=== PATIENT | male | born 1950 | race Caucasian/White ===

== ENCOUNTER 2020-10-06 21:29 | Inpatient (IN) | payer MEDICARE ==
[2020-10-06] MEDS ORDERED: PIPERACILLIN-TAZOBACTAM 3.375 GM in SODIUM CHLORIDE 0.9% 100 ML IVPB STA (22:18)
--- NOTE | 2020-10-06 22:18 | ED ---
General Adult HPI - General Chief complaint: Shortness of Breath Stated complaint: +COVID,FRANCIA Time Seen by Provider: 10/06/20 22:03 Source: EMS Mode of arrival: EMS - History of Present Illness Initial comments: Dictation was produced using Net[employer] dictation software. please excuse any grammatical, word or spelling errors. This patient was cared for during a federal and state declared state of emergency secondary to Covid 19 Chief Complaint: 70-year-old male transferred from [facility] for Covid 19 and hypoxic respiratory failure. History of Present Illness: 70-year-old male he is unable to provide HPI. Patient was transferred from [facility]. Patient's Covid positive found have diffuse bilateral infiltrates consistent Covid 19 pneumonia. Patient was found to be hypoxic and was intubated [facility]. He was transferred here for higher level of care. Documentation Was Reviewed. Patient Allegedly Has Been Dyspneic for a Week. He Was Urged by His to Seek Medical Attention. Unable to obtain significant to review of systems PHYSICAL EXAM: General Impression: Obtunded, intubated, dusky skin HEENT: Normocephalic atraumatic, extra-ocular movements intact, pupils equal and reactive to light bilaterally, dry mucous membranes, pupils nondilated Cardiovascular tachycardic Chest: Intubated, no retractions, no tachypnea Abdomen: abdomen soft, non-distended, no organomegaly Musculoskeletal: Pulses present and equal in all extremities, no peripheral edema Neurological: Sedated ED course: 70-year-old male transferred from [facility] for hypoxic respiratory failure. Eyes in the emergency department shows tachycardia, rest of vital signs within acceptable limits. Central line was placed in the left internal jugular, radial art line was placed in the right upper extremity. Chest her documentation was reviewed. He had elevated troponin. Transfer DrTone placed patient on heparin. Patient had elevated proBNP, elevated protein calcitonin, elevated white blood cell count. Differential is wide and patient's respiratory symptoms are multifactorial. Patient was given Decadron. Patient be placed on antibiotics concerns of superimposed bacterial pneumonia. Case is discussed in detail with surveillance manager Dr. Blood. He request that CT imaging be performed for concerns of possible pulmonary embolism. CT angios did not show any pulmonary embolism. Patient will be transferred to the intensive care unit for further care. EKG interpretation: Ventricular rate 120, sinus tachycardia, SD interval 134, QRS 102, QTc 467, there is a S1 every 3 T3 pattern. No SD prolongation, no QTC prolongation. - Related Data Home Medications Medication Instructions Recorded Confirmed Lansoprazole [Prevacid] 15 mg PO DAILY 10/06/20 10/06/20 Allergies Allergy/AdvReac Type Severity Reaction Status Date / Time No Known Allergies Allergy Unverified 10/06/20 22:05 Review of Systems ROS Statement: Those systems with pertinent positive or pertinent negative responses have been documented in the HPI. ROS Other: All systems not noted in ROS Statement are negative. Course Vital Signs 10/06/20 10/06/20 10/06/20 21:45 22:00 22:45 Temperature 97.8 F Pulse Rate 134 H 128 H 126 H Respiratory 16 28 H 22 Rate Blood Pressure 156/114 157/118 148/99 O2 Sat by Pulse 85 L 85 L 91 L Oximetry 10/06/20 10/06/20 10/06/20 22:51 23:00 23:30 Temperature Pulse Rate 124 H 125 H Respiratory 31 H 30 H Rate Blood Pressure 148/99 148/99 134/88 O2 Sat by Pulse 89 L Oximetry 10/07/20 10/07/20 00:10 00:47 Temperature Pulse Rate 118 H 120 H Respiratory 40 H 36 H Rate Blood Pressure 126/87 90/67 O2 Sat by Pulse 85 L 83 L Oximetry Procedures - Procedures Initial comment: Right radial wrist was prepped and draped in usual sterile fashion. Ultrasound guided radial art line placement was performed with successful placement. Good waveforms noted on monitor. - ABG Interpretation Ph: 7.27 PCO2: 57 PO2: 54 Bicarbonate: 43 Interpretation: respiratory acidosis - Central Line Placement Left IJ Consent Obtained: emergent situation Patient Placed on Monitor/Pulse Ox: Yes MD Prep: mask, gown, gloves Central Line Prep: Chlorhexidine scrub Ultrasound Used for Placement: Yes Central Line Lumen Inserted: triple Bloods Obtained for Lab: No Central Line Position: good blood return, all ports aspirated, flushed, capped, sutured in place with 3-0 nylon Dressing Applied: Tegaderm Post Procedure X-Ray: tip of catheter in good position Patient Tolerated Procedure: well Complications: none Medical Decision Making - Medical Decision Making Patient's condition was discussed with son Shaquille Adam Junior at approximately 1045 he prefers that people contact him at #[phone]. Alternate number for family be reached at is [phone]. Case was discussed Dr. Rogers is willing to accept patient care for [facility] hospitalist group. Care was discussed with Dr. Whitfield and Percocet CT angios the chest be performed at [facility] for possible PE. - Lab Data Result diagrams: 10/08/20 03:45 10/08/20 03:45 Lab Results 10/06/20 10/06/20 10/06/20 Range/Units 22:43 22:43 22:43 WBC 17.1 H (3.8-10.6) k/uL RBC 5.81 (4.30-5.90) m/uL Hgb 16.2 (13.0-17.5) gm/dL Hct 49.9 (39.0-53.0) % MCV 86.0 (80.0-100.0) fL MCH 27.9 (25.0-35.0) pg MCHC 32.4 (31.0-37.0) g/dL RDW 13.6 (11.5-15.5) % Plt Count 433 (150-450) k/uL MPV 8.5 Neutrophils % 90 % Lymphocytes % 4 % Monocytes % 5 % Eosinophils % 1 % Basophils % 0 % Neutrophils # 15.4 H (1.3-7.7) k/uL Lymphocytes # 0.6 L (1.0-4.8) k/uL Monocytes # 0.8 (0-1.0) k/uL Eosinophils # 0.1 (0-0.7) k/uL Basophils # 0.0 (0-0.2) k/uL PT 10.5 (9.0-12.0) sec INR 1.0 (<1.2) APTT 24.0 (22.0-30.0) sec D-Dimer 1.24 H (<0.60) mg/L FEU Sodium 132 L (137-145) mmol/L Potassium 4.9 (3.5-5.1) mmol/L Chloride 101 (98-107) mmol/L Carbon Dioxide 22 (22-30) mmol/L Anion Gap 9 mmol/L BUN 23 H (9-20) mg/dL Creatinine 0.89 (0.66-1.25) mg/dL Est GFR (CKD-EPI)AfAm >90 (>60 ml/min/1.73 sqM) Est GFR (CKD-EPI)NonAf 86 (>60 ml/min/1.73 sqM) Glucose 233 H (74-99) mg/dL Plasma Lactic Acid Regan (0.7-2.0) mmol/L Calcium 8.5 (8.4-10.2) mg/dL Magnesium 2.3 (1.6-2.3) mg/dL Ferritin 1306.7 H (22.0-322.0) ng/mL Total Bilirubin 1.0 (0.2-1.3) mg/dL AST 40 (17-59) U/L ALT 25 (4-49) U/L Alkaline Phosphatase 118 (38-126) U/L Lactate Dehydrogenase 1033 H (313-618) U/L C-Reactive Protein 247.2 H (<10.0) mg/L Total Protein 6.0 L (6.3-8.2) g/dL Albumin 3.0 L (3.5-5.0) g/dL Procalcitonin (0.02-0.09) ng/mL 10/06/20 10/06/20 Range/Units 22:43 22:43 WBC (3.8-10.6) k/uL RBC (4.30-5.90) m/uL Hgb (13.0-17.5) gm/dL Hct (39.0-53.0) % MCV (80.0-100.0) fL MCH (25.0-35.0) pg MCHC (31.0-37.0) g/dL RDW (11.5-15.5) % Plt Count (150-450) k/uL MPV Neutrophils % % Lymphocytes % % Monocytes % % Eosinophils % % Basophils % % Neutrophils # (1.3-7.7) k/uL Lymphocytes # (1.0-4.8) k/uL Monocytes # (0-1.0) k/uL Eosinophils # (0-0.7) k/uL Basophils # (0-0.2) k/uL PT (9.0-12.0) sec INR (<1.2) APTT (22.0-30.0) sec D-Dimer (<0.60) mg/L FEU Sodium (137-145) mmol/L Potassium (3.5-5.1) mmol/L Chloride (98-107) mmol/L Carbon Dioxide (22-30) mmol/L Anion Gap mmol/L BUN (9-20) mg/dL Creatinine (0.66-1.25) mg/dL Est GFR (CKD-EPI)AfAm (>60 ml/min/1.73 sqM) Est GFR (CKD-EPI)NonAf (>60 ml/min/1.73 sqM) Glucose (74-99) mg/dL Plasma Lactic Acid Regan 2.2 H* (0.7-2.0) mmol/L Calcium (8.4-10.2) mg/dL Magnesium (1.6-2.3) mg/dL Ferritin (22.0-322.0) ng/mL Total Bilirubin (0.2-1.3) mg/dL AST (17-59) U/L ALT (4-49) U/L Alkaline Phosphatase (38-126) U/L Lactate Dehydrogenase (313-618) U/L C-Reactive Protein (<10.0) mg/L Total Protein (6.3-8.2) g/dL Albumin (3.5-5.0) g/dL Procalcitonin 5.27 H (0.02-0.09) ng/mL Critical Care Time Critical Care Time: Yes Total Critical Care Time: 33 Disposition Clinical Impression: COVID-19, Acute respiratory failure with hypoxia Disposition: ADMITTED IP TO THIS HOSP Condition: Critical Decision Time: 08:02
--- NOTE | 2020-10-06 22:52 | XR ---
EXAMINATION TYPE: XR chest 1V portable DATE OF EXAM: 10/06/2020 COMPARISON: Today HISTORY: Line placement TECHNIQUE: Single view FINDINGS: There is nasogastric tube in the stomach. This is seen over the gastric fundus. There is left jugular catheter with the tip in the right atrium. There is endotracheal tube which is quite low and only 5 mm from the aman. There is patchy infiltrate and atelectasis in the lower lung naik. IMPRESSION: Malposition of the endotracheal tube which is at the origin of the right mainstem bronchu s. Nasogastric tube in good position. There is increased infiltrate and atelectasis in the lung naik compared to exam 2 hours ago.
[2020-10-06 22:58] LABS: Basophils % (A) 0 %; Eosinophils # (A) 0.1 k/uL (0-0.7); Eosinophils % (A) 1 %; HCT 49.9 % (39.0-53.0); HGB 16.2 gm/dL (13.0-17.5); Lymphocytes # (A) 0.6 k/uL (1.0-4.8); Lymphocytes % (A) 4 %; MCH 27.9 pg (25.0-35.0); MCHC 32.4 g/dL (31.0-37.0); Mean Platelet Volume 8.5; Monocytes # (A) 0.8 k/uL (0-1.0); Monocytes % (A) 5 %; Neutrophils # (A) 15.4 k/uL (1.3-7.7); Neutrophils % (A) 90 %; Platelet Count 433 k/uL (150-450); RBC 5.81 m/uL (4.30-5.90); RDW 13.6 % (11.5-15.5); WBC 17.1 k/uL (3.8-10.6)
[2020-10-06] MEDS ORDERED: ACETAMINOPHEN SUPPOSITORY 650 MG SUPP RECTAL PRN (22:59)
[2020-10-06] MEDS ORDERED: NALOXONE 0.4 MG/ML 1 ML VIAL IV PRN (22:59)
[2020-10-06 23:09] LABS: ALT 25 U/L (4-49); AST 40 U/L (17-59); African American GFR (CKD) >90 (>60 ml/min/1.73 sqM); Alkaline Phosphatase 118 U/L (38-126); Anion Gap 9 mmol/L; Blood Urea Nitrogen 23 mg/dL (9-20); Calcium 8.5 mg/dL (8.4-10.2); Carbon Dioxide 22 mmol/L (22-30); Chloride 101 mmol/L (98-107); Glucose 233 mg/dL (74-99); LDH 1033 U/L (313-618); Magnesium 2.3 mg/dL (1.6-2.3); Non-African American GFR(CKD) 86 (>60 ml/min/1.73 sqM); Potassium 4.9 mmol/L (3.5-5.1); Sodium 132 mmol/L (137-145)
[2020-10-06 23:19] LABS: Prothrombin Time 10.5 sec (9.0-12.0)
[2020-10-06 23:23] LABS: C Reactive Protein 247.2 mg/L (<10.0)
[2020-10-06 23:25] LABS: D-Dimer 1.24 mg/L FEU (<0.60)
--- NOTE | 2020-10-06 23:36 | CT ---
EXAMINATION TYPE: CT angio chest DATE OF EXAM: 10/06/2020 COMPARISON: None HISTORY: AMS , ELEVATED D-DIMER CT DLP: 386 mGycm Automated exposure control for dose reduction was used. CONTRAST: Performed with IV Contrast, patient injected with 70 mL of Isovue 370. There are 3-D post processed images. There is endotracheal tube. There is nasogastric tube in the esophagus and the tip is in the distal e sophagus. Heart is top normal in size. There is no pericardial effusion. There is airspace consolidat ion in both lower lobes. There is patchy atelectasis at the lung bases also. There is coarse intersti tial infiltrate in the upper lung naik. There is no mediastinal adenopathy. There is normal contras t opacification of the pulmonary arteries. There are no filling defects. Facet aorta shows no aneurys m or dissection. Thoracic spine is intact. There is no compression fracture. Upper abdominal soft tissues are intact. IMPRESSION: No evidence of pulmonary embolism. No aortic aneurysm or dissection. Extensive airspace consolidation and atelectasis in the lower lung naik. Nasogastric tube is in the distal esophagus.
[2020-10-07] MEDS: SODIUM CHLORIDE 0.9% 1,000 ML IV SCH ×2 (00:01→23:14)
[2020-10-07 00:40] LABS: ABG Base Excess -5.3 mmol/L; ABG HCO3 19 mmol/L (21-25); ABG Oxygen Saturation 81.1 % (94-97); ABG PCO2 29 mmHg (35-45); ABG PH 7.43 (7.35-7.45); ABG TCO2 20 mmol/L (19-24)
[2020-10-07 00:47] LABS: ABG PO2 43 mmHg (83-108); Allen Test Performed? no
[2020-10-07 01:23] LABS: Glucose,Whole Blood 182 mg/dL (75-99)
[2020-10-07] MEDS ORDERED: NOREPINEPHRIN 4 MG-0.9% NS PMX 4 MG/250 ML ML IV ONE (01:30)
[2020-10-07] MEDS ORDERED: MIDAZOLAM 1 MG/ML 5 ML VIAL IV STA (01:36)
[2020-10-07] MEDS: NOREPINEPHRINE 8 MG in SODIUM CHLORIDE 0.9% 250 ML IV SCH ×2 (02:00→14:48)
[2020-10-07 05:00] LABS: ABG Base Excess -5.6 mmol/L; ABG HCO3 19 mmol/L (21-25); ABG Oxygen Saturation 86.1 % (94-97); ABG PCO2 32 mmHg (35-45); ABG PH 7.39 (7.35-7.45); ABG TCO2 20 mmol/L (19-24)
[2020-10-07 05:05] LABS: Basophils # (A) 0.1 k/uL (0-0.2); Basophils % (A) 1 %; Eosinophils # (A) 0.1 k/uL (0-0.7); Eosinophils % (A) 0 %; HCT 45.7 % (39.0-53.0); HGB 15.3 gm/dL (13.0-17.5); Lymphocytes # (A) 0.2 k/uL (1.0-4.8); Lymphocytes % (A) 1 %; MCH 28.4 pg (25.0-35.0); MCHC 33.5 g/dL (31.0-37.0); MCV 84.9 fL (80.0-100.0); Mean Platelet Volume 7.7; Monocytes # (A) 0.9 k/uL (0-1.0); Monocytes % (A) 5 %; Neutrophils # (A) 18.1 k/uL (1.3-7.7); Neutrophils % (A) 93 %; Platelet Count 459 k/uL (150-450); RBC 5.38 m/uL (4.30-5.90); RDW 13.3 % (11.5-15.5); WBC 19.6 k/uL (3.8-10.6)
[2020-10-07 05:15] LABS: D-Dimer 3.68 mg/L FEU (<0.60)
[2020-10-07 05:37] LABS: Allen Test Performed? no
[2020-10-07 05:42] LABS: African American GFR (CKD) >90 (>60 ml/min/1.73 sqM); Anion Gap 8 mmol/L; Blood Urea Nitrogen 23 mg/dL (9-20); Calcium 8.1 mg/dL (8.4-10.2); Carbon Dioxide 19 mmol/L (22-30); Chloride 105 mmol/L (98-107); Creatine Kinase 109 U/L (55-170); Glucose 163 mg/dL (74-99); LDH 891 U/L (313-618); Non-African American GFR(CKD) 81 (>60 ml/min/1.73 sqM); Potassium 4.5 mmol/L (3.5-5.1); Sodium 132 mmol/L (137-145)
[2020-10-07] MEDS ORDERED: DEXAMETHASONE SOD PHOSPHATE 10 MG/ML 1 ML VIAL IV STA (05:51)
[2020-10-07] MEDS ORDERED: SODIUM CHLORIDE 0.9% 1,000 ML IV ONE (05:53)
[2020-10-07 05:54] LABS: C Reactive Protein 252.7 mg/L (<10.0)
[2020-10-07 06:12] LABS: Glucose,Whole Blood 160 mg/dL (75-99)
--- NOTE | 2020-10-07 06:51 | P.CNPUL ---
History of Present Illness Consult date: 10/07/20 Reason for consult: pneumonia History of present illness: This is a 68-year-old male patient, essentially negative medical history, who came into [facility] with worsening shortness of breath and the patient was found to have bilateral pneumonia and further investigation confirmed the presence of COVID 19 related pneumonia. The patient was very much hypoxic in the emergency department and the patient was intubated and placed on a mec hanical ventilator and following that the patient was transferred to [facility] for further investigation. At the time of the arrival, the patient was already intubated on a mechanical ventilator. A central line was placed and the left IJ and an art line was also established in the right radial artery. Following that, the patient was kept on a mechanical ventilator sedated with propofol and the current vent setting this morning included an assist-control of 20 and tidal volume of 450 FiO2 of 100% with a PEEP of 10. Morning blood gases showed a pH of 7.39 with a pCO2 of 31 and a pO2 of 49. Based on that, I increased the PEEP up to 14 and the tidal volume to 400s. The rate at 20 for now. The chest x-ray showing diffuse bilateral pulmonary infiltrates. A CT angiogram was in the emergency department and there was no evidence of any pulmonary embolism. The CAT scan also showed extensive airspace consolidation and atelectasis in the lower lung naik. A repeat chest x-ray was done today and it showed extensive airspace disease bilaterally especially in the lower lobes. The patient' the LDH was 891, C-reactive protein is 252, lactic acid was at 2.1. The patient has a known BUN and creatinine. white cell count is at 19.6. The patient has lymphopenia. D-dimer is at 3.68 . Overnight, the patient also had to placed on pressors and the patient is currently on norepi nephrine infusion running at 0.1 mcg/kg per minute. The patient is currently receiving a bolus of normal saline 1 L and a maintenance fluid to be normal saline at the rate of 100 mL an hour. Enterofeeding will be also initiated. He had a low-grade fever. No nausea. No vomiting. No emesis. No diarrhea. No abdominal distention. No other complaints otherwise. There was apparently an elevated troponin from the hospital and repeat troponin levels will be obtained. Echocardiogram will be obtained. Review of Systems ROS unobtainable: due to endotracheal tube Past Medical History Additional Past Medical History / Comment(s): GIB - duodenal ulcer 2011, hypospadia History of Any Multi-Drug Resistant Organisms: None Reported Additional Past Surgical History / Comment(s): surgery to fix bleeding ulcer - 2011 Past Anesthesia/Blood Transfusion Reactions: No Reported Reaction Past Psychological History: No Psychological Hx Reported Smoking Status: Former smoker Additional Past Alcohol Use History / Comment(s): per stopped drinking 1994 Past Drug Use History: None Reported Medications and Allergies Home Medications Medication Instructions Recorded Confirmed Type Lansoprazole [Prevacid] 15 mg PO DAILY 10/06/20 10/06/20 History Allergies Allergy/AdvReac Type Severity Reaction Status Date / Time No Known Allergies Allergy Unverified 10/06/20 22:05 Physical Exam Vitals: Vital Signs Temp Pulse Resp BP Pulse Ox 10/07/20 03:30 112 H 22 87 L 10/07/20 03:15 109 H 23 105/76 88 L 10/07/20 03:00 108 H 21 90 L 10/07/20 02:45 108 H 24 93/62 88 L 10/07/20 02:30 111 H 26 H 87/68 88 L 10/07/20 02:15 113 H 22 87/68 89 L 10/07/20 02:00 120 H 23 76/58 87 L 10/07/20 01:51 120 H 21 72/57 88 L 10/07/20 00:47 120 H 36 H 90/67 83 L 10/07/20 00:10 118 H 40 H 126/87 85 L 10/06/20 23:30 125 H 30 H 134/88 89 L 10/06/20 23:00 31 H 148/99 10/06/20 22:51 124 H 148/99 10/06/20 22:45 126 H 22 148/99 91 L 10/06/20 22:00 128 H 28 H 157/118 85 L 10/06/20 21:45 97.8 F 134 H 16 156/114 85 L Intake and Output 10/06/20 10/06/20 10/07/20 14:59 22:59 06:59 Intake Total 93.642 Output Total 0 Balance 93.642 Intake: IV 40 Sodium Chloride 0.9% 1, 40 000 ml @ 20 mls/hr IV . Q24H [facility] Rx#:[id number] Intake, IV Titration 53.642 Amount Norepinephrine 8 mg In 43.842 Sodium Chloride 0.9% 250 ml @ 0.05 MCG/KG/MIN 6. 773 mls/hr IV .Q24H [facility] Rx#:[id number] propofoL 1,000 mg In 1.295 Empty Bag 1 bag @ Titrate IV .Q0M [facility] Rx#: [id number] propofoL 1,000 mg In 8.505 Empty Bag 1 bag @ Titrate IV .Q0M [facility] Rx#: [id number] Output: Urine 0 Other: Weight 70 kg 70 kg ABP, PAP, CO, CI - Last 8 Hours Arterial Blood Pressure 122/71 Arterial Blood Pressure 102/63 Arterial Blood Pressure 97/60 Arterial Blood Pressure 92/57 Arterial Blood Pressure 94/60 Arterial Blood Pressure 85/58 Arterial Blood Pressure 90/59 Arterial Blood Pressure 80/53 Arterial Blood Pressure 152/94 Arterial Blood Pressure 125/82 Gen. appearance, the patient is currently on propofol running at 30 mcg/kg per minute for adequate sedation. The patient is synchronous with the mechanical ventilator. Head exam was generally normal. There was no scleral icterus or corneal arcus. Mucous membranes were moist. Neck was supple and without jugular venous distension, thyromegaly, or carotid bruits. Carotids were easily palpable bilaterally. There was no adenopathy. The patient has orogastric and orotracheal tube and both of them are in place. Lungs sounds are diminished and the patient has crackles in the lung bases bilaterally. Cardiac exam revealed the PMI to be normally situated and sized. The rhythm was regular and no extrasystoles were noted during several minutes of auscultation. The first and second heart sounds were normal and physiologic splitting of the second heart sound was noted. There were no murmurs, rubs, clicks, or gallops. Abdominal exam revealed normal bowel sounds. The abdomen was soft, non-tender, and without masses, organomegaly, or appreciable enlargement of the abdominal aorta. Examination of the extremities revealed easily palpable radial, femoral and pedal pulses. There was no cyanosis, clubbing or edema. Examination of the skin revealed no evidence of significant rashes, suspicious appearing nevi or other concerning lesions. Neurologically the patient is sedated, comfortable, withdraws to painful stimulation. Pupils are equal and reactive to light. No focal neurological deficits. Results - Laboratory Findings CBC and BMP: 10/07/20 04:50 10/07/20 04:50 ABG ABG pH 7.39 (7.35-7.45) 10/07/20 04:59 ABG pCO2 32 mmHg (35-45) L 10/07/20 04:59 ABG pO2 50 mmHg (83-108) L* 10/07/20 04:59 ABG O2 Saturation 86.1 % (94-97) L 10/07/20 04:59 PT/INR, D-dimer PT 10.5 sec (9.0-12.0) 10/06/20 22:43 INR 1.0 (<1.2) 10/06/20 22:43 D-Dimer 3.68 mg/L FEU (<0.60) H 10/07/20 04:50 Abnormal lab findings: Abnormal Labs 10/06/20 10/06/20 10/06/20 22:43 22:43 22:43 WBC 17.1 H Plt Count Neutrophils # 15.4 H Lymphocytes # 0.6 L Fibrinogen D-Dimer 1.24 H ABG pCO2 ABG pO2 ABG HCO3 ABG O2 Saturation Sodium 132 L Carbon Dioxide BUN 23 H Glucose 233 H POC Glucose (mg/dL) Plasma Lactic Acid Regan Calcium Lactate Dehydrogenase 1033 H C-Reactive Protein 247.2 H Total Protein 6.0 L Albumin 3.0 L 10/06/20 10/07/20 10/07/20 22:43 00:28 01:23 WBC Plt Count Neutrophils # Lymphocytes # Fibrinogen D-Dimer ABG pCO2 29 L ABG pO2 43 L* ABG HCO3 19 L ABG O2 Saturation 81.1 L Sodium Carbon Dioxide BUN Glucose POC Glucose (mg/dL) 182 H Plasma Lactic Acid Regan 2.2 H* Calcium Lactate Dehydrogenase C-Reactive Protein Total Protein Albumin 10/07/20 10/07/20 10/07/20 03:10 04:50 04:50 WBC 19.6 H Plt Count 459 H Neutrophils # 18.1 H Lymphocytes # 0.2 L Fibrinogen D-Dimer ABG pCO2 ABG pO2 ABG HCO3 ABG O2 Saturation Sodium 132 L Carbon Dioxide 19 L BUN 23 H Glucose 163 H POC Glucose (mg/dL) Plasma Lactic Acid Regan 2.1 H* Calcium 8.1 L Lactate Dehydrogenase 891 H C-Reactive Protein 252.7 H Total Protein Albumin 10/07/20 10/07/20 10/07/20 04:50 04:59 06:09 WBC Plt Count Neutrophils # Lymphocytes # Fibrinogen 812 H D-Dimer 3.68 H ABG pCO2 32 L ABG pO2 50 L* ABG HCO3 19 L ABG O2 Saturation 86.1 L Sodium Carbon Dioxide BUN Glucose POC Glucose (mg/dL) 160 H Plasma Lactic Acid Regan Calcium Lactate Dehydrogenase C-Reactive Protein Total Protein Albumin - Diagnostic Findings Chest x-ray: image reviewed CT scan - chest: image reviewed Assessment and Plan Plan: 1 acute bilateral Covid 19 related pneumonia with extensive consolidation and airspace disease bilaterally mainly in the mid and lower lung naik 2 acute hypoxic respiratory failure secondary to above, requiring intubation mechanical ventilation. 3 shortness of breath secondary to above 4 mild leukocytosis with lymphopenia 5 suspect non-STEMI and the patient's troponin from [facility] was at 1.72. The EKG showed no ST segment elevation. There was poor R-wave progression and is sinus tachycardia. Some Q waves over the anterior leads. Repeat cardiac enzymes are still pending for now 6 elevated inflammatory markers secondary to above 7 hypotension currently on low-dose pressors for hemodynamic support 8 hypospadia and a Govea catheter needs to be established Plan Continue ventilator support and necessity ventilator changes will be done Doctor tidal volume to 400 and increased the PEEP up to 14 and keep the FiO2 at 100% and repeated blood gases and 30 minutes Started patient on Decadron X milligrams IV push every 24 hours Start the patient on Remdesivir per protocol Give the patient a total of 2 units of, less than plasma Keep the patient sedated with propofol Monitor CVP Give the patient a bolus of 1 L of normal saline and attempt to wean off the pre ssors Check cardiac enzymes Repeat EKG Obtain echocardiogram Continue the supplements with vitamin C, vitamin D, melatonin and Pepcid and zinc Lovenox 0.5 mg per KG every 12 hours for a d-dimer between 3 and 4 Enteral feeding for nutritional support Consult urology for Govea catheter insertion as the patient has a hypospadia and we fail to establish a Govea catheter on this patient. Condition is critical and will continue to follow make further recommendations based on his progress. Time with Patient: Greater than 30
--- NOTE | 2020-10-07 07:43 | P.CRDCN ---
History of Present Illness Consult date: 10/07/20 Chief complaint: Shortness of breath History of present illness: This is a 70-year-old gentleman who requested to see in the intensive care unit for further evaluation and management of abnormal troponin. The patient currently is intubated and he is on mechanical ventilation and the history was taken from the chart as well as from the nurse taking care of the patient. Initially the patient presented to the emergency department at a local hospital with increasing shortness of breath for the last several days. No indication that he was experiencing any symptoms of chest pain or chest discomfort. He was found to be hypoxic and at that point the patient was intubated and placed on mechanical ventilation. He was then transferred to the intensive care unit here at [facility]. The troponin was checked at the other hospital and came in to be elevated without have any documentation of troponin in this hospital but we are in process of obtaining 3 sets of serial cardiac enzymes. The EKG here revealed sinus rhythm with a Q wave inferiorly and about half millimeter ST segment elevation inferiorly. The patient seems to be completed and infarct. No echocardiogram was done. Currently the patient is intubated and he is on mechanical ventilation and also he is hemodynamically unstable. He was seen by the fill plant operator and he was diagnosed with pneumonia related to COVID-19 infection. He is septic. In terms of past medical history the patient does not have any history of diabetes or hypertension or dyslipidemia and no coronary artery disease or congestive heart failure or cardiac arrhythmia but at the same time the patient never seen by a physician for the last several years. At this point we will consider a conservative medical approach. I am going to add aspirin. He is on Lovenox which we will continue. I would hold metoprolol because of the and is stable blood pressure requiring vasopressors. I would add high intensity statin. An echocardiogram was ordered and we'll follow-up on that. Past Medical History Additional Past Medical History / Comment(s): GIB - duodenal ulcer 2011, hypospadia History of Any Multi-Drug Resistant Organisms: None Reported Additional Past Surgical History / Comment(s): surgery to fix bleeding ulcer - 2011 Past Anesthesia/Blood Transfusion Reactions: No Reported Reaction Past Psychological History: No Psychological Hx Reported Smoking Status: Former smoker Additional Past Alcohol Use History / Comment(s): per stopped drinking 1994 Past Drug Use History: None Reported Medications and Allergies Home Medications Medication Instructions Recorded Confirmed Type Lansoprazole [Prevacid] 15 mg PO DAILY 10/06/20 10/06/20 History Allergies Allergy/AdvReac Type Severity Reaction Status Date / Time No Known Allergies Allergy Unverified 10/06/20 22:05 Physical Exam Vitals: Vital Signs Temp Pulse Resp BP Pulse Ox 10/07/20 03:30 112 H 22 87 L 10/07/20 03:15 109 H 23 105/76 88 L 10/07/20 03:00 108 H 21 90 L 10/07/20 02:45 108 H 24 93/62 88 L 10/07/20 02:30 111 H 26 H 87/68 88 L 10/07/20 02:15 113 H 22 87/68 89 L 10/07/20 02:00 120 H 23 76/58 87 L 10/07/20 01:51 120 H 21 72/57 88 L 10/07/20 00:47 120 H 36 H 90/67 83 L 10/07/20 00:10 118 H 40 H 126/87 85 L 10/06/20 23:30 125 H 30 H 134/88 89 L 10/06/20 23:00 31 H 148/99 10/06/20 22:51 124 H 148/99 10/06/20 22:45 126 H 22 148/99 91 L 10/06/20 22:00 128 H 28 H 157/118 85 L 10/06/20 21:45 97.8 F 134 H 16 156/114 85 L Intake and Output 10/06/20 10/07/20 10/07/20 22:59 06:59 14:59 Intake Total 93.642 Output Total 0 Balance 93.642 Intake: IV 40 Sodium Chloride 0.9% 1, 40 000 ml @ 20 mls/hr IV . Q24H MAURISIO Rx#:[id number] Intake, IV Titration 53.642 Amount Norepinephrine 8 mg In 43.842 Sodium Chloride 0.9% 250 ml @ 0.05 MCG/KG/MIN 6. 773 mls/hr IV .Q24H MAURISIO Rx#:[id number] propofoL 1,000 mg In 1.295 Empty Bag 1 bag @ Titrate IV .Q0M ONE Rx#: [id number] propofoL 1,000 mg In 8.505 Empty Bag 1 bag @ Titrate IV .Q0M MAURISIO Rx#: [id number] Output: Urine 0 Other: Weight 70 kg 70 kg ABP, PAP, CO, CI - Last 8 Hours Arterial Blood Pressure 122/71 Arterial Blood Pressure 102/63 Arterial Blood Pressure 97/60 Arterial Blood Pressure 92/57 Arterial Blood Pressure 94/60 Arterial Blood Pressure 85/58 Arterial Blood Pressure 90/59 Arterial Blood Pressure 80/53 - Constitutional General appearance: no acute distress - Respiratory Respiratory: bilateral: CTA - Cardiovascular Rhythm: regular Heart sounds: normal: S1, S2 Results 10/07/20 04:50 10/07/20 04:50 Cardiac Enzymes 10/06/20 10/07/20 Range/Units 22:43 04:50 AST 40 (17-59) U/L Lactate Dehydrogenase 1033 H 891 H (313-618) U/L Coagulation 10/06/20 Range/Units 22:43 PT 10.5 (9.0-12.0) sec APTT 24.0 (22.0-30.0) sec CBC 10/06/20 10/07/20 Range/Units 22:43 04:50 WBC 17.1 H 19.6 H (3.8-10.6) k/uL RBC 5.81 5.38 (4.30-5.90) m/uL Hgb 16.2 15.3 (13.0-17.5) gm/dL Hct 49.9 45.7 (39.0-53.0) % Plt Count 433 459 H (150-450) k/uL Comprehensive Metabolic Panel 10/06/20 10/07/20 Range/Units 22:43 04:50 Sodium 132 L 132 L (137-145) mmol/L Potassium 4.9 4.5 (3.5-5.1) mmol/L Chloride 101 105 (98-107) mmol/L Carbon Dioxide 22 19 L (22-30) mmol/L BUN 23 H 23 H (9-20) mg/dL Creatinine 0.89 0.94 (0.66-1.25) mg/dL Glucose 233 H 163 H (74-99) mg/dL Calcium 8.5 8.1 L (8.4-10.2) mg/dL AST 40 (17-59) U/L ALT 25 (4-49) U/L Alkaline Phosphatase 118 (38-126) U/L Total Protein 6.0 L (6.3-8.2) g/dL Albumin 3.0 L (3.5-5.0) g/dL Current Medications Generic Name Dose Route Start Last Admin Trade Name Freq PRN Reason Stop Dose Admin Acetaminophen 650 mg 10/06/20 22:59 Acetaminophen Suppository 650 Mg Supp RECTAL Q4HR PRN Fever And/ Or Mild Pain Ascorbic Acid 250 mg 10/07/20 09:00 Ascorbic Acid 500 Mg Tab PO BID [facility] Aspirin 81 mg 10/07/20 09:00 Aspirin 81 Mg PO DAILY [facility] Atorvastatin Calcium 80 mg 10/07/20 21:00 Atorvastatin 80 Mg Tab PO HS [facility] Chlorhexidine Gluconate 15 ml 10/07/20 09:00 Chlorhexidine Gluconate 15 Ml Cup MUCOUS MEM BID [facility] Dexamethasone Sodium Phosphate 6 mg 10/08/20 09:00 Dexamethasone Sod Phosphate 10 Mg/Ml 1 Ml Vial IV DAILY [facility] Enoxaparin Sodium 35 mg 10/07/20 09:00 Enoxaparin 40 Mg/0.4 Ml Syringe SQ Q12HR MAURISIO Famotidine 20 mg 10/07/20 09:00 Famotidine 20 Mg/2 Ml Vial IV Q12HR MAURISIO Sodium Chloride 1,000 mls @ 100 mls/hr 10/06/20 23:00 10/07/20 00:01 Saline 0.9% IV 20 mls/hr .Q10H MAURISIO Administration Norepinephrine Bitartrate 8 mg 258 mls @ 6.773 mls/hr 10/07/20 01:45 10/07/20 05:37 / Sodium Chloride IV 0.1 mcg/kg/min .Q24H MAURISIO 13.545 mls/hr Titration Protocol 0.05 MCG/KG/MIN Propofol 1,000 mg/ IV Solution 100 mls @ 0 mls/hr 10/07/20 01:45 10/07/20 03:21 IV 20 mcg/kg/min .Q0M MAURISIO 8.4 mls/hr Titration Protocol Titrate Melatonin 5 mg 10/07/20 21:00 Melatonin 5 Mg Tablet PO HS MAURISIO Naloxone HCl 0.2 mg 10/06/20 22:59 Naloxone 0.4 Mg/Ml 1 Ml Vial IV Q2M PRN Opioid Reversal Zinc Sulfate 220 mg 10/07/20 09:00 Zinc Sulfate 220 Mg Cap PO DAILY MAURISIO Intake and Output 1210/07/20 10/07/20 22:59 06:59 14:59 Intake Total 93.642 Output Total 0 Balance 93.642 Intake: IV 40 Sodium Chloride 0.9% 1, 40 000 ml @ 20 mls/hr IV . Q24H MAURISIO Rx#:[id number] Intake, IV Titration 53.642 Amount Norepinephrine 8 mg In 43.842 Sodium Chloride 0.9% 250 ml @ 0.05 MCG/KG/MIN 6. 773 mls/hr IV .Q24H MAURISIO Rx#:[id number] propofoL 1,000 mg In 1.295 Empty Bag 1 bag @ Titrate IV .Q0M ONE Rx#: [id number] propofoL 1,000 mg In 8.505 Empty Bag 1 bag @ Titrate IV .Q0M MAURISIO Rx#: [id number] Output: Urine 0 Other: Weight 70 kg 70 kg 10/07/20 04:50 10/07/20 04:50 Assessment and Plan Assessment: Assessment #1 acute hypoxic respiratory failure #2 pneumonia related to COVID-19 infection #3 sepsis #4 acute coronary syndrome #5 multiple comorbid conditions Plan #1 continue Lovenox #2 add aspirin #3 hold any beta celina #4 add high intensity statin #5 obtain an echocardiogram was Doppler #6 follow up on the cardiac enzymes We will follow-up with the patient
[2020-10-07 08:23] LABS: Glucose,Whole Blood 148 mg/dL (75-99)
[2020-10-07 08:28] LABS: ABG Base Excess -7.3 mmol/L; ABG HCO3 18 mmol/L (21-25); ABG Oxygen Saturation 85.2 % (94-97); ABG PCO2 31 mmHg (35-45); ABG PH 7.37 (7.35-7.45); ABG TCO2 19 mmol/L (19-24); Allen Test Performed? Yes
[2020-10-07 08:29] LABS: ABG PO2 49 mmHg (83-108)
--- NOTE | 2020-10-07 08:36 | XR ---
EXAMINATION TYPE: XR chest 1V portable DATE OF EXAM: 10/07/2020 COMPARISON: 10/06/2020 INDICATION: Tube placement TECHNIQUE: Single frontal view of the chest is obtained. FINDINGS: The heart size is normal. The pulmonary vasculature is prominent. There is diffuse bibasilar infiltrates. Consolidation is at the left base. Right pleural fluid is pre sent. There could be some elevation of the right diaphragm remaining. Endotracheal tube tip is 2.5 cm above the aman. Nasogastric tube extends to the distal esophagus. S hould be advanced at least 10 cm for more typical positioning. IMPRESSION: 1. Bibasilar infiltrates. Left lower lobe consolidation is worsening. 2. Lines and catheters discussed above. 3. The nasogastric tube should be advanced at least 10 cm for more typical positioning
[2020-10-07] MEDS ORDERED: CISATRACURIUM 2 MG/ML 5 ML VIAL IV ONE (08:38)
--- NOTE | 2020-10-07 08:59 | P.PCN ---
Date of Procedure: 10/07/20 Preoperative Diagnosis: COVID 19 pneumonia Postoperative Diagnosis: COVID 19 pneumonia Procedure(s) Performed: arterial line insertion Anesthesia: local Surgeon: Jessica Blood Estimated Blood Loss (ml): 0 Pathology: none sent Condition: critical Disposition: ICU Operative Findings: arterial line insertion Indication: Hemodynamic monitoring. A time-out was completed verifying correct patient, procedure, site, positioning, and implant(s) or special equipment if applicable. Allens test was performed to ensure adequate perfusion. The patients left wrist was prepped and draped in sterile fashion. 1% Lidocaine was used to anesthetize the area. An 18G Arrow arterial line was introduced into the radial artery. The catheter was threaded over the guide wire and the needle was removed with appropriate pulsatile blood return. Blood loss was minimal. The catheter was then sutured in place to the skin and a sterile dressing applied. Perfusion to the extremity distal to the point of catheter insertion was checked and found to be adequate. The patient tolerated the procedure well and there were no complications.
[2020-10-07] MEDS: INSULIN ASPART (NovoLOG) 100 UNIT/ML VIAL SQ SCH ×3 (09:07→21:09)
[2020-10-07] MEDS: CHLORHEXIDINE GLUCONATE 15 ML CUP MUCOUS MEM SCH ×2 (09:11→21:08)
[2020-10-07] MEDS: ASPIRIN 81 MG PO SCH (09:11)
[2020-10-07] MEDS: ASCORBIC ACID 500 MG TAB PO SCH ×2 (09:11→21:08)
[2020-10-07] MEDS: ZINC SULFATE 220 MG CAP PO SCH (09:12)
[2020-10-07] MEDS: CISATRACURIUM 200 MG in SODIUM CHLORIDE 0.9% 180 ML IV SCH (09:12)
[2020-10-07] MEDS: FAMOTIDINE 20 MG/2 ML VIAL IV SCH ×2 (09:12→21:09)
[2020-10-07] MEDS: ENOXAPARIN 40 MG/0.4 ML SYRINGE SQ SCH ×2 (09:12→21:09)
[2020-10-07] MEDS ORDERED: REMDESIVIR 200 MG in SODIUM CHLORIDE 0.9% 250 ML IVPB ONE (10:09)
[2020-10-07 11:27] LABS: Ferritin 1306.7 ng/mL (22.0-322.0)
[2020-10-07 11:29] LABS: Ferritin 1497.7 ng/mL (22.0-322.0)
[2020-10-07 11:41] LABS: Glucose,Whole Blood 174 mg/dL (75-99)
[2020-10-07] MEDS: ARTIFICIAL TEARS-HYPROMELLOSE DROPS 15 ML BTL BOTH EYES SCH ×4 (11:43→23:43)
--- NOTE | 2020-10-07 12:00 | ECHOF ---
Referral Reason:elevated trop MEASUREMENTS -------- HEIGHT: 172.7 cm WEIGHT: 69.8 kg BP: 122/71 RVIDd: 3.4 cm (< 3.3) IVSd: 1.3 cm (0.6 - 1.1) LVIDd: 3.4 cm (3.9 - 5.3) LVPWd: 1.3 cm (0.6 - 1.1) IVSs: 1.8 cm LVIDs: 2.5 cm LVPWs: 1.5 cm LA Diam: 3.3 cm (2.7 - 3.8) LAESV Index (A-L): 11.56 ml/m Ao Diam: 3.5 cm (2.0 - 3.7) AV Cusp: 2.3 cm (1.5 - 2.6) MV EXCURSION: 26.377 mm (> 18.000) MV EF SLOPE: 743 mm/s (70 - 150) EPSS: 0.4 cm AR PHT: 549 ms RAP: 15.00 mmHg RVSP: 48.59 mmHg FINDINGS -------- This was a technically adequate study. The left ventricular size is normal. There is borderline concentric left ventricular hypertrophy. Overall left ventricular systolic function is moderate-severely impaired with, an EF between 30 - 35 %. The right ventricle is mildly enlarged. Normal LA size by volume 22+/-6 ml/m2. The right atrium is normal in size. Interatrial and interventricular septum intact. There is mild aortic valve sclerosis. There is mild aortic regurgitation. The mitral valve leaflets are mildly thickened. Mild mitral annular calcification present. Mild m itral regurgitation is present. Mild tricuspid regurgitation present. There is moderate pulmonary hypertension. The right ventric ular systolic pressure, as measured by Doppler, is 48.59mmHg. The pulmonic valve was not well visualized. The aortic root size is normal. Normal inferior vena cava with less than 50% inspiratory collapse consistent with estimated right atr ial pressure of 15 mmHg. There is no pericardial effusion. CONCLUSIONS -------- 1. The left ventricular size is normal. 2. There is borderline concentric left ventricular hypertrophy. 3. Overall left ventricular systolic function is moderate-severely impaired with, an EF between 30 - 35 %. 4. The right ventricle is mildly enlarged. 5. Normal LA size by volume 22+/-6 ml/m2. 6. There is mild aortic valve sclerosis. 7. There is mild aortic regurgitation. 8. The mitral valve leaflets are mildly thickened. 9. Mild mitral annular calcification present. 10. Mild mitral regurgitation is present. 11. Mild tricuspid regurgitation present. 12. There is moderate pulmonary hypertension. 13. The right ventricular systolic pressure, as measured by Doppler, is 48.59mmHg. 14. Normal inferior vena cava with less than 50% inspiratory collapse consistent with estimated right atrial pressure of 15 mmHg. 15. There is no pericardial effusion. CARBOY FILLER: Audrey Gomez RDCS
[2020-10-07 13:47] LABS: ABG Base Excess -6.7 mmol/L; ABG HCO3 21 mmol/L (21-25); ABG Oxygen Saturation 93.5 % (94-97); ABG PCO2 51 mmHg (35-45); ABG PH 7.22 (7.35-7.45); ABG PO2 77 mmHg (83-108); ABG TCO2 23 mmol/L (19-24); Allen Test Performed? Yes
--- NOTE | 2020-10-07 14:29 | P.GSCN ---
History of Present Illness Consult date: 10/07/20 Reason for Consult: Meatal stenosis, hypospadias Requesting physician: Jessica Blood History of present illness: The patient is a 70-year-old white male hospitalized for management of COVID-19 related pneumonia. He is intubated in the ICU. Multiple attempts to place a Govea catheter have been unsuccessful. I am consulted for this reason. Review of Systems ROS unobtainable: due to endotracheal tube Past Medical History Additional Past Medical History / Comment(s): GIB - duodenal ulcer 2011, hypospadia History of Any Multi-Drug Resistant Organisms: None Reported Additional Past Surgical History / Comment(s): surgery to fix bleeding ulcer - 2011 Past Anesthesia/Blood Transfusion Reactions: No Reported Reaction Past Psychological History: No Psychological Hx Reported Smoking Status: Former smoker Additional Past Alcohol Use History / Comment(s): per stopped drinking 1994 Past Drug Use History: None Reported Medications and Allergies Home Medications Medication Instructions Recorded Confirmed Type Lansoprazole [Prevacid] 15 mg PO DAILY 10/06/20 10/06/20 History Allergies Allergy/AdvReac Type Severity Reaction Status Date / Time No Known Allergies Allergy Unverified 10/06/20 22:05 Surgical - Exam Vital Signs Temp Pulse Resp BP Pulse Ox 97.8 F 134 H 16 156/114 85 L 10/06/20 21:45 10/06/20 21:45 10/06/20 21:45 10/06/20 21:45 10/06/20 21:45 - General well developed, well nourished - Genitourinary The phallus is normal. Subcoronal hypospadias is noted. The urethral meatus is very small (approximately 6-Finnish) in caliber. The scrotum and testes are normal. Results - Labs 10/07/20 04:50 10/07/20 04:50 Abnormal Lab Results - Last 24 Hours (Table) 10/06/20 10/06/20 10/06/20 Range/Units 22:43 22:43 22:43 WBC 17.1 H (3.8-10.6) k/uL Plt Count (150-450) k/uL Neutrophils # 15.4 H (1.3-7.7) k/uL Lymphocytes # 0.6 L (1.0-4.8) k/uL Fibrinogen (200-500) mg/dL D-Dimer 1.24 H (<0.60) mg/L FEU ABG pH (7.35-7.45) ABG pCO2 (35-45) mmHg ABG pO2 (83-108) mmHg ABG HCO3 (21-25) mmol/L ABG O2 Saturation (94-97) % Sodium 132 L (137-145) mmol/L Carbon Dioxide (22-30) mmol/L BUN 23 H (9-20) mg/dL Glucose 233 H (74-99) mg/dL POC Glucose (mg/dL) (75-99) mg/dL Plasma Lactic Acid Regan (0.7-2.0) mmol/L Calcium (8.4-10.2) mg/dL Ferritin 1306.7 H (22.0-322.0) ng/mL Lactate Dehydrogenase 1033 H (313-618) U/L Troponin I (0.000-0.034) ng/mL C-Reactive Protein 247.2 H (<10.0) mg/L Total Protein 6.0 L (6.3-8.2) g/dL Albumin 3.0 L (3.5-5.0) g/dL Procalcitonin (0.02-0.09) ng/mL 10/06/20 10/06/20 10/07/20 Range/Units 22:43 22:43 00:28 WBC (3.8-10.6) k/uL Plt Count (150-450) k/uL Neutrophils # (1.3-7.7) k/uL Lymphocytes # (1.0-4.8) k/uL Fibrinogen (200-500) mg/dL D-Dimer (<0.60) mg/L FEU ABG pH (7.35-7.45) ABG pCO2 29 L (35-45) mmHg ABG pO2 43 L* (83-108) mmHg ABG HCO3 19 L (21-25) mmol/L ABG O2 Saturation 81.1 L (94-97) % Sodium (137-145) mmol/L Carbon Dioxide (22-30) mmol/L BUN (9-20) mg/dL Glucose (74-99) mg/dL POC Glucose (mg/dL) (75-99) mg/dL Plasma Lactic Acid Regan 2.2 H* (0.7-2.0) mmol/L Calcium (8.4-10.2) mg/dL Ferritin (22.0-322.0) ng/mL Lactate Dehydrogenase (313-618) U/L Troponin I (0.000-0.034) ng/mL C-Reactive Protein (<10.0) mg/L Total Protein (6.3-8.2) g/dL Albumin (3.5-5.0) g/dL Procalcitonin 5.27 H (0.02-0.09) ng/mL 10/07/20 10/07/20 10/07/20 Range/Units 01:23 03:10 04:50 WBC 19.6 H (3.8-10.6) k/uL Plt Count 459 H (150-450) k/uL Neutrophils # 18.1 H (1.3-7.7) k/uL Lymphocytes # 0.2 L (1.0-4.8) k/uL Fibrinogen (200-500) mg/dL D-Dimer (<0.60) mg/L FEU ABG pH (7.35-7.45) ABG pCO2 (35-45) mmHg ABG pO2 (83-108) mmHg ABG HCO3 (21-25) mmol/L ABG O2 Saturation (94-97) % Sodium (137-145) mmol/L Carbon Dioxide (22-30) mmol/L BUN (9-20) mg/dL Glucose (74-99) mg/dL POC Glucose (mg/dL) 182 H (75-99) mg/dL Plasma Lactic Acid Regan 2.1 H* (0.7-2.0) mmol/L Calcium (8.4-10.2) mg/dL Ferritin (22.0-322.0) ng/mL Lactate Dehydrogenase (313-618) U/L Troponin I (0.000-0.034) ng/mL C-Reactive Protein (<10.0) mg/L Total Protein (6.3-8.2) g/dL Albumin (3.5-5.0) g/dL Procalcitonin (0.02-0.09) ng/mL 10/07/20 10/07/20 10/07/20 Range/Units 04:50 04:50 04:59 WBC (3.8-10.6) k/uL Plt Count (150-450) k/uL Neutrophils # (1.3-7.7) k/uL Lymphocytes # (1.0-4.8) k/uL Fibrinogen 812 H (200-500) mg/dL D-Dimer 3.68 H (<0.60) mg/L FEU ABG pH (7.35-7.45) ABG pCO2 32 L (35-45) mmHg ABG pO2 50 L* (83-108) mmHg ABG HCO3 19 L (21-25) mmol/L ABG O2 Saturation 86.1 L (94-97) % Sodium 132 L (137-145) mmol/L Carbon Dioxide 19 L (22-30) mmol/L BUN 23 H (9-20) mg/dL Glucose 163 H (74-99) mg/dL POC Glucose (mg/dL) (75-99) mg/dL Plasma Lactic Acid Regan (0.7-2.0) mmol/L Calcium 8.1 L (8.4-10.2) mg/dL Ferritin 1497.7 H (22.0-322.0) ng/mL Lactate Dehydrogenase 891 H (313-618) U/L Troponin I (0.000-0.034) ng/mL C-Reactive Protein 252.7 H (<10.0) mg/L Total Protein (6.3-8.2) g/dL Albumin (3.5-5.0) g/dL Procalcitonin (0.02-0.09) ng/mL 10/07/20 10/07/20 10/07/20 Range/Units 06:09 08:00 08:12 WBC (3.8-10.6) k/uL Plt Count (150-450) k/uL Neutrophils # (1.3-7.7) k/uL Lymphocytes # (1.0-4.8) k/uL Fibrinogen (200-500) mg/dL D-Dimer (<0.60) mg/L FEU ABG pH (7.35-7.45) ABG pCO2 (35-45) mmHg ABG pO2 (83-108) mmHg ABG HCO3 (21-25) mmol/L ABG O2 Saturation (94-97) % Sodium (137-145) mmol/L Carbon Dioxide (22-30) mmol/L BUN (9-20) mg/dL Glucose (74-99) mg/dL POC Glucose (mg/dL) 160 H 148 H (75-99) mg/dL Plasma Lactic Acid Regan (0.7-2.0) mmol/L Calcium (8.4-10.2) mg/dL Ferritin (22.0-322.0) ng/mL Lactate Dehydrogenase (313-618) U/L Troponin I 2.670 H* (0.000-0.034) ng/mL C-Reactive Protein (<10.0) mg/L Total Protein (6.3-8.2) g/dL Albumin (3.5-5.0) g/dL Procalcitonin (0.02-0.09) ng/mL 10/07/20 10/07/20 10/07/20 Range/Units 08:28 11:38 13:47 WBC (3.8-10.6) k/uL Plt Count (150-450) k/uL Neutrophils # (1.3-7.7) k/uL Lymphocytes # (1.0-4.8) k/uL Fibrinogen (200-500) mg/dL D-Dimer (<0.60) mg/L FEU ABG pH 7.22 L (7.35-7.45) ABG pCO2 31 L 51 H (35-45) mmHg ABG pO2 49 L* 77 L (83-108) mmHg ABG HCO3 18 L (21-25) mmol/L ABG O2 Saturation 85.2 L 93.5 L (94-97) % Sodium (137-145) mmol/L Carbon Dioxide (22-30) mmol/L BUN (9-20) mg/dL Glucose (74-99) mg/dL POC Glucose (mg/dL) 174 H (75-99) mg/dL Plasma Lactic Acid Regan (0.7-2.0) mmol/L Calcium (8.4-10.2) mg/dL Ferritin (22.0-322.0) ng/mL Lactate Dehydrogenase (313-618) U/L Troponin I (0.000-0.034) ng/mL C-Reactive Protein (<10.0) mg/L Total Protein (6.3-8.2) g/dL Albumin (3.5-5.0) g/dL Procalcitonin (0.02-0.09) ng/mL Diabetes panel 10/06/20 10/07/20 Range/Units 22:43 04:50 Sodium 132 L 132 L (137-145) mmol/L Potassium 4.9 4.5 (3.5-5.1) mmol/L Chloride 101 105 (98-107) mmol/L Carbon Dioxide 22 19 L (22-30) mmol/L BUN 23 H 23 H (9-20) mg/dL Creatinine 0.89 0.94 (0.66-1.25) mg/dL Glucose 233 H 163 H (74-99) mg/dL Calcium 8.5 8.1 L (8.4-10.2) mg/dL AST 40 (17-59) U/L ALT 25 (4-49) U/L Alkaline Phosphatase 118 (38-126) U/L Total Protein 6.0 L (6.3-8.2) g/dL Albumin 3.0 L (3.5-5.0) g/dL Calcium panel 10/06/20 10/07/20 Range/Units 22:43 04:50 Calcium 8.5 8.1 L (8.4-10.2) mg/dL Albumin 3.0 L (3.5-5.0) g/dL Pituitary panel 10/06/20 10/07/20 Range/Units 22:43 04:50 Sodium 132 L 132 L (137-145) mmol/L Potassium 4.9 4.5 (3.5-5.1) mmol/L Chloride 101 105 (98-107) mmol/L Carbon Dioxide 22 19 L (22-30) mmol/L BUN 23 H 23 H (9-20) mg/dL Creatinine 0.89 0.94 (0.66-1.25) mg/dL Glucose 233 H 163 H (74-99) mg/dL Calcium 8.5 8.1 L (8.4-10.2) mg/dL Adrenal panel 10/06/20 10/07/20 Range/Units 22:43 04:50 Sodium 132 L 132 L (137-145) mmol/L Potassium 4.9 4.5 (3.5-5.1) mmol/L Chloride 101 105 (98-107) mmol/L Carbon Dioxide 22 19 L (22-30) mmol/L BUN 23 H 23 H (9-20) mg/dL Creatinine 0.89 0.94 (0.66-1.25) mg/dL Glucose 233 H 163 H (74-99) mg/dL Calcium 8.5 8.1 L (8.4-10.2) mg/dL Total Bilirubin 1.0 (0.2-1.3) mg/dL AST 40 (17-59) U/L ALT 25 (4-49) U/L Alkaline Phosphatase 118 (38-126) U/L Total Protein 6.0 L (6.3-8.2) g/dL Albumin 3.0 L (3.5-5.0) g/dL Assessment and Plan (1) Urethral meatal stenosis Current Visit: Yes Status: Acute Code(s): N35.919 - UNSPECIFIED URETHRAL STRICTURE, MALE, UNSPECIFIED SITE SNOMED Code(s): 52427806 (2) Hypospadias, penile Current Visit: Yes Status: Acute Code(s): Q54.1 - HYPOSPADIAS, PENILE SNOMED Code(s): 038318794 Plan: The penis was prepped and draped sterilely. Sellers sounds were used to dilate the urethral meatus up to 18-Finnish. It was then possible to successfully pass a 16-Finnish Govea catheter into the bladder, with clear return. The catheter may be removed were no longer medically needed. Please notify me if I can be of any further assistance.
[2020-10-07 18:17] LABS: Glucose,Whole Blood 179 mg/dL (75-99)
[2020-10-07 20:50] LABS: Glucose,Whole Blood 194 mg/dL (75-99)
[2020-10-07] MEDS: MELATONIN 5 MG TABLET PO SCH (21:08)
[2020-10-07] MEDS: ATORVASTATIN 80 MG TAB PO SCH (21:08)
[2020-10-08] MEDS: NOREPINEPHRINE 8 MG in SODIUM CHLORIDE 0.9% 250 ML IV SCH ×2 (00:17→11:57)
[2020-10-08] MEDS ORDERED: AZITHROMYCIN 500 MG in SODIUM CHLORIDE 0.9% 250 ML IVPB STA (00:18)
--- NOTE | 2020-10-08 00:26 | P.HPIM ---
History of Present Illness H&P Date: 10/07/20 Chief Complaint: FRANCIA Patient is a 68-year-old male with a past medical history of GIB - duodenal ulcer 2011, hypospadia and hx of smoking initially presented to [facility] due to worsening shortness of breath x1 week and was hypoxic in the ER. Patient was intubated and placed on mechanical ventilator and transferred to [facility] for further management. Patient was tested positive for COVID-19 pneumonia. Chest x-ray showed NG tube in position. There is increased infiltrate and atelectasis in the lung naik compared to exam [address] angiogram of the chest was done in the ER showed no evidence of pulmonary embolism. No aortic dissection or aneurysm. Extensive airspace consolidation and atelectasis in the lower lung naik. Laboratory data showed WBC 17.1, hemoglobin 16.2 and lymphocytes 0.6 ABG showed PCO2 29 and PO2 43 and pH 7.43 Sodium 132, potassium 4.9, BUN 23 and creatinine 0.89 lactic acid level is 2.2 on admission Ferritin 1306.7, LDH 1033, CRP 247.2 and pro calcitonin level is 5.27 Troponin 2.670 and 1.370 Review of Systems Complete review of systems could not be obtained from the patient. Past Medical History Additional Past Medical History / Comment(s): GIB - duodenal ulcer 2011, hypospadia History of Any Multi-Drug Resistant Organisms: None Reported Additional Past Surgical History / Comment(s): surgery to fix bleeding ulcer - 2011 Past Anesthesia/Blood Transfusion Reactions: No Reported Reaction Past Psychological History: No Psychological Hx Reported Smoking Status: Former smoker Additional Past Alcohol Use History / Comment(s): per stopped drinking 1994 Past Drug Use History: None Reported Medications and Allergies Home Medications Medication Instructions Recorded Confirmed Type Lansoprazole [Prevacid] 15 mg PO DAILY 10/06/20 10/06/20 History Allergies Allergy/AdvReac Type Severity Reaction Status Date / Time No Known Allergies Allergy Unverified 10/06/20 22:05 Physical Exam Vitals: Vital Signs Temp Pulse Resp BP Pulse Ox 10/07/20 12:00 98.1 F 112 H 20 91 L 10/07/20 11:57 98.1 F 112 H 20 98/63 91 L 10/07/20 11:45 111 H 20 91 L 12/29/20 11:30 114 H 20 91 L 12/29/20 11:15 114 H 21 91 L 10/07/20 11:00 117 H 20 91 L 10/07/20 10:45 115 H 20 91 L 10/07/20 10:30 114 H 20 92 L 10/07/20 10:15 111 H 20 91 L 10/07/20 10:00 72 20 93 L 10/07/20 09:45 110 H 20 92 L 10/07/20 09:30 106 H 20 81/57 91 L 10/07/20 09:15 104 H 25 H 81/57 89 L 10/07/20 09:00 104 H 24 90 L 10/07/20 08:45 105 H 31 H 81/57 88 L 10/07/20 08:30 102 H 20 89 L 10/07/20 08:15 101 H 62 H 99/67 95 10/07/20 08:00 104 H 31 H 93 L 10/07/20 07:45 106 H 34 H 93 L 10/07/20 07:30 105 H 33 H 93 L 10/07/20 07:15 106 H 31 H 85/69 93 L 10/07/20 07:00 105 H 28 H 93 L 10/07/20 06:45 110 H 26 H 83/67 93 L 10/07/20 06:30 106 H 24 92 L 10/07/20 06:15 110 H 21 83/67 91 L 10/07/20 06:00 111 H 26 H 91 L 10/07/20 05:45 112 H 26 H 82/63 91 L 10/07/20 05:30 112 H 24 90 L 10/07/20 05:15 112 H 26 H 94/66 89 L 10/07/20 05:00 113 H 28 H 88 L 10/07/20 04:45 116 H 28 H 102/75 88 L 10/07/20 04:30 117 H 28 H 86 L 10/07/20 04:15 115 H 30 H 94/67 87 L 10/07/20 04:00 99.0 F 112 H 27 H 88 L 10/07/20 03:45 112 H 23 105/75 88 L 10/07/20 03:30 112 H 22 87 L 10/07/20 03:15 109 H 23 105/76 88 L 10/07/20 03:00 108 H 21 90 L 10/07/20 02:45 108 H 24 93/62 88 L 10/07/20 02:30 111 H 26 H 87/68 88 L 10/07/20 02:15 113 H 22 87/68 89 L 10/07/20 02:00 120 H 23 76/58 87 L 10/07/20 01:51 120 H 21 72/57 88 L 10/07/20 00:47 120 H 36 H 90/67 83 L 10/07/20 00:10 118 H 40 H 126/87 85 L 10/06/20 23:30 125 H 30 H 134/88 89 L 10/06/20 23:00 31 H 148/99 10/06/20 22:51 124 H 148/99 10/06/20 22:45 126 H 22 148/99 91 L 10/06/20 22:00 128 H 28 H 157/118 85 L 10/06/20 21:45 97.8 F 134 H 16 156/114 85 L Intake and Output 10/06/20 10/07/20 10/07/20 22:59 06:59 14:59 Intake Total 1269.221 751.343 Output Total 0 0 Balance 1269.221 751.343 Intake: IV 1180 600 Sodium Chloride 0.9% 1, 180 600 000 ml @ 100 mls/hr IV . Q10H MAURISIO Rx#:[id number] Sodium Chloride 0.9% 1, 1000 000 ml @ 999 mls/hr IV . Q1H1M ONE Rx#:[id number] Intake, IV Titration 89.221 151.343 Amount Cisatracurium 200 mg In 10.71 Sodium Chloride 0.9% 180 ml @ 1 MCG/KG/MIN 4.2 mls /hr IV .Q24H MAURISIO Rx#: [id number] Norepinephrine 8 mg In 57.161 45.783 Sodium Chloride 0.9% 250 ml @ 0.05 MCG/KG/MIN 6. 773 mls/hr IV .Q24H MAURISIO Rx#:[id number] propofoL 1,000 mg In 1.295 Empty Bag 1 bag @ Titrate IV .Q0M ONE Rx#: [id number] propofoL 1,000 mg In 30.765 94.85 Empty Bag 1 bag @ Titrate IV .Q0M MAURISIO Rx#: [id number] Blood Product 0 Ffp Convalescent Plasma 0 Cpd Unit [id number] Output: Urine 0 0 Other: Voiding Method External Catheter External Catheter Weight 70 kg 70 kg 70 kg ABP, PAP, CO, CI - Last 8 Hours Arterial Blood Pressure 100/64 Arterial Blood Pressure 100/65 Arterial Blood Pressure 97/63 Arterial Blood Pressure 108/66 Arterial Blood Pressure 109/65 Arterial Blood Pressure 115/68 Arterial Blood Pressure 118/69 Arterial Blood Pressure 113/69 Arterial Blood Pressure 111/67 Arterial Blood Pressure 105/64 Arterial Blood Pressure 108/65 Arterial Blood Pressure 92/59 Arterial Blood Pressure 89/60 Arterial Blood Pressure 125/76 Arterial Blood Pressure 203/198 Arterial Blood Pressure 85/58 Arterial Blood Pressure 90/58 Arterial Blood Pressure 85/59 Arterial Blood Pressure 80/57 Arterial Blood Pressure 78/57 Arterial Blood Pressure 78/55 Arterial Blood Pressure 98/57 Arterial Blood Pressure 87/58 Arterial Blood Pressure 86/54 Arterial Blood Pressure 89/55 Arterial Blood Pressure 92/54 Arterial Blood Pressure 97/57 Arterial Blood Pressure 104/64 PHYSICAL EXAMINATION: Patient is on mechanical ventilator. sedated. HEENT: Normocephalic. Neck is supple. Pupils reactive. Nostrils clear. Oral cavity is moist. Ears reveal no drainage. Neck reveals no JVD, carotid bruits, or thyromegaly. CHEST EXAMINATION: Trachea is central. Symmetrical expansion. Coarse breath sounds and diminished air entry in the lung bases.. CARDIAC: Normal S1, S2 with no gallops. No murmurs ABDOMEN: Soft. Bowel sounds present, non distendedl. No organomegaly. No abdominal bruits. Extremities: reveal no edema. No clubbing or cyanosis Neurologically pt. is on ventilator. No gross focal deficits noted Skin: No rash or skin lesions. Psychiatric: could not be assesed Musculoskeletal: No joint swelling or deformity. Results CBC & Chem 7: 10/07/20 04:50 10/07/20 04:50 Labs: Abnormal Lab Results - Last 24 Hours (Table) 10/06/20 10/06/20 10/06/20 Range/Units 22:43 22:43 22:43 WBC 17.1 H (3.8-10.6) k/uL Plt Count (150-450) k/uL Neutrophils # 15.4 H (1.3-7.7) k/uL Lymphocytes # 0.6 L (1.0-4.8) k/uL Fibrinogen (200-500) mg/dL D-Dimer 1.24 H (<0.60) mg/L FEU ABG pCO2 (35-45) mmHg ABG pO2 (83-108) mmHg ABG HCO3 (21-25) mmol/L ABG O2 Saturation (94-97) % Sodium 132 L (137-145) mmol/L Carbon Dioxide (22-30) mmol/L BUN 23 H (9-20) mg/dL Glucose 233 H (74-99) mg/dL POC Glucose (mg/dL) (75-99) mg/dL Plasma Lactic Acid Regan (0.7-2.0) mmol/L Calcium (8.4-10.2) mg/dL Ferritin 1306.7 H (22.0-322.0) ng/mL Lactate Dehydrogenase 1033 H (313-618) U/L Troponin I (0.000-0.034) ng/mL C-Reactive Protein 247.2 H (<10.0) mg/L Total Protein 6.0 L (6.3-8.2) g/dL Albumin 3.0 L (3.5-5.0) g/dL Procalcitonin (0.02-0.09) ng/mL 10/06/20 10/06/20 10/07/20 Range/Units 22:43 22:43 00:28 WBC (3.8-10.6) k/uL Plt Count (150-450) k/uL Neutrophils # (1.3-7.7) k/uL Lymphocytes # (1.0-4.8) k/uL Fibrinogen (200-500) mg/dL D-Dimer (<0.60) mg/L FEU ABG pCO2 29 L (35-45) mmHg ABG pO2 43 L* (83-108) mmHg ABG HCO3 19 L (21-25) mmol/L ABG O2 Saturation 81.1 L (94-97) % Sodium (137-145) mmol/L Carbon Dioxide (22-30) mmol/L BUN (9-20) mg/dL Glucose (74-99) mg/dL POC Glucose (mg/dL) (75-99) mg/dL Plasma Lactic Acid Regan 2.2 H* (0.7-2.0) mmol/L Calcium (8.4-10.2) mg/dL Ferritin (22.0-322.0) ng/mL Lactate Dehydrogenase (313-618) U/L Troponin I (0.000-0.034) ng/mL C-Reactive Protein (<10.0) mg/L Total Protein (6.3-8.2) g/dL Albumin (3.5-5.0) g/dL Procalcitonin 5.27 H (0.02-0.09) ng/mL 10/07/20 10/07/20 10/07/20 Range/Units 01:23 03:10 04:50 WBC 19.6 H (3.8-10.6) k/uL Plt Count 459 H (150-450) k/uL Neutrophils # 18.1 H (1.3-7.7) k/uL Lymphocytes # 0.2 L (1.0-4.8) k/uL Fibrinogen (200-500) mg/dL D-Dimer (<0.60) mg/L FEU ABG pCO2 (35-45) mmHg ABG pO2 (83-108) mmHg ABG HCO3 (21-25) mmol/L ABG O2 Saturation (94-97) % Sodium (137-145) mmol/L Carbon Dioxide (22-30) mmol/L BUN (9-20) mg/dL Glucose (74-99) mg/dL POC Glucose (mg/dL) 182 H (75-99) mg/dL Plasma Lactic Acid Regan 2.1 H* (0.7-2.0) mmol/L Calcium (8.4-10.2) mg/dL Ferritin (22.0-322.0) ng/mL Lactate Dehydrogenase (313-618) U/L Troponin I (0.000-0.034) ng/mL C-Reactive Protein (<10.0) mg/L Total Protein (6.3-8.2) g/dL Albumin (3.5-5.0) g/dL Procalcitonin (0.02-0.09) ng/mL 10/07/20 10/07/20 10/07/20 Range/Units 04:50 04:50 04:59 WBC (3.8-10.6) k/uL Plt Count (150-450) k/uL Neutrophils # (1.3-7.7) k/uL Lymphocytes # (1.0-4.8) k/uL Fibrinogen 812 H (200-500) mg/dL D-Dimer 3.68 H (<0.60) mg/L FEU ABG pCO2 32 L (35-45) mmHg ABG pO2 50 L* (83-108) mmHg ABG HCO3 19 L (21-25) mmol/L ABG O2 Saturation 86.1 L (94-97) % Sodium 132 L (137-145) mmol/L Carbon Dioxide 19 L (22-30) mmol/L BUN 23 H (9-20) mg/dL Glucose 163 H (74-99) mg/dL POC Glucose (mg/dL) (75-99) mg/dL Plasma Lactic Acid Regan (0.7-2.0) mmol/L Calcium 8.1 L (8.4-10.2) mg/dL Ferritin 1497.7 H (22.0-322.0) ng/mL Lactate Dehydrogenase 891 H (313-618) U/L Troponin I (0.000-0.034) ng/mL C-Reactive Protein 252.7 H (<10.0) mg/L Total Protein (6.3-8.2) g/dL Albumin (3.5-5.0) g/dL Procalcitonin (0.02-0.09) ng/mL 10/07/20 10/07/20 10/07/20 Range/Units 06:09 08:00 08:12 WBC (3.8-10.6) k/uL Plt Count (150-450) k/uL Neutrophils # (1.3-7.7) k/uL Lymphocytes # (1.0-4.8) k/uL Fibrinogen (200-500) mg/dL D-Dimer (<0.60) mg/L FEU ABG pCO2 (35-45) mmHg ABG pO2 (83-108) mmHg ABG HCO3 (21-25) mmol/L ABG O2 Saturation (94-97) % Sodium (137-145) mmol/L Carbon Dioxide (22-30) mmol/L BUN (9-20) mg/dL Glucose (74-99) mg/dL POC Glucose (mg/dL) 160 H 148 H (75-99) mg/dL Plasma Lactic Acid Regan (0.7-2.0) mmol/L Calcium (8.4-10.2) mg/dL Ferritin (22.0-322.0) ng/mL Lactate Dehydrogenase (313-618) U/L Troponin I 2.670 H* (0.000-0.034) ng/mL C-Reactive Protein (<10.0) mg/L Total Protein (6.3-8.2) g/dL Albumin (3.5-5.0) g/dL Procalcitonin (0.02-0.09) ng/mL 10/07/20 10/07/20 Range/Units 08:28 11:38 WBC (3.8-10.6) k/uL Plt Count (150-450) k/uL Neutrophils # (1.3-7.7) k/uL Lymphocytes # (1.0-4.8) k/uL Fibrinogen (200-500) mg/dL D-Dimer (<0.60) mg/L FEU ABG pCO2 31 L (35-45) mmHg ABG pO2 49 L* (83-108) mmHg ABG HCO3 18 L (21-25) mmol/L ABG O2 Saturation 85.2 L (94-97) % Sodium (137-145) mmol/L Carbon Dioxide (22-30) mmol/L BUN (9-20) mg/dL Glucose (74-99) mg/dL POC Glucose (mg/dL) 174 H (75-99) mg/dL Plasma Lactic Acid Regan (0.7-2.0) mmol/L Calcium (8.4-10.2) mg/dL Ferritin (22.0-322.0) ng/mL Lactate Dehydrogenase (313-618) U/L Troponin I (0.000-0.034) ng/mL C-Reactive Protein (<10.0) mg/L Total Protein (6.3-8.2) g/dL Albumin (3.5-5.0) g/dL Procalcitonin (0.02-0.09) ng/mL Thrombosis Risk Factor Assmnt - Choose All That Apply Any of the Below Risk Factors Present?: Yes Each Risk Factor Represents 2 Points: Age 61-74 years Thrombosis Risk Factor Assessment Total Risk Factor Score: 2 Thrombosis Risk Factor Assessment Level: Low Risk Assessment and Plan Assessment: Acute hypoxic respiratory failure requiring mechanical ventilation Acute bilateral COVID-19 pneumonia Left lower lobe consolidation possible underlying bacterial infection. Sepsis secondary to above Elevated inflammatory markers and pro calcitonin level. Elevated troponin level possible non-ST elevated MD DVT prophylaxis patient is on Lovenox. Plan: Patient will be continued mechanical ventilator and pulmonary is on board. Started on dexamethasone and remdesivir. Patient was also given 2 units of convalescent plasma. Continue with vitamin supplementation. Patient will be started on antibiotics in the form of ceftriaxone and azithromycin for possible left lower lobe pneumonia/consolidation. Continue with pressor support and trend troponin levels. Cardiology was consulted. 2D echocardiogram was ordered. Further recommendations based on clinical course. Prognosis is guarded at this time.
[2020-10-08 00:29] LABS: Appearance,Urine Cloudy (Clear); Bilirubin,Urine Negative (Negative); Blood,Urine Negative (Negative); Color,Urine Yellow; Glucose,Urine (UA) Negative (Negative); Granular Casts,Urine 31 /lpf (0); Hyaline Casts,Urine 8 /lpf (0-2); Ketones,Urine Negative (Negative); Leukocyte Esterase,Urine Negative (Negative); Mucus,Urine Rare /hpf; Nitrite,Urine Negative (Negative); Protein,Urine 1+ (Negative); RBC,Urine 2 /hpf (0-5); Specific Gravity,Urine 1.035 (1.001-1.035); Squamous Epithelial Cell,Urine 2 /hpf (0-4); WBC,Urine 4 /hpf (0-5)
[2020-10-08] MEDS ORDERED: SODIUM CHLORIDE 0.9% 1,000 ML IV ONE (01:40)
[2020-10-08 01:49] LABS: Glucose,Whole Blood 178 mg/dL (75-99)
[2020-10-08] MEDS: INSULIN ASPART (NovoLOG) 100 UNIT/ML VIAL SQ SCH ×5 (01:51→18:14)
[2020-10-08 04:01] LABS: Basophils % (A) 0 %; Eosinophils % (A) 0 %; HCT 43.8 % (39.0-53.0); HGB 13.6 gm/dL (13.0-17.5); Hypochromasia Slight; Lymphocytes # (A) 0.5 k/uL (1.0-4.8); Lymphocytes % (A) 3 %; MCH 27.8 pg (25.0-35.0); MCHC 31.2 g/dL (31.0-37.0); MCV 89.3 fL (80.0-100.0); Mean Platelet Volume 7.6; Monocytes % (A) 6 %; Neutrophils # (A) 13.4 k/uL (1.3-7.7); Neutrophils % (A) 89 %; Platelet Count 513 k/uL (150-450); WBC 15.1 k/uL (3.8-10.6)
[2020-10-08 04:15] LABS: D-Dimer 1.21 mg/L FEU (<0.60)
[2020-10-08 04:34] LABS: Calcium 7.1 mg/dL (8.4-10.2); Potassium 4.5 mmol/L (3.5-5.1)
[2020-10-08 05:12] LABS: C Reactive Protein 368.2 mg/L (<10.0)
[2020-10-08 05:20] LABS: ABG Base Excess -8.7 mmol/L; ABG HCO3 20 mmol/L (21-25); ABG Oxygen Saturation 96.9 % (94-97); ABG PCO2 58 mmHg (35-45); ABG PO2 95 mmHg (83-108); ABG TCO2 22 mmol/L (19-24); Allen Test Performed? Yes
[2020-10-08] MEDS: ARTIFICIAL TEARS-HYPROMELLOSE DROPS 15 ML BTL BOTH EYES SCH ×5 (05:35→21:51)
[2020-10-08 05:36] LABS: ABG PH 7.15 (7.35-7.45)
[2020-10-08 07:21] LABS: ABG PO2 50 mmHg (83-108)
--- NOTE | 2020-10-08 07:36 | XR ---
EXAMINATION TYPE: XR chest 1V portable DATE OF EXAM: 10/08/2020 Comparison: 10/07/2020 Clinical History: 70-year-old male Tube placement Findings: ET tube satisfactory. NG tube courses below the diaphragm. Old healed right-sided rib fracture deform ities. Heart upper limits of normal in size. Mid and lower lung airspace opacity persists but is impr oving. Some asymmetric elevation right hemidiaphragm. Impression: Mid and lower lung airspace disease persists but is improving.
[2020-10-08 08:34] LABS: Glucose,Whole Blood 153 mg/dL (75-99)
[2020-10-08] MEDS: CISATRACURIUM 200 MG in SODIUM CHLORIDE 0.9% 180 ML IV SCH (08:41)
[2020-10-08] MEDS: ENOXAPARIN 40 MG/0.4 ML SYRINGE SQ SCH ×2 (09:11→21:51)
[2020-10-08] MEDS: ASCORBIC ACID 500 MG TAB PO SCH ×2 (09:12→21:51)
[2020-10-08] MEDS: DEXAMETHASONE SOD PHOSPHATE 10 MG/ML 1 ML VIAL IV SCH (09:12)
[2020-10-08] MEDS: ASPIRIN 81 MG PO SCH (09:12)
[2020-10-08] MEDS: ZINC SULFATE 220 MG CAP PO SCH (09:12)
[2020-10-08] MEDS: FAMOTIDINE 20 MG/2 ML VIAL IV SCH ×2 (09:12→21:51)
[2020-10-08] MEDS: CHLORHEXIDINE GLUCONATE 15 ML CUP MUCOUS MEM SCH ×2 (09:12→21:51)
[2020-10-08] MEDS: SODIUM CHLORIDE 0.9% 1,000 ML IV SCH ×2 (09:34→18:18)
[2020-10-08 10:08] LABS: Ferritin 1412.7 ng/mL (22.0-322.0)
[2020-10-08] MEDS ORDERED: REMDESIVIR 100 MG in SODIUM CHLORIDE 0.9% 250 ML IVPB SCH (10:09)
--- NOTE | 2020-10-08 10:38 | P.PN ---
Subjective Progress Note Date: 10/08/20 Principal diagnosis: CoVID 19 pneumonitis This is a 68-year-old male patient, essentially negative medical history, who came into [facility] with worsening shortness of breath and the patient was found to have bilateral pneumonia and further investigation confirmed the pr esence of COVID 19 related pneumonia. The patient was very much hypoxic in the emergency department and the patient was intubated and placed on a mechanical ventilator and following that the patient was transferred to [facility] for further investigation. At the time of the arrival, the patient was already intubated on a mechanical ventilator. A central line was placed and the left IJ and an art line was also established in the right radial artery. Following that, the patient was kept on a mechanical ventilator sedated with propofol and the current vent setting this morning included an assist-control of 20 and tidal volume of 450 FiO2 of 100% with a PEEP of 10. Morning blood gases showed a pH of 7.39 with a pCO2 of 31 and a pO2 of 49. Based on that, I increased the PEEP up to 14 and the tidal volume to 400s. The rate at 20 for now. The chest x-ray showing diffuse bilateral pulmonary infiltrates. A CT angiogram was in the emergency department and there was no evidence of any pulmonary embolism. The CAT scan also showed extensive airspace consolidation and atelectasis in the lower lung naik. A repeat chest x-ray was done today and it showed extensive airspace disease bilaterally especially in the lower lobes. The patient' the LDH was 891, C-reactive protein is 252, lactic acid was at 2.1. The patient has a known BUN and creatinine. white cell count is at 19.6. The patient has lymphopenia. D-dimer is at 3.68 . Overnight, the patient also had to placed on pressors and the patient is currently on norepinephrine infusion running at 0.1 mcg/kg per minute. The patient is currently receiving a bolus of normal saline 1 L and a maintenance fluid to be normal saline at the rate of 100 mL an hour. Enterofeeding will be also initiated. He had a low-grade fever. No nausea. No vomiting. No emesis. No diarrhea. No abdominal distention. No other comp laints otherwise. There was apparently an elevated troponin from the hospital and repeat troponin levels will be obtained. Echocardiogram will be obtained. The patient is seen today 10/08/2020 in follow-up in the intensive care unit. He remains intubated on the mechanical ventilator. Current settings assist- control 26, tidal volume 400, FiO2 80% and a PEEP of 18. Morning blood gases reveal a P O2 of 95, pCO2 56, pH 7.15. These gases were on 100% FiO2 and a respiratory rate of 20. He remains on to propofol at 50 mcg/kg/m. Norepinephrine at 12 mcg/m. 0.9 normal saline at 100 ML's per hour. He is on Nimbex at 1.5 mcg/kg/m He is being nourished with vital 1.2 at 75 mL every 4 hours with free water flushes. He remains on Lovenox and Decadron. He remains on vitamin supplements. He received a loading dose of Remdesivir. No further Remdesivir planned as he is mechanically ventilated. He is currently afebrile. Tachycardic. Sputum culture pending. Blood culture reveals no growth to date. This x-ray continues to revealed mid and lower lung airspace disease with slight improvement. Echocardiogram reveals moderate to severely impaired left ventricular systolic function with ejection fraction 30-35%. White count 15.1. Hemoglobin 13.6. Lymphocytes 0.5. D-dimer 1.21. Sodium 137. Potassium 4.5. Creatinine 1.09. Ferritin 1412. LDH 747. Troponin 1.02, 0.88. C-reactive protein 368. Objective - Vital Signs Vital signs: Vital Signs Temp 97.8 F 10/08/20 08:00 Pulse 100 10/08/20 09:30 Resp 26 H 10/08/20 09:30 BP 101/71 10/08/20 09:30 Pulse Ox 94 L 10/08/20 09:30 Intake & Output 10/07/20 10/08/20 10/08/20 18:59 06:59 18:59 Intake Total 2148.597 3372.113 258.45 Output Total 480 330 30 Balance 2191.574 8947.113 228.45 Weight 70 kg 71.5 kg Intake: IV 1200 1200 100 Sodium Chloride 0.9% 1, 1200 1200 100 000 ml @ 100 mls/hr IV . Q10H [facility] Rx#:[id number] Intake, IV Titration 653.636 5925.113 128.45 Amount Azithromycin 500 mg In 250 Sodium Chloride 0.9% 250 ml @ 250 mls/hr IVPB ONCE STA Rx#:[id number] Cisatracurium 200 mg In 10.71 126.84 36.75 Sodium Chloride 0.9% 180 ml @ 1 MCG/KG/MIN 4.2 mls /hr IV .Q24H [facility] Rx#: [id number] Norepinephrine 8 mg In 177.037 218.373 Sodium Chloride 0.9% 250 ml @ 0.05 MCG/KG/MIN 6. 773 mls/hr IV .Q24H [facility] Rx#:[id number] Sodium Chloride 0.9% 1, 1000 000 ml @ 999 mls/hr IV . Q1H1M ONE Rx#:[id number] cefTRIAXone 1 gm In 50 Sodium Chloride 0.9% 50 ml @ 100 mls/hr IVPB ONCE STA Rx#:[id number] propofoL 1,000 mg In 194.85 256.90 91.7 Empty Bag 1 bag @ Titrate IV .Q0M [facility] Rx#: [id number] Tube Feeding 180 30 Blood Product 566 Ffp Convalescent Plasma 259 Cpd Unit [id number] Ffp Convalescent Plasma 307 Cpd Unit [id number] Other 90 Output: Urine 480 330 30 Other: Voiding Method Indwelling Catheter Indwelling Catheter ABP, PAP, CO, CI - Last Documented Arterial Blood Pressure 117/69 - Exam Gen. appearance: a 70-year-old male patient, intubated on mechanical ventilator. Sedated on propofol. Paralyzed with Nimbex. The patient is synchronous with the mechanical ventilator. Head exam was generally normal. There was no scleral icterus or corneal arcus. Mucous membranes were moist. Neck was supple and without jugular venous distension, thyromegaly, or carotid bruits. Carotids were easily palpable bilaterally. There was no adenopathy. The patient has orogastric and orotracheal tube and both of them are in place. Lungs sounds are diminished and the patient has crackles in the lung bases bilaterally. Cardiac exam revealed the PMI to be normally situated and sized. The rhythm was regular and no extrasystoles were noted during several minutes of auscultation. The first and second heart sounds were normal and physiologic splitting of the second heart sound was noted. There were no murmurs, rubs, clicks, or gallops. Abdominal exam revealed normal bowel sounds. The abdomen was soft, non-tender, and without masses, organomegaly, or appreciable enlargement of the abdominal aorta. Examination of the extremities revealed easily palpable radial, femoral and pedal pulses. There was no cyanosis, clubbing or edema. Examination of the skin revealed no evidence of significant rashes, suspicious appearing nevi or other concerning lesions. Neurologically the patient is sedated, comfortable, withdraws to painful stimulation. Pupils are equal and reactive to light. No focal neurological deficits. - Labs CBC & Chem 7: 10/08/20 03:45 10/08/20 03:45 Labs: Abnormal Lab Results - Last 24 Hours (Table) 10/06/20 10/06/20 10/07/20 Range/Units 22:43 22:43 04:50 WBC (3.8-10.6) k/uL Plt Count (150-450) k/uL Neutrophils # (1.3-7.7) k/uL Lymphocytes # (1.0-4.8) k/uL Fibrinogen (200-500) mg/dL D-Dimer (<0.60) mg/L FEU ABG pH (7.35-7.45) ABG pCO2 (35-45) mmHg ABG pO2 (83-108) mmHg ABG HCO3 (21-25) mmol/L ABG O2 Saturation (94-97) % Chloride (98-107) mmol/L Carbon Dioxide (22-30) mmol/L BUN (9-20) mg/dL Glucose (74-99) mg/dL POC Glucose (mg/dL) (75-99) mg/dL Calcium (8.4-10.2) mg/dL Ferritin 1306.7 H 1497.7 H (22.0-322.0) ng/mL Lactate Dehydrogenase (313-618) U/L Troponin I (0.000-0.034) ng/mL C-Reactive Protein (<10.0) mg/L Procalcitonin 5.27 H (0.02-0.09) ng/mL Urine Protein (Negative) Hyaline Casts (0-2) /lpf Urine Mucus (None) /hpf 10/07/20 10/07/20 10/07/20 Range/Units 04:59 11:38 13:47 WBC (3.8-10.6) k/uL Plt Count (150-450) k/uL Neutrophils # (1.3-7.7) k/uL Lymphocytes # (1.0-4.8) k/uL Fibrinogen (200-500) mg/dL D-Dimer (<0.60) mg/L FEU ABG pH 7.22 L (7.35-7.45) ABG pCO2 51 H (35-45) mmHg ABG pO2 50 L* 77 L (83-108) mmHg ABG HCO3 (21-25) mmol/L ABG O2 Saturation 93.5 L (94-97) % Chloride (98-107) mmol/L Carbon Dioxide (22-30) mmol/L BUN (9-20) mg/dL Glucose (74-99) mg/dL POC Glucose (mg/dL) 174 H (75-99) mg/dL Calcium (8.4-10.2) mg/dL Ferritin (22.0-322.0) ng/mL Lactate Dehydrogenase (313-618) U/L Troponin I (0.000-0.034) ng/mL C-Reactive Protein (<10.0) mg/L Procalcitonin (0.02-0.09) ng/mL Urine Protein (Negative) Hyaline Casts (0-2) /lpf Urine Mucus (None) /hpf 10/07/20 10/07/20 10/07/20 Range/Units 16:30 18:15 20:49 WBC (3.8-10.6) k/uL Plt Count (150-450) k/uL Neutrophils # (1.3-7.7) k/uL Lymphocytes # (1.0-4.8) k/uL Fibrinogen (200-500) mg/dL D-Dimer (<0.60) mg/L FEU ABG pH (7.35-7.45) ABG pCO2 (35-45) mmHg ABG pO2 (83-108) mmHg ABG HCO3 (21-25) mmol/L ABG O2 Saturation (94-97) % Chloride (98-107) mmol/L Carbon Dioxide (22-30) mmol/L BUN (9-20) mg/dL Glucose (74-99) mg/dL POC Glucose (mg/dL) 179 H 194 H (75-99) mg/dL Calcium (8.4-10.2) mg/dL Ferritin (22.0-322.0) ng/mL Lactate Dehydrogenase (313-618) U/L Troponin I 1.370 H* (0.000-0.034) ng/mL C-Reactive Protein (<10.0) mg/L Procalcitonin (0.02-0.09) ng/mL Urine Protein (Negative) Hyaline Casts (0-2) /lpf Urine Mucus (None) /hpf 10/07/20 10/07/20 10/08/20 Range/Units 23:30 23:45 01:47 WBC (3.8-10.6) k/uL Plt Count (150-450) k/uL Neutrophils # (1.3-7.7) k/uL Lymphocytes # (1.0-4.8) k/uL Fibrinogen (200-500) mg/dL D-Dimer (<0.60) mg/L FEU ABG pH (7.35-7.45) ABG pCO2 (35-45) mmHg ABG pO2 (83-108) mmHg ABG HCO3 (21-25) mmol/L ABG O2 Saturation (94-97) % Chloride (98-107) mmol/L Carbon Dioxide (22-30) mmol/L BUN (9-20) mg/dL Glucose (74-99) mg/dL POC Glucose (mg/dL) 178 H (75-99) mg/dL Calcium (8.4-10.2) mg/dL Ferritin (22.0-322.0) ng/mL Lactate Dehydrogenase (313-618) U/L Troponin I 1.020 H* (0.000-0.034) ng/mL C-Reactive Protein (<10.0) mg/L Procalcitonin (0.02-0.09) ng/mL Urine Protein 1+ H (Negative) Hyaline Casts 8 H (0-2) /lpf Urine Mucus Rare H (None) /hpf 10/08/20 10/08/20 10/08/20 Range/Units 03:45 03:45 03:45 WBC 15.1 H (3.8-10.6) k/uL Plt Count 513 H (150-450) k/uL Neutrophils # 13.4 H (1.3-7.7) k/uL Lymphocytes # 0.5 L (1.0-4.8) k/uL Fibrinogen 978 H (200-500) mg/dL D-Dimer 1.21 H (<0.60) mg/L FEU ABG pH (7.35-7.45) ABG pCO2 (35-45) mmHg ABG pO2 (83-108) mmHg ABG HCO3 (21-25) mmol/L ABG O2 Saturation (94-97) % Chloride 112 H (98-107) mmol/L Carbon Dioxide 20 L (22-30) mmol/L BUN 33 H (9-20) mg/dL Glucose 190 H (74-99) mg/dL POC Glucose (mg/dL) (75-99) mg/dL Calcium 7.1 L (8.4-10.2) mg/dL Ferritin 1412.7 H (22.0-322.0) ng/mL Lactate Dehydrogenase 747 H (313-618) U/L Troponin I (0.000-0.034) ng/mL C-Reactive Protein 368.2 H (<10.0) mg/L Procalcitonin (0.02-0.09) ng/mL Urine Protein (Negative) Hyaline Casts (0-2) /lpf Urine Mucus (None) /hpf 10/08/20 10/08/20 10/08/20 Range/Units 03:45 05:32 08:32 WBC (3.8-10.6) k/uL Plt Count (150-450) k/uL Neutrophils # (1.3-7.7) k/uL Lymphocytes # (1.0-4.8) k/uL Fibrinogen (200-500) mg/dL D-Dimer (<0.60) mg/L FEU ABG pH 7.15 L* (7.35-7.45) ABG pCO2 58 H (35-45) mmHg ABG pO2 (83-108) mmHg ABG HCO3 20 L (21-25) mmol/L ABG O2 Saturation (94-97) % Chloride (98-107) mmol/L Carbon Dioxide (22-30) mmol/L BUN (9-20) mg/dL Glucose (74-99) mg/dL POC Glucose (mg/dL) 153 H (75-99) mg/dL Calcium (8.4-10.2) mg/dL Ferritin (22.0-322.0) ng/mL Lactate Dehydrogenase (313-618) U/L Troponin I 0.889 H* (0.000-0.034) ng/mL C-Reactive Protein (<10.0) mg/L Procalcitonin (0.02-0.09) ng/mL Urine Protein (Negative) Hyaline Casts (0-2) /lpf Urine Mucus (None) /hpf Microbiology - Last 24 Hours (Table) 10/07/20 19:50 Gram Stain - Preliminary Sputum Sputum Culture - Preliminary 10/06/20 23:45 Blood Culture - Preliminary Blood No Growth after 24 hours Assessment and Plan Assessment: 1 Acute bilateral Covid 19 related pneumonia with extensive consolidation and airspace disease bilaterally mainly in the mid and lower lung naik received loading dose of Remdesivir but no follow-up due to mechanical ventilation. Currently on Lovenox, Decadron, vitamin supplements. We'll calcitonin is elevated at 5.27. We will add Zosyn. 2 Acute hypoxic respiratory failure secondary to above, requiring intubation mechanical ventilation. Currently sedated on propofol 50 g kilogram per minute. Paralyzed with Nimbex at 1.5 mcg/kg/m 3 Lymphopenia secondary to above 4 Elevated inflammatory markers secondary to above 5 Suspect non-STEMI and the patient's troponin from [facility] was at 1.72. The EKG showed no ST segment elevation. There was poor R-wave progres iván and is sinus tachycardia. Some Q waves over the anterior leads. Repeat cardiac enzymes reveal a troponin of 1.02, 0.88. 6 Significant hypotension currently pressors for hemodynamic support 7 Cardiomyopathy with severely impaired left ventricular systolic function ejection fraction 30-35% 8 Hypospadia and a Govea catheter needs to be established Plan The patient was seen and evaluated by Dr. Dean Chest x-ray, ABGs and labs reviewed Add Zosyn No further Remdesivir Continue Lovenox, Decadron, vitamin supplement Titrate down the pressors as tolerated Titrate down the FiO2 then PEEP as tolerated Repeat chest x-ray, ABGs and labs in a.m. Prognosis is guarded and poor CODE STATUS should be addressed We will continue to follow and make further recommendations based on his clinical status Critical care time 38 minutes I, the cosigning physician, performed a history & physical examination of the patient. Lungs sounds bibasilar crackles. Maintaining good O2 saturations in the 90s on 80% FiO2 via the mechanical ventilator. I discussed the assessment and plan of care with my nurse practitioner, Miguelina Robertson. I attest to the above note as dictated by her.
[2020-10-08] MEDS ORDERED: FUROSEMIDE 10 MG/ML 4 ML VIAL IV STA (11:40)
[2020-10-08 11:44] LABS: Glucose,Whole Blood 176 mg/dL (75-99)
--- NOTE | 2020-10-08 15:45 | P.PN ---
Subjective Progress Note Date: 10/08/20 Principal diagnosis: Acute coronary syndrome This is a 70-year-old gentleman who requested to see in the intensive care unit for further evaluation and management of abnormal troponin. The patient currently is intubated and he is on mechanical ventilation and the history was taken from the chart as well as from the nurse taking care of the patient. Initially the patient presented to the emergency department at a local hospital with increasing shortness of breath for the last several days. No indication that he was experiencing any symptoms of chest pain or chest discomfort. He was found to be hypoxic and at that point the patient was intubated and placed on mechanical ventilation. He was then transferred to the intensive care unit here at [facility]. The troponin was checked at the other hospital and came in to be elevated without have any documentation of troponin in this hospital but we are in process of obtaining 3 sets of serial cardiac enzymes. The EKG here revealed sinus rhythm with a Q wave inferiorly and about half millimeter ST segment elevation inferiorly. The patient seems to be completed and infarct. No echocardiogram was done. Currently the patient is intubated and he is on mechanical ventilation and also he is hemodynamically unstable. He was seen by the placing judge and he was diagnosed with pneumonia related to COVID-19 in [facility]. He is septic. In terms of past medical history the patient does not have any history of diabetes or hypertension or dyslipidemia and no coronary artery disease or congestive heart failure or cardiac arrhythmia but at the same time the patient never seen by a physician for the last several years. The patient was seen today. He continues to be intubated on mechanical ventilation. He continues to be hemodynamically unstable and required vasopressors. The echo revealed severe cardiomyopathy. At this point we will continue the conservative medical approach including antiplatelet with aspirin as well as a statin. Hold any beta celina or LORENZO inhibitor in view of the hemodynamic instability required vasopressors. We'll continue following up with the patient. Objective - Vital Signs Vital signs: Vital Signs Temp 97.4 F L 10/08/20 12:00 Pulse 101 H 10/08/20 14:00 Resp 26 H 10/08/20 14:00 BP 111/75 10/08/20 14:00 Pulse Ox 95 10/08/20 14:00 Intake & Output 10/07/20 10/08/20 10/08/20 18:59 06:59 18:59 Intake Total 2148.597 3372.113 1222.073 Output Total 480 330 105 Balance 1919.835 4159.113 1117.073 Weight 70 kg 71.5 kg Intake: IV 1200 1200 600 Sodium Chloride 0.9% 1, 1200 1200 600 000 ml @ 100 mls/hr IV . Q10H [facility] Rx#:[id number] Intake, IV Titration 460.309 6470.113 562.073 Amount Azithromycin 500 mg In 250 Sodium Chloride 0.9% 250 ml @ 250 mls/hr IVPB ONCE STA Rx#:[id number] Cisatracurium 200 mg In 10.71 126.84 69.405 Sodium Chloride 0.9% 180 ml @ 1 MCG/KG/MIN 4.2 mls /hr IV .Q24H [facility] Rx#: [id number] Norepinephrine 8 mg In 177.037 218.373 311.368 Sodium Chloride 0.9% 250 ml @ 0.05 MCG/KG/MIN 6. 773 mls/hr IV .Q24H [facility] Rx#:[id number] Sodium Chloride 0.9% 1, 1000 000 ml @ 999 mls/hr IV . Q1H1M [facility] Rx#:[id number] cefTRIAXone 1 gm In 50 Sodium Chloride 0.9% 50 ml @ 100 mls/hr IVPB ONCE STA Rx#:[id number] propofoL 1,000 mg In 194.85 256.90 181.3 Empty Bag 1 bag @ Titrate IV .Q0M [facility] Rx#: [id number] Tube Feeding 180 60 Blood Product 566 Ffp Convalescent Plasma 259 Cpd Unit [id number] Ffp Convalescent Plasma 307 Cpd Unit [id number] Other 90 Output: Urine 480 330 105 Other: Voiding Method Indwelling Catheter Indwelling Catheter Indwelling Catheter ABP, PAP, CO, CI - Last Documented Arterial Blood Pressure 117/66 - Constitutional General appearance: Present: no acute distress - Labs CBC & Chem 7: 10/08/20 03:45 10/08/20 03:45 Labs: Abnormal Lab Results - Last 24 Hours (Table) 10/07/20 10/07/20 10/07/20 Range/Units 04:59 16:30 18:15 WBC (3.8-10.6) k/uL Plt Count (150-450) k/uL Neutrophils # (1.3-7.7) k/uL Lymphocytes # (1.0-4.8) k/uL Fibrinogen (200-500) mg/dL D-Dimer (<0.60) mg/L FEU ABG pH (7.35-7.45) ABG pCO2 (35-45) mmHg ABG pO2 50 L* (83-108) mmHg ABG HCO3 (21-25) mmol/L Chloride (98-107) mmol/L Carbon Dioxide (22-30) mmol/L BUN (9-20) mg/dL Glucose (74-99) mg/dL POC Glucose (mg/dL) 179 H (75-99) mg/dL Calcium (8.4-10.2) mg/dL Ferritin (22.0-322.0) ng/mL Lactate Dehydrogenase (313-618) U/L Troponin I 1.370 H* (0.000-0.034) ng/mL C-Reactive Protein (<10.0) mg/L Urine Protein (Negative) Hyaline Casts (0-2) /lpf Urine Mucus (None) /hpf 10/07/20 10/07/20 10/07/20 Range/Units 20:49 23:30 23:45 WBC (3.8-10.6) k/uL Plt Count (150-450) k/uL Neutrophils # (1.3-7.7) k/uL Lymphocytes # (1.0-4.8) k/uL Fibrinogen (200-500) mg/dL D-Dimer (<0.60) mg/L FEU ABG pH (7.35-7.45) ABG pCO2 (35-45) mmHg ABG pO2 (83-108) mmHg ABG HCO3 (21-25) mmol/L Chloride (98-107) mmol/L Carbon Dioxide (22-30) mmol/L BUN (9-20) mg/dL Glucose (74-99) mg/dL POC Glucose (mg/dL) 194 H (75-99) mg/dL Calcium (8.4-10.2) mg/dL Ferritin (22.0-322.0) ng/mL Lactate Dehydrogenase (313-618) U/L Troponin I 1.020 H* (0.000-0.034) ng/mL C-Reactive Protein (<10.0) mg/L Urine Protein 1+ H (Negative) Hyaline Casts 8 H (0-2) /lpf Urine Mucus Rare H (None) /hpf 10/08/20 10/08/20 10/08/20 Range/Units 01:47 03:45 03:45 WBC 15.1 H (3.8-10.6) k/uL Plt Count 513 H (150-450) k/uL Neutrophils # 13.4 H (1.3-7.7) k/uL Lymphocytes # 0.5 L (1.0-4.8) k/uL Fibrinogen (200-500) mg/dL D-Dimer (<0.60) mg/L FEU ABG pH (7.35-7.45) ABG pCO2 (35-45) mmHg ABG pO2 (83-108) mmHg ABG HCO3 (21-25) mmol/L Chloride 112 H (98-107) mmol/L Carbon Dioxide 20 L (22-30) mmol/L BUN 33 H (9-20) mg/dL Glucose 190 H (74-99) mg/dL POC Glucose (mg/dL) 178 H (75-99) mg/dL Calcium 7.1 L (8.4-10.2) mg/dL Ferritin 1412.7 H (22.0-322.0) ng/mL Lactate Dehydrogenase 747 H (313-618) U/L Troponin I (0.000-0.034) ng/mL C-Reactive Protein 368.2 H (<10.0) mg/L Urine Protein (Negative) Hyaline Casts (0-2) /lpf Urine Mucus (None) /hpf 10/08/20 10/08/20 10/08/20 Range/Units 03:45 03:45 05:32 WBC (3.8-10.6) k/uL Plt Count (150-450) k/uL Neutrophils # (1.3-7.7) k/uL Lymphocytes # (1.0-4.8) k/uL Fibrinogen 978 H (200-500) mg/dL D-Dimer 1.21 H (<0.60) mg/L FEU ABG pH 7.15 L* (7.35-7.45) ABG pCO2 58 H (35-45) mmHg ABG pO2 (83-108) mmHg ABG HCO3 20 L (21-25) mmol/L Chloride (98-107) mmol/L Carbon Dioxide (22-30) mmol/L BUN (9-20) mg/dL Glucose (74-99) mg/dL POC Glucose (mg/dL) (75-99) mg/dL Calcium (8.4-10.2) mg/dL Ferritin (22.0-322.0) ng/mL Lactate Dehydrogenase (313-618) U/L Troponin I 0.889 H* (0.000-0.034) ng/mL C-Reactive Protein (<10.0) mg/L Urine Protein (Negative) Hyaline Casts (0-2) /lpf Urine Mucus (None) /hpf 10/08/20 10/08/20 Range/Units 08:32 11:43 WBC (3.8-10.6) k/uL Plt Count (150-450) k/uL Neutrophils # (1.3-7.7) k/uL Lymphocytes # (1.0-4.8) k/uL Fibrinogen (200-500) mg/dL D-Dimer (<0.60) mg/L FEU ABG pH (7.35-7.45) ABG pCO2 (35-45) mmHg ABG pO2 (83-108) mmHg ABG HCO3 (21-25) mmol/L Chloride (98-107) mmol/L Carbon Dioxide (22-30) mmol/L BUN (9-20) mg/dL Glucose (74-99) mg/dL POC Glucose (mg/dL) 153 H 176 H (75-99) mg/dL Calcium (8.4-10.2) mg/dL Ferritin (22.0-322.0) ng/mL Lactate Dehydrogenase (313-618) U/L Troponin I (0.000-0.034) ng/mL C-Reactive Protein (<10.0) mg/L Urine Protein (Negative) Hyaline Casts (0-2) /lpf Urine Mucus (None) /hpf Microbiology - Last 24 Hours (Table) 10/07/20 19:50 Gram Stain - Preliminary Sputum Sputum Culture - Preliminary 10/06/20 23:45 Blood Culture - Preliminary Blood No Growth after 24 hours Assessment and Plan Assessment: Assessment #1 acute hypoxic respiratory failure #2 pneumonia related to COVID-19 infection #3 sepsis #4 acute coronary syndrome #5 multiple comorbid conditions Plan #1 continue aspirin as well as a statin #2 the echo was reviewed #3 follow-up with the patient
[2020-10-08] MEDS: PIPERACILLIN-TAZOBACTAM 3.375 GM in SODIUM CHLORIDE 0.9% 100 ML IVPB SCH (17:21)
[2020-10-08 17:40] LABS: Glucose,Whole Blood 181 mg/dL (75-99)
[2020-10-08] MEDS: MELATONIN 5 MG TABLET PO SCH (21:51)
[2020-10-08] MEDS: ATORVASTATIN 80 MG TAB PO SCH (21:51)
--- NOTE | 2020-10-08 22:19 | P.PN ---
Subjective Progress Note Date: 10/08/20 Principal diagnosis: Acute hypoxic respiratory failure requiring mechanical ventilation Acute bilateral COVID-19 pneumonia Patient is a 68-year-old male with a past medical history of GIB - duodenal ulcer 2011, hypospadia and hx of smoking initially presented to [facility] due to worsening shortness of breath x1 week and was hypoxic in the ER. Patient was intubated and placed on mechanical ventilator and transferred to [facility] for further management. Patient was tested positive for COVID-19 pneumonia. Chest x-ray showed NG tube in position. There is increased infiltrate and atelectasis in the lung naik compared to exam [address] angiogram of the chest was done in the ER showed no evidence of pulmonary embolism. No aortic dissection or aneurysm. Extensive airspace consolidation and atelectasis in the lower lung naik. Laboratory data showed WBC 17.1, hemoglobin 16.2 and lymphocytes 0.6 ABG showed PCO2 29 and PO2 43 and pH 7.43 Sodium 132, potassium 4.9, BUN 23 and creatinine 0.89 lactic acid level is 2.2 on admission Ferritin 1306.7, LDH 1033, CRP 247.2 and pro calcitonin level is 5.27 Troponin 2.670 and 1.370 10/08/2020 Patient is currently in the MICU and on mechanical ventilator. Currently FiO2 80% and PEEP of 18. Continue Lovenox, Decadron and remdesivir. Patient has been afebrile. Still tachycardic and tachypneic. Chest x-ray showed mid and lower lung airspace disease persists but improving. Patient was started on antibiotics in the form of Zosyn. 2D echocardiogram showed severe cardiomyopathy. Cardiology recommends medical management at this time with aspirin and statins. Cardiology and pulmonary is following. Current medications reviewed. Objective - Vital Signs Vital signs: Vital Signs Temp 97.4 F L 10/08/20 12:00 Pulse 101 H 10/08/20 14:00 Resp 26 H 10/08/20 14:00 BP 111/75 10/08/20 14:00 Pulse Ox 95 10/08/20 14:00 Intake & Output 10/07/20 10/08/20 10/08/20 18:59 06:59 18:59 Intake Total 2148.597 3372.113 1222.073 Output Total 480 330 105 Balance 8747.613 2321.113 1117.073 Weight 70 kg 71.5 kg Intake: IV 1200 1200 600 Sodium Chloride 0.9% 1, 1200 1200 600 000 ml @ 100 mls/hr IV . Q10H [facility] Rx#:[id number] Intake, IV Titration 754.718 1354.113 562.073 Amount Azithromycin 500 mg In 250 Sodium Chloride 0.9% 250 ml @ 250 mls/hr IVPB [facility] Rx#:[id number] Cisatracurium 200 mg In 10.71 126.84 69.405 Sodium Chloride 0.9% 180 ml @ 1 MCG/KG/MIN 4.2 mls /hr IV .Q24H [facility] Rx#: [id number] Norepinephrine 8 mg In 177.037 218.373 311.368 Sodium Chloride 0.9% 250 ml @ 0.05 MCG/KG/MIN 6. 773 mls/hr IV .Q24H [facility] Rx#:[id number] Sodium Chloride 0.9% 1, 1000 000 ml @ 999 mls/hr IV . Q1H1M ONE Rx#:[id number] cefTRIAXone 1 gm In 50 Sodium Chloride 0.9% 50 ml @ 100 mls/hr IVPB [facility]CE [facility] Rx#:[id number] propofoL 1,000 mg In 194.85 256.90 181.3 Empty Bag 1 bag @ Titrate IV .Q0M [facility] Rx#: [id number] Tube Feeding 180 60 Blood Product 566 Ffp Convalescent Plasma 259 Cpd Unit [id number] Ffp Convalescent Plasma 307 Cpd Unit [id number] Other 90 Output: Urine 480 330 105 Other: Voiding Method Indwelling Catheter Indwelling Catheter Indwelling Catheter ABP, PAP, CO, CI - Last Documented Arterial Blood Pressure 117/66 - Exam PHYSICAL EXAMINATION: Patient is on mechanical ventilator. sedated. HEENT: Normocephalic. Neck is supple. Pupils reactive. Nostrils clear. Oral cavity is moist. Ears reveal no drainage. Neck reveals no JVD, carotid bruits, or thyromegaly. CHEST EXAMINATION: Trachea is central. Symmetrical expansion. Coarse breath sounds and diminished air entry in the lung bases.. CARDIAC: Normal S1, S2 with no gallops. No murmurs ABDOMEN: Soft. Bowel sounds present, non distendedl. No organomegaly. No abdominal bruits. Extremities: reveal no edema. No clubbing or cyanosis Neurologically pt. is on ventilator. No gross focal deficits noted Skin: No rash or skin lesions. Psychiatric: could not be assesed Musculoskeletal: No joint swelling or deformity. - Labs CBC & Chem 7: 10/08/20 03:45 10/08/20 03:45 Labs: Abnormal Lab Results - Last 24 Hours (Table) 10/07/20 10/07/20 10/07/20 Range/Units 04:59 16:30 18:15 WBC (3.8-10.6) k/uL Plt Count (150-450) k/uL Neutrophils # (1.3-7.7) k/uL Lymphocytes # (1.0-4.8) k/uL Fibrinogen (200-500) mg/dL D-Dimer (<0.60) mg/L FEU ABG pH (7.35-7.45) ABG pCO2 (35-45) mmHg ABG pO2 50 L* (83-108) mmHg ABG HCO3 (21-25) mmol/L Chloride (98-107) mmol/L Carbon Dioxide (22-30) mmol/L BUN (9-20) mg/dL Glucose (74-99) mg/dL POC Glucose (mg/dL) 179 H (75-99) mg/dL Calcium (8.4-10.2) mg/dL Ferritin (22.0-322.0) ng/mL Lactate Dehydrogenase (313-618) U/L Troponin I 1.370 H* (0.000-0.034) ng/mL C-Reactive Protein (<10.0) mg/L Urine Protein (Negative) Hyaline Casts (0-2) /lpf Urine Mucus (None) /hpf 10/07/20 10/07/20 10/07/20 Range/Units 20:49 23:30 23:45 WBC (3.8-10.6) k/uL Plt Count (150-450) k/uL Neutrophils # (1.3-7.7) k/uL Lymphocytes # (1.0-4.8) k/uL Fibrinogen (200-500) mg/dL D-Dimer (<0.60) mg/L FEU ABG pH (7.35-7.45) ABG pCO2 (35-45) mmHg ABG pO2 (83-108) mmHg ABG HCO3 (21-25) mmol/L Chloride (98-107) mmol/L Carbon Dioxide (22-30) mmol/L BUN (9-20) mg/dL Glucose (74-99) mg/dL POC Glucose (mg/dL) 194 H (75-99) mg/dL Calcium (8.4-10.2) mg/dL Ferritin (22.0-322.0) ng/mL Lactate Dehydrogenase (313-618) U/L Troponin I 1.020 H* (0.000-0.034) ng/mL C-Reactive Protein (<10.0) mg/L Urine Protein 1+ H (Negative) Hyaline Casts 8 H (0-2) /lpf Urine Mucus Rare H (None) /hpf 10/08/20 10/08/20 10/08/20 Range/Units 01:47 03:45 03:45 WBC 15.1 H (3.8-10.6) k/uL Plt Count 513 H (150-450) k/uL Neutrophils # 13.4 H (1.3-7.7) k/uL Lymphocytes # 0.5 L (1.0-4.8) k/uL Fibrinogen (200-500) mg/dL D-Dimer (<0.60) mg/L FEU ABG pH (7.35-7.45) ABG pCO2 (35-45) mmHg ABG pO2 (83-108) mmHg ABG HCO3 (21-25) mmol/L Chloride 112 H (98-107) mmol/L Carbon Dioxide 20 L (22-30) mmol/L BUN 33 H (9-20) mg/dL Glucose 190 H (74-99) mg/dL POC Glucose (mg/dL) 178 H (75-99) mg/dL Calcium 7.1 L (8.4-10.2) mg/dL Ferritin 1412.7 H (22.0-322.0) ng/mL Lactate Dehydrogenase 747 H (313-618) U/L Troponin I (0.000-0.034) ng/mL C-Reactive Protein 368.2 H (<10.0) mg/L Urine Protein (Negative) Hyaline Casts (0-2) /lpf Urine Mucus (None) /hpf 10/08/20 10/08/20 10/08/20 Range/Units 03:45 03:45 05:32 WBC (3.8-10.6) k/uL Plt Count (150-450) k/uL Neutrophils # (1.3-7.7) k/uL Lymphocytes # (1.0-4.8) k/uL Fibrinogen 978 H (200-500) mg/dL D-Dimer 1.21 H (<0.60) mg/L FEU ABG pH 7.15 L* (7.35-7.45) ABG pCO2 58 H (35-45) mmHg ABG pO2 (83-108) mmHg ABG HCO3 20 L (21-25) mmol/L Chloride (98-107) mmol/L Carbon Dioxide (22-30) mmol/L BUN (9-20) mg/dL Glucose (74-99) mg/dL POC Glucose (mg/dL) (75-99) mg/dL Calcium (8.4-10.2) mg/dL Ferritin (22.0-322.0) ng/mL Lactate Dehydrogenase (313-618) U/L Troponin I 0.889 H* (0.000-0.034) ng/mL C-Reactive Protein (<10.0) mg/L Urine Protein (Negative) Hyaline Casts (0-2) /lpf Urine Mucus (None) /hpf 10/08/20 10/08/20 Range/Units 08:32 11:43 WBC (3.8-10.6) k/uL Plt Count (150-450) k/uL Neutrophils # (1.3-7.7) k/uL Lymphocytes # (1.0-4.8) k/uL Fibrinogen (200-500) mg/dL D-Dimer (<0.60) mg/L FEU ABG pH (7.35-7.45) ABG pCO2 (35-45) mmHg ABG pO2 (83-108) mmHg ABG HCO3 (21-25) mmol/L Chloride (98-107) mmol/L Carbon Dioxide (22-30) mmol/L BUN (9-20) mg/dL Glucose (74-99) mg/dL POC Glucose (mg/dL) 153 H 176 H (75-99) mg/dL Calcium (8.4-10.2) mg/dL Ferritin (22.0-322.0) ng/mL Lactate Dehydrogenase (313-618) U/L Troponin I (0.000-0.034) ng/mL C-Reactive Protein (<10.0) mg/L Urine Protein (Negative) Hyaline Casts (0-2) /lpf Urine Mucus (None) /hpf Microbiology - Last 24 Hours (Table) 10/07/20 19:50 Gram Stain - Preliminary Sputum Sputum Culture - Preliminary 10/06/20 23:45 Blood Culture - Preliminary Blood No Growth after 24 hours Assessment and Plan Assessment: Acute hypoxic respiratory failure requiring mechanical ventilation Acute bilateral COVID-19 pneumonia Left lower lobe consolidation possible underlying bacterial infection. Sepsis secondary to above Elevated inflammatory markers and pro calcitonin level. Elevated troponin level possible non-ST elevated ID DVT prophylaxis patient is on Lovenox. Plan: Patient will be continued mechanical ventilator and pulmonary is on board. Started on dexamethasone and remdesivir. Patient was also given 2 units of convalescent plasma. Continue with vitamin supplementation. Patient will be started on antibiotics in the form of ceftriaxone and azith romycin for possible left lower lobe pneumonia/consolidation. Continue with pressor support and trend troponin levels. Cardiology was consulted. 2D echocardiogram was ordered. Further recommendations based on clinical course. Prognosis is guarded at this time. Time with Patient: Greater than 30
[2020-10-08 23:51] LABS: Glucose,Whole Blood 173 mg/dL (75-99)
[2020-10-09] MEDS: NOREPINEPHRINE 8 MG in SODIUM CHLORIDE 0.9% 250 ML IV SCH (02:19)
[2020-10-09] MEDS ORDERED: SODIUM CHLORIDE 0.9% 1,000 ML IV ONE (02:20)
[2020-10-09 04:14] LABS: Basophils # (A) 0.1 k/uL (0-0.2); Basophils % (A) 1 %; Eosinophils % (A) 0 %; HCT 39.6 % (39.0-53.0); HGB 12.9 gm/dL (13.0-17.5); Lymphocytes # (A) 0.2 k/uL (1.0-4.8); Lymphocytes % (A) 2 %; MCH 28.5 pg (25.0-35.0); MCHC 32.5 g/dL (31.0-37.0); MCV 87.8 fL (80.0-100.0); Mean Platelet Volume 7.7; Monocytes # (A) 0.9 k/uL (0-1.0); Monocytes % (A) 7 %; Neutrophils # (A) 12.1 k/uL (1.3-7.7); Neutrophils % (A) 89 %; Platelet Count 446 k/uL (150-450); RBC 4.51 m/uL (4.30-5.90); RDW 14.1 % (11.5-15.5); WBC 13.6 k/uL (3.8-10.6)
[2020-10-09 04:28] LABS: D-Dimer 0.79 mg/L FEU (<0.60)
[2020-10-09 04:37] LABS: Calcium 6.6 mg/dL (8.4-10.2); Potassium 3.9 mmol/L (3.5-5.1)
[2020-10-09] MEDS: ARTIFICIAL TEARS-HYPROMELLOSE DROPS 15 ML BTL BOTH EYES SCH ×7 (04:42→23:57)
[2020-10-09] MEDS: SODIUM CHLORIDE 0.9% 1,000 ML IV SCH ×2 (04:43→15:58)
[2020-10-09 04:50] LABS: C Reactive Protein 202.1 mg/L (<10.0)
[2020-10-09] MEDS ORDERED: Potassium Replacement Protocol 1 EACH MISC MISCELLANE PRN (04:59)
[2020-10-09] MEDS ORDERED: POTASSIUM BICARBONATE/CIT AC 20 MEQ TABLET.EFF NG-TUBE SCH (05:00)
[2020-10-09 05:20] LABS: ABG Base Excess -10.1 mmol/L; ABG HCO3 18 mmol/L (21-25); ABG Oxygen Saturation 91.2 % (94-97); ABG PCO2 44 mmHg (35-45); ABG PH 7.22 (7.35-7.45); ABG PO2 63 mmHg (83-108); ABG TCO2 19 mmol/L (19-24); Allen Test Performed? Yes
[2020-10-09 05:37] LABS: Glucose,Whole Blood 175 mg/dL (75-99)
[2020-10-09] MEDS: CISATRACURIUM 200 MG in SODIUM CHLORIDE 0.9% 180 ML IV SCH (05:39)
[2020-10-09] MEDS: INSULIN ASPART (NovoLOG) 100 UNIT/ML VIAL SQ SCH ×4 (05:39→17:37)
--- NOTE | 2020-10-09 07:19 | P.PN ---
Subjective Progress Note Date: 10/09/20 Principal diagnosis: Acute coronary syndrome This is a 70-year-old gentleman who requested to see in the intensive care unit for further evaluation and management of abnormal troponin. The patient currently is intubated and he is on mechanical ventilation and the history was taken from the chart as well as from the nurse taking care of the patient. Initially the patient presented to the emergency department at a local hospital with increasing shortness of breath for the last several days. No indication that he was experiencing any symptoms of chest pain or chest discomfort. He was found to be hypoxic and at that point the patient was intubated and placed on mechanical ventilation. He was then transferred to the intensive care unit here at [facility]. The troponin was checked at the other hospital and came in to be elevated without have any documentation of troponin in this hospital but we are in process of obtaining 3 sets of serial cardiac enzymes. The EKG here revealed sinus rhythm with a Q wave inferiorly and about half millimeter ST segment elevation inferiorly. The patient seems to be completed and infarct. No echocardiogram was done. Currently the patient is intubated and he is on mechanical ventilation and also he is hemodynamically unstable. He was seen by the security guard supervisor and he was diagnosed with pneumonia related to COVID-19 in [facility]. He is septic. In terms of past medical history the patient does not have any history of diabetes or hypertension or dyslipidemia and no coronary artery disease or congestive heart failure or cardiac arrhythmia but at the same time the patient never seen by a physician for the last several years. The patient was seen today October [id number]. He continues to be intubated on mechanical ventilation. He continues to be hemodynamically unstable and required norepinephrine. The echo was reviewed yesterday and showed severe cardiomyopathy. Currently the patient is on aspirin and statin. Unfortunately we can't start the patient on any beta celina or LORENZO inhibitor in view of the low blood pressure required vasopressors. At this point we will continue the current medical regimen and follow-up with the patient. Objective - Vital Signs Vital signs: Vital Signs Temp 97.5 F L 10/09/20 04:00 Pulse 105 H 10/09/20 07:00 Resp 26 H 10/09/20 07:00 BP 119/70 10/09/20 07:00 Pulse Ox 91 L 10/09/20 07:00 Intake & Output 10/08/20 10/09/2010/09/20 18:59 06:59 18:59 Intake Total 6187.705 5528.798 100 Output Total 329 350 25 Balance 7157.765 2814.798 75 Weight 75.8 kg Intake: IV 1100 2100 100 Sodium Chloride 0.9% 1, 1100 1100 100 000 ml @ 100 mls/hr IV . Q10H [facility] Rx#:[id number] Sodium Chloride 0.9% 1, 1000 000 ml @ 999 mls/hr IV . Q1H1M ONE Rx#:[id number] Intake, IV Titration 794.211 682.798 Amount Cisatracurium 200 mg In 69.405 132.58 Sodium Chloride 0.9% 180 ml @ 1 MCG/KG/MIN 4.2 mls /hr IV .Q24H [facility] Rx#: [id number] Norepinephrine 8 mg In 377.356 170.918 Sodium Chloride 0.9% 250 ml @ 0.05 MCG/KG/MIN 6. 773 mls/hr IV .Q24H [facility] Rx#:[id number] Piperacillin-Tazobactam 3 100 100 .375 gm In Sodium Chloride 0.9% 100 ml @ 25 mls/hr IVPB Q8HR [facility] Rx# :[id number] propofoL 1,000 mg In 247.45 279.3 Empty Bag 1 bag @ Titrate IV .Q0M [facility] Rx#: [id number] Tube Feeding 90 480 Other 90 Output: Urine 329 350 25 Other: Voiding Method Indwelling Catheter Indwelling Catheter ABP, PAP, CO, CI - Last Documented Arterial Blood Pressure 128/71 - Constitutional General appearance: Present: no acute distress - Labs CBC & Chem 7: 10/09/20 04:00 10/09/20 04:00 Labs: Abnormal Lab Results - Last 24 Hours (Table) 10/07/20 10/08/20 10/08/20 Range/Units 04:59 03:45 08:32 WBC (3.8-10.6) k/uL Hgb (13.0-17.5) gm/dL Neutrophils # (1.3-7.7) k/uL Lymphocytes # (1.0-4.8) k/uL Fibrinogen (200-500) mg/dL D-Dimer (<0.60) mg/L FEU ABG pH (7.35-7.45) ABG pO2 50 L* (83-108) mmHg ABG HCO3 (21-25) mmol/L ABG O2 Saturation (94-97) % Chloride (98-107) mmol/L Carbon Dioxide (22-30) mmol/L BUN (9-20) mg/dL Creatinine (0.66-1.25) mg/dL Glucose (74-99) mg/dL POC Glucose (mg/dL) 153 H (75-99) mg/dL Calcium (8.4-10.2) mg/dL Ferritin 1412.7 H (22.0-322.0) ng/mL Lactate Dehydrogenase (313-618) U/L C-Reactive Protein (<10.0) mg/L 10/08/20 10/08/20 10/08/20 Range/Units 11:43 17:38 23:48 WBC (3.8-10.6) k/uL Hgb (13.0-17.5) gm/dL Neutrophils # (1.3-7.7) k/uL Lymphocytes # (1.0-4.8) k/uL Fibrinogen (200-500) mg/dL D-Dimer (<0.60) mg/L FEU ABG pH (7.35-7.45) ABG pO2 (83-108) mmHg ABG HCO3 (21-25) mmol/L ABG O2 Saturation (94-97) % Chloride (98-107) mmol/L Carbon Dioxide (22-30) mmol/L BUN (9-20) mg/dL Creatinine (0.66-1.25) mg/dL Glucose (74-99) mg/dL POC Glucose (mg/dL) 176 H 181 H 173 H (75-99) mg/dL Calcium (8.4-10.2) mg/dL Ferritin (22.0-322.0) ng/mL Lactate Dehydrogenase (313-618) U/L C-Reactive Protein (<10.0) mg/L 10/09/20 10/09/20 10/09/20 Range/Units 04:00 04:00 04:00 WBC 13.6 H (3.8-10.6) k/uL Hgb 12.9 L (13.0-17.5) gm/dL Neutrophils # 12.1 H (1.3-7.7) k/uL Lymphocytes # 0.2 L (1.0-4.8) k/uL Fibrinogen 791 H (200-500) mg/dL D-Dimer 0.79 H (<0.60) mg/L FEU ABG pH (7.35-7.45) ABG pO2 (83-108) mmHg ABG HCO3 (21-25) mmol/L ABG O2 Saturation (94-97) % Chloride 115 H (98-107) mmol/L Carbon Dioxide 18 L (22-30) mmol/L BUN 41 H (9-20) mg/dL Creatinine 1.42 H (0.66-1.25) mg/dL Glucose 168 H (74-99) mg/dL POC Glucose (mg/dL) (75-99) mg/dL Calcium 6.6 L (8.4-10.2) mg/dL Ferritin (22.0-322.0) ng/mL Lactate Dehydrogenase 814 H (313-618) U/L C-Reactive Protein 202.1 H (<10.0) mg/L 10/09/20 10/09/20 Range/Units 05:16 05:35 WBC (3.8-10.6) k/uL Hgb (13.0-17.5) gm/dL Neutrophils # (1.3-7.7) k/uL Lymphocytes # (1.0-4.8) k/uL Fibrinogen (200-500) mg/dL D-Dimer (<0.60) mg/L FEU ABG pH 7.22 L (7.35-7.45) ABG pO2 63 L (83-108) mmHg ABG HCO3 18 L (21-25) mmol/L ABG O2 Saturation 91.2 L (94-97) % Chloride (98-107) mmol/L Carbon Dioxide (22-30) mmol/L BUN (9-20) mg/dL Creatinine (0.66-1.25) mg/dL Glucose (74-99) mg/dL POC Glucose (mg/dL) 175 H (75-99) mg/dL Calcium (8.4-10.2) mg/dL Ferritin (22.0-322.0) ng/mL Lactate Dehydrogenase (313-618) U/L C-Reactive Protein (<10.0) mg/L Microbiology - Last 24 Hours (Table) 10/06/20 23:45 Blood Culture - Preliminary Blood No Growth after 48 hours 10/07/20 19:50 Gram Stain - Preliminary Sputum Sputum Culture - Preliminary Assessment and Plan Assessment: Assessment #1 acute hypoxic respiratory failure #2 pneumonia related to COVID-19 infection #3 severe cardiomyopathy #4 acute coronary syndrome #5 multiple comorbid conditions Plan #1 continue aspirin as well as a statin #2 follow-up with the patient
[2020-10-09] MEDS: ZINC SULFATE 220 MG CAP PO SCH (07:53)
[2020-10-09] MEDS: FAMOTIDINE 20 MG/2 ML VIAL IV SCH (07:53)
[2020-10-09] MEDS: PIPERACILLIN-TAZOBACTAM 3.375 GM in SODIUM CHLORIDE 0.9% 100 ML IVPB SCH ×4 (07:53→15:58)
[2020-10-09] MEDS: DEXAMETHASONE SOD PHOSPHATE 10 MG/ML 1 ML VIAL IV SCH (07:53)
[2020-10-09] MEDS: ASPIRIN 81 MG PO SCH (07:53)
[2020-10-09] MEDS: ASCORBIC ACID 500 MG TAB PO SCH ×2 (07:53→21:37)
[2020-10-09] MEDS: CHLORHEXIDINE GLUCONATE 15 ML CUP MUCOUS MEM SCH ×2 (07:53→21:36)
[2020-10-09] MEDS: ENOXAPARIN 40 MG/0.4 ML SYRINGE SQ SCH ×2 (07:54→21:37)
[2020-10-09] MEDS ORDERED: FUROSEMIDE 10 MG/ML 4 ML VIAL IV STA (08:10)
[2020-10-09] MEDS: SODIUM BICARBONATE TAB 650 MG TAB PO SCH ×2 (08:21→21:37)
--- NOTE | 2020-10-09 09:56 | XR ---
EXAMINATION TYPE: XR chest 1V portable DATE OF EXAM: 10/09/2020 COMPARISON: 10/09/2020 INDICATION: Tube placement TECHNIQUE: Single frontal view of the chest is obtained. FINDINGS: The heart size is normal. The pulmonary vasculature is normal. Bibasilar infiltrates are present. This is more consolidative at the left base. These findings are st able from comparison. Left central venous catheter tip is within the right atrium. Endotracheal tube tip is above aman. N asogastric tube transverses the thorax. IMPRESSION: 1. Stable bilateral lung infiltrates greater at the left base. 2. Stable lines and catheters discussed above.
[2020-10-09 10:07] LABS: Ferritin 1167.5 ng/mL (22.0-322.0)
--- NOTE | 2020-10-09 10:19 | P.PN ---
Subjective Progress Note Date: 10/09/20 Principal diagnosis: CoVID 19 pneumonitis This is a 68-year-old male patient, essentially negative medical history, who came into [facility] with worsening shortness of breath and the patient was found to have bilateral pneumonia and further investigation confirmed the pr esence of COVID 19 related pneumonia. The patient was very much hypoxic in the emergency department and the patient was intubated and placed on a mechanical ventilator and following that the patient was transferred to [facility] for further investigation. At the time of the arrival, the patient was already intubated on a mechanical ventilator. A central line was placed and the left IJ and an art line was also established in the right radial artery. Following that, the patient was kept on a mechanical ventilator sedated with propofol and the current vent setting this morning included an assist-control of 20 and tidal volume of 450 FiO2 of 100% with a PEEP of 10. Morning blood gases showed a pH of 7.39 with a pCO2 of 31 and a pO2 of 49. Based on that, I increased the PEEP up to 14 and the tidal volume to 400s. The rate at 20 for now. The chest x-ray showing diffuse bilateral pulmonary infiltrates. A CT angiogram was in the emergency department and there was no evidence of any pulmonary embolism. The CAT scan also showed extensive airspace consolidation and atelectasis in the lower lung naik. A repeat chest x-ray was done today and it showed extensive airspace disease bilaterally especially in the lower lobes. The patient' the LDH was 891, C-reactive protein is 252, lactic acid was at 2.1. The patient has a known BUN and creatinine. white cell count is at 19.6. The patient has lymphopenia. D-dimer is at 3.68 . Overnight, the patient also had to placed on pressors and the patient is currently on norepinephrine infusion running at 0.1 mcg/kg per minute. The patient is currently receiving a bolus of normal saline 1 L and a maintenance fluid to be normal saline at the rate of 100 mL an hour. Enterofeeding will be also initiated. He had a low-grade fever. No nausea. No vomiting. No emesis. No diarrhea. No abdominal distention. No other comp laints otherwise. There was apparently an elevated troponin from the hospital and repeat troponin levels will be obtained. Echocardiogram will be obtained. The patient is seen today 10/08/2020 in follow-up in the intensive care unit. He remains intubated on the mechanical ventilator. Current settings assist- control 26, tidal volume 400, FiO2 80% and a PEEP of 18. Morning blood gases reveal a P O2 of 95, pCO2 56, pH 7.15. These gases were on 100% FiO2 and a respiratory rate of 20. He remains on to propofol at 50 mcg/kg/m. Norepinephrine at 12 mcg/m. 0.9 normal saline at 100 ML's per hour. He is on Nimbex at 1.5 mcg/kg/m He is being nourished with vital 1.2 at 75 mL every 4 hours with free water flushes. He remains on Lovenox and Decadron. He remains on vitamin supplements. He received a loading dose of Remdesivir. No further Remdesivir planned as he is mechanically ventilated. He is currently afebrile. Tachycardic. Sputum culture pending. Blood culture reveals no growth to date. This x-ray continues to revealed mid and lower lung airspace disease with slight improvement. Echocardiogram reveals moderate to severely impaired left ventricular systolic function with ejection fraction 30-35%. White count 15.1. Hemoglobin 13.6. Lymphocytes 0.5. D-dimer 1.21. Sodium 137. Potassium 4.5. Creatinine 1.09. Ferritin 1412. LDH 747. Troponin 1.02, 0.88. C-reactive protein 368. The patient is seen today 10/09/2020 in follow-up in the intensive care unit. He remains intubated on mechanical ventilator currently on assist control rate of 26, tidal volume 400, FiO2 50% and a PEEP of 18. Blood gases reveal a P O2 of 63, pCO2 44, pH 7.22. Chest x-ray reveals stable bilateral lung infiltrates left greater than right. He is and Brovana 50 mcg/kg/m. Norepinephrine at 5.5 mg/m, 0.9 normal saline at 100 ML's per hour. His paralyzed with Nimbex at 2 mcg/kg/m. Being nourished with vital HP at 150 ML's every 4 hours. Blood and sputum cultures reveal no growth. He has received 2 units of convalescent plasma. White count 13.6. Hemoglobin 12.9. Lymphocytes 0.2. D-dimer 0.79. Sodium 138. Potassium 3.9. Bicarb 18. Creatinine 1.42. Glucose 168. Ferritin 1167. LDH 814. C-reactive protein 202. He remains on dexamethasone, Lovenox, Pepcid, melatonin, vitamin supplements. Objective - Vital Signs Vital signs: Vital Signs Temp 98.4 F 10/09/20 08:00 Pulse 105 H 10/09/20 09:00 Resp 26 H 10/09/20 09:00 BP 115/71 10/09/20 09:00 Pulse Ox 91 L 10/09/20 09:00 Intake & Output 10/08/20 10/09/20 10/09/20 18:59 06:59 18:59 Intake Total 5806.504 0233.798 127.812 Output Total 329 350 25 Balance 7136.724 7616.798 102.812 Weight 75.8 kg Intake: IV 1100 2100 100 Sodium Chloride 0.9% 1, 1100 1100 100 000 ml @ 100 mls/hr IV . Q10H [facility] Rx#:[id number] Sodium Chloride 0.9% 1, 1000 000 ml @ 999 mls/hr IV . Q1H1M [facility] Rx#:[id number] Intake, IV Titration 794.211 682.798 27.812 Amount Cisatracurium 200 mg In 69.405 132.58 Sodium Chloride 0.9% 180 ml @ 1 MCG/KG/MIN 4.2 mls /hr IV .Q24H [facility] Rx#: [id number] Norepinephrine 8 mg In 377.356 170.918 27.812 Sodium Chloride 0.9% 250 ml @ 0.05 MCG/KG/MIN 6. 773 mls/hr IV .Q24H [facility] Rx#:[id number] Piperacillin-Tazobactam 3 100 100 .375 gm In Sodium Chloride 0.9% 100 ml @ 25 mls/hr IVPB Q8HR [facility] Rx# :[id number] propofoL 1,000 mg In 247.45 279.3 Empty Bag 1 bag @ Titrate IV .Q0M [facility] Rx#: [id number] Tube Feeding 90 480 Other 90 Output: Urine 329 350 25 Other: Voiding Method Indwelling Catheter Indwelling Catheter Indwelling Catheter ABP, PAP, CO, CI - Last Documented Arterial Blood Pressure 134/75 - Exam Gen. appearance: a 70-year-old male patient, intubated on mechanical ventilator. Sedated on propofol. Paralyzed with Nimbex. The patient is synchronous with the mechanical ventilator. Head exam was generally normal. There was no scleral icterus or corneal arcus. Mucous membranes were moist. Neck was supple and without jugular venous distension, thyromegaly, or carotid bruits. Carotids were easily palpable bilaterally. There was no adenopathy. The patient has orogastric and orotracheal tube and both of them are in place. Lungs sounds are diminished and the patient has crackles in the lung bases bilaterally. Cardiac exam revealed the PMI to be normally situated and sized. The rhythm was regular and no extrasystoles were noted during several minutes of auscultation. The first and second heart sounds were normal and physiologic splitting of the second heart sound was noted. There were no murmurs, rubs, clicks, or gallops. Abdominal exam revealed normal bowel sounds. The abdomen was soft, non-tender, and without masses, organomegaly, or appreciable enlargement of the abdominal aorta. Examination of the extremities revealed easily palpable radial, femoral and pedal pulses. There was no cyanosis, clubbing or edema. Examination of the skin revealed no evidence of significant rashes, suspicious appearing nevi or other concerning lesions. Neurologically the patient is sedated, comfortable, withdraws to painful stimulation. Pupils are equal and reactive to light. No focal neurological deficits. - Labs CBC & Chem 7: 10/09/20 04:00 10/09/20 04:00 Labs: Abnormal Lab Results - Last 24 Hours (Table) 10/08/20 10/08/20 10/08/20 Range/Units 11:43 17:38 23:48 WBC (3.8-10.6) k/uL Hgb (13.0-17.5) gm/dL Neutrophils # (1.3-7.7) k/uL Lymphocytes # (1.0-4.8) k/uL Fibrinogen (200-500) mg/dL D-Dimer (<0.60) mg/L FEU ABG pH (7.35-7.45) ABG pO2 (83-108) mmHg ABG HCO3 (21-25) mmol/L ABG O2 Saturation (94-97) % Chloride (98-107) mmol/L Carbon Dioxide (22-30) mmol/L BUN (9-20) mg/dL Creatinine (0.66-1.25) mg/dL Glucose (74-99) mg/dL POC Glucose (mg/dL) 176 H 181 H 173 H (75-99) mg/dL Calcium (8.4-10.2) mg/dL Ferritin (22.0-322.0) ng/mL Lactate Dehydrogenase (313-618) U/L C-Reactive Protein (<10.0) mg/L 10/09/20 10/09/20 10/09/20 Range/Units 04:00 04:00 04:00 WBC 13.6 H (3.8-10.6) k/uL Hgb 12.9 L (13.0-17.5) gm/dL Neutrophils # 12.1 H (1.3-7.7) k/uL Lymphocytes # 0.2 L (1.0-4.8) k/uL Fibrinogen 791 H (200-500) mg/dL D-Dimer 0.79 H (<0.60) mg/L FEU ABG pH (7.35-7.45) ABG pO2 (83-108) mmHg ABG HCO3 (21-25) mmol/L ABG O2 Saturation (94-97) % Chloride 115 H (98-107) mmol/L Carbon Dioxide 18 L (22-30) mmol/L BUN 41 H (9-20) mg/dL Creatinine 1.42 H (0.66-1.25) mg/dL Glucose 168 H (74-99) mg/dL POC Glucose (mg/dL) (75-99) mg/dL Calcium 6.6 L (8.4-10.2) mg/dL Ferritin 1167.5 H (22.0-322.0) ng/mL Lactate Dehydrogenase 814 H (313-618) U/L C-Reactive Protein 202.1 H (<10.0) mg/L 10/09/20 10/09/20 Range/Units 05:16 05:35 WBC (3.8-10.6) k/uL Hgb (13.0-17.5) gm/dL Neutrophils # (1.3-7.7) k/uL Lymphocytes # (1.0-4.8) k/uL Fibrinogen (200-500) mg/dL D-Dimer (<0.60) mg/L FEU ABG pH 7.22 L (7.35-7.45) ABG pO2 63 L (83-108) mmHg ABG HCO3 18 L (21-25) mmol/L ABG O2 Saturation 91.2 L (94-97) % Chloride (98-107) mmol/L Carbon Dioxide (22-30) mmol/L BUN (9-20) mg/dL Creatinine (0.66-1.25) mg/dL Glucose (74-99) mg/dL POC Glucose (mg/dL) 175 H (75-99) mg/dL Calcium (8.4-10.2) mg/dL Ferritin (22.0-322.0) ng/mL Lactate Dehydrogenase (313-618) U/L C-Reactive Protein (<10.0) mg/L Microbiology - Last 24 Hours (Table) 10/06/20 23:45 Blood Culture - Preliminary Blood No Growth after 48 hours Assessment and Plan Assessment: 1 Acute bilateral Covid 19 related pneumonia with extensive consolidation and airspace disease bilaterally mainly in the mid and lower lung naik received loading dose of Remdesivir but no follow-up due to mechanical ventilation. Currently on Lovenox, Decadron, vitamin supplements. 2 Acute hypoxic respiratory failure secondary to above, requiring intubation mechanical ventilation. Currently sedated on propofol 50 g kilogram per minute. Paralyzed with Nimbex at 2 mcg/kg/m 3 Lymphopenia secondary to above 4 Elevated inflammatory markers secondary to above 5 Suspect non-STEMI and the patient's troponin from [facility] was at 1.72. The EKG showed no ST segment elevation. There was poor R-wave progression and is sinus tachycardia. Some Q waves over the anterior leads. Repeat cardiac enzymes reveal a troponin of 1.02, 0.88. 6 Significant hypotension currently on pressors for hemodynamic support 7 Cardiomyopathy with severely impaired left ventricular systolic function ejection fraction 30-35% 8 Hypospadia and a Govea catheter needs to be established Plan The patient was seen and evaluated by Dr. Dean Chest x-ray, ABGs and labs reviewed We'll give Lasix 40 mg IVP 1 Decreased 0.9 normal saline to KVO Add sodium bicarbonate tablets 650 mg twice a day Continue Lovenox, Decadron, melatonin, vitamin supplement Titrate down the pressors as tolerated Titrate down the PEEP as tolerated Repeat chest x-ray, ABGs and labs in a.m. Prognosis is guarded and poor CODE STATUS should be addressed We will continue to follow and make further recommendations based on his clinical status Critical care time 36 minutes I, the cosigning physician, performed a history & physical examination of the patient. Lungs sounds bibasilar crackles. Maintaining good O2 saturations in the 90s on 50% FiO2 via the mechanical ventilator. I discussed the assessment and plan of care with my nurse practitioner, Miguelina Robertson. I attest to the above note as dictated by her.
[2020-10-09 11:53] LABS: Glucose,Whole Blood 144 mg/dL (75-99)
--- NOTE | 2020-10-09 14:25 | CDI ---
Documentation Clarification Form Date: 10/09/2020 01:44:33 PM From: Lima Cuellar RN CCDS Admit Date: 10/06/2020 10:59:00 PM Patient Name: Shaquille Adam Visit Number: [id number] Discharge Date: ATTENTION: The Clinical Documentation Specialists (CDI) and [employer] Coding Staff appreciate your assistance in clarifying documentation. Please respond to the clarification below the line at the bottom and electronically sign. The CDI & [employer] Coding staff will review the response and follow-up if needed. Please note: Queries are made part of the Legal Health Record. If you have any questions, please contact the author of this message via ITS. Dr. David Quezada The Echo revealed severe cardiomyopathy Is documented in Cardiology progress notes 10/08 and 10/09 History/Risk Factors: 70-year-old male presents to the ED as a transfer from [facility] for COVID 19 and respiratory failure. Medical History: smoking; GIB with duodenal ulcer Clinical Indicators: Cardiology Progress Note 10/08 & 10/09: The Echo revealed severe cardiomyopathy. At this point we will continue the conservative medical approach including antiplatelet with aspirin as well as a statin. Hold any beta marjan or CHARLES inhibitor in view of the hemodynamic instability required vasopressors. VS/Pulse OX 10/07: B/P: 83/67; HR: 110; RR: 26; SpO2 93% Mechanical Ventilation. Echocardiogram Results 10/07: Borderline concentric left ventricular hypertrophy; Left ventricular systolic function is moderate-severely impaired with EF between 30 - 35%. Right ventricle is mildly enlarged. Mild aortic valve sclerosis, mild Chest X Ray 10/07: Bibasilar infiltrates. Left lower lobe consolidation is worsening. Treatment: 10/08 Lasix 20mg Iv x1; 10/09 Lasix 40mg Iv x1; Hold any Beta Marjan or Charles in view of hemodynamic instability per cardiology note 10/08 & 10/09 In your professional opinion, can you please clarify the acuity and type of CHF if known? Acute Systolic Heart Failure Acute on Chronic Systolic Heart Failure CHF ruled out Unable to Determine Other, please specify (Last Revision: January 2018) MTDD
[2020-10-09 17:13] LABS: Glucose,Whole Blood 196 mg/dL (75-99)
[2020-10-09] MEDS: MELATONIN 5 MG TABLET PO SCH (21:37)
[2020-10-09] MEDS: ATORVASTATIN 80 MG TAB PO SCH (21:37)
[2020-10-10 00:20] LABS: Glucose,Whole Blood 118 mg/dL (75-99)
[2020-10-10] MEDS: INSULIN ASPART (NovoLOG) 100 UNIT/ML VIAL SQ SCH ×4 (00:43→18:31)
[2020-10-10] MEDS: PIPERACILLIN-TAZOBACTAM 3.375 GM in SODIUM CHLORIDE 0.9% 100 ML IVPB SCH ×3 (00:44→15:46)
[2020-10-10 05:11] LABS: Basophils # (A) 0.1 k/uL (0-0.2); Basophils % (A) 1 %; Eosinophils # (A) 0.1 k/uL (0-0.7); Eosinophils % (A) 0 %; HGB 13.8 gm/dL (13.0-17.5); Hypochromasia Slight; Lymphocytes # (A) 0.2 k/uL (1.0-4.8); Lymphocytes % (A) 1 %; MCH 28.6 pg (25.0-35.0); MCHC 32.1 g/dL (31.0-37.0); MCV 89.1 fL (80.0-100.0); Mean Platelet Volume 7.4; Monocytes % (A) 7 %; Neutrophils # (A) 14.2 k/uL (1.3-7.7); Neutrophils % (A) 90 %; Platelet Count 536 k/uL (150-450); RBC 4.82 m/uL (4.30-5.90); RDW 14.5 % (11.5-15.5); WBC 15.9 k/uL (3.8-10.6)
[2020-10-10 05:28] LABS: D-Dimer 1.03 mg/L FEU (<0.60)
[2020-10-10 05:33] LABS: ABG Base Excess -10.9 mmol/L; ABG HCO3 18 mmol/L (21-25); ABG Oxygen Saturation 93.8 % (94-97); ABG PCO2 52 mmHg (35-45); ABG PO2 71 mmHg (83-108); ABG TCO2 20 mmol/L (19-24); Allen Test Performed? Yes
[2020-10-10 05:37] LABS: ABG PH 7.15 (7.35-7.45)
[2020-10-10 05:38] LABS: Albumin 2.5 g/dL (3.5-5.0); Calcium 6.9 mg/dL (8.4-10.2); Potassium 4.2 mmol/L (3.5-5.1); Total Bilirubin 0.4 mg/dL (0.2-1.3); Total Protein 5.2 g/dL (6.3-8.2)
[2020-10-10 05:54] LABS: Glucose,Whole Blood 125 mg/dL (75-99)
[2020-10-10] MEDS: DEXAMETHASONE SOD PHOSPHATE 10 MG/ML 1 ML VIAL IV SCH (06:35)
[2020-10-10] MEDS: ARTIFICIAL TEARS-HYPROMELLOSE DROPS 15 ML BTL BOTH EYES SCH ×5 (06:35→20:37)
--- NOTE | 2020-10-10 06:48 | XR ---
EXAMINATION TYPE: XR chest 1V portable DATE OF EXAM: 10/10/2020 CLINICAL HISTORY: Difficulty breathing progress study. TECHNIQUE: Single AP portable upright view of the chest is obtained. COMPARISON: Chest x-ray from one day earlier and older studies FINDINGS: Stable endotracheal tube, orogastric tube, and left internal jugular central venous cathet er. Old right lateral mid rib fractures redemonstrated. Cardiac silhouette size is stable and upper l imits of normal. Reticulonodular opacities in the mid to lower lungs bilaterally remain present. Uppe r lungs remain clear. Underlying scoliotic curvature in the lumbar spine redemonstrated. IMPRESSION: Bibasilar reticulonodular infiltrates and/or edema redemonstrated. No significant change from one day earlier.
[2020-10-10] MEDS: ZINC SULFATE 220 MG CAP PO SCH (08:14)
[2020-10-10] MEDS: ASPIRIN 81 MG PO SCH (08:14)
[2020-10-10] MEDS: SODIUM BICARBONATE TAB 650 MG TAB PO SCH ×4 (08:14→21:35)
[2020-10-10] MEDS: ASCORBIC ACID 500 MG TAB PO SCH ×2 (08:14→21:35)
[2020-10-10] MEDS: CHLORHEXIDINE GLUCONATE 15 ML CUP MUCOUS MEM SCH ×2 (08:14→21:35)
[2020-10-10] MEDS: ENOXAPARIN 40 MG/0.4 ML SYRINGE SQ SCH ×2 (08:14→21:35)
[2020-10-10] MEDS: FAMOTIDINE 20 MG/2 ML VIAL IV SCH (08:15)
[2020-10-10 09:41] LABS: Ferritin 1300.5 ng/mL (22.0-322.0)
[2020-10-10 10:11] VITALS: BMI 25.7
[2020-10-10 10:12] LABS: Glucose,Whole Blood 118 mg/dL (75-99)
[2020-10-10] MEDS: CISATRACURIUM 200 MG in SODIUM CHLORIDE 0.9% 180 ML IV SCH (10:47)
--- NOTE | 2020-10-10 10:47 | P.PN ---
Subjective Progress Note Date: 10/10/20 Principal diagnosis: Acute coronary syndrome This is a 70-year-old gentleman who requested to see in the intensive care unit for further evaluation and management of abnormal troponin. The patient currently is intubated and he is on mechanical ventilation and the history was taken from the chart as well as from the nurse taking care of the patient. Initially the patient presented to the emergency department at a local hospital with increasing shortness of breath for the last several days. No indication that he was experiencing any symptoms of chest pain or chest discomfort. He was found to be hypoxic and at that point the patient was intubated and placed on mechanical ventilation. He was then transferred to the intensive care unit here at [facility]. The troponin was checked at the other hospital and came in to be elevated without have any documentation of troponin in this hospital but we are in process of obtaining 3 sets of serial cardiac enzymes. The EKG here revealed sinus rhythm with a Q wave inferiorly and about half millimeter ST segment elevation inferiorly. The patient seems to be completed and infarct. No echocardiogram was done. Currently the patient is intubated and he is on mechanical ventilation and also he is hemodynamically unstable. He was seen by the cut out machine operator and he was diagnosed with pneumonia related to COVID-19 in [facility]. He is septic. In terms of past medical history the patient does not have any history of diabetes or hypertension or dyslipidemia and no coronary artery disease or congestive heart failure or cardiac arrhythmia but at the same time the patient never seen by a physician for the last several years. Today October 102020. The patient continues to be intubated and on mechanical ventilation. He is off vasopressor. The pressure continues to be marginal. The urine output is marginal as well. He is on aspirin as well as Lovenox as well as a statin. He is a slightly tachycardic and we will consider start him on a small dose of beta celina with metoprolol at 12.5 mg by mouth twice a day Next 24 hours was a pressure is a slightly better. Objective - Vital Signs Vital signs: Vital Signs Temp 97.9 F 10/10/20 04:00 Pulse 115 H 10/10/20 07:00 Resp 26 H 10/10/20 07:00 BP 104/71 10/10/20 07:00 Pulse Ox 93 L 10/10/20 07:00 Intake & Output 10/09/20 10/10/20 10/10/20 18:59 06:59 18:59 Intake Total 9322.671 3869.172 131.714 Output Total 523 943 15 Balance 517.329 436.172 116.714 Weight 75.8 kg 76.9 kg 76.9 kg Intake: IV 395 433 23 Beatriz Flush 33 3 Piperacillin-Tazobactam 3 200 .375 gm In Sodium Chloride 0.9% 100 ml @ 25 mls/hr IVPB Q8HR [facility] Rx# :[id number] Sodium Chloride 0.9% 1, 395 200 20 000 ml @ 20 mls/hr IV . Q24H [facility] Rx#:[id number] Intake, IV Titration 555.329 266.172 108.714 Amount Cisatracurium 200 mg In 126.84 Sodium Chloride 0.9% 180 ml @ 1 MCG/KG/MIN 4.2 mls /hr IV .Q24H [facility] Rx#: [id number] Norepinephrine 8 mg In 103.079 72.132 8.714 Sodium Chloride 0.9% 250 ml @ 0.05 MCG/KG/MIN 6. 773 mls/hr IV .Q24H [facility] Rx#:[id number] Piperacillin-Tazobactam 3 200 .375 gm In Sodium Chloride 0.9% 100 ml @ 25 mls/hr IVPB Q8HR [facility] Rx# :[id number] propofoL 1,000 mg In 252.25 67.2 100 Empty Bag 1 bag @ Titrate IV .Q0M [facility] Rx#: [id number] Tube Feeding 90 600 Other 80 Output: Urine 523 243 15 Stool 700 Other: Voiding Method Indwelling Catheter Indwelling Catheter # Bowel Movements 1 ABP, PAP, CO, CI - Last Documented Arterial Blood Pressure 129/73 - Constitutional General appearance: Present: no acute distress - Labs CBC & Chem 7: 10/10/20 05:00 10/10/20 05:00 Labs: Abnormal Lab Results - Last 24 Hours (Table) 10/09/20 10/09/20 10/10/20 Range/Units 11:52 17:11 00:18 WBC (3.8-10.6) k/uL Plt Count (150-450) k/uL Neutrophils # (1.3-7.7) k/uL Lymphocytes # (1.0-4.8) k/uL Fibrinogen (200-500) mg/dL D-Dimer (<0.60) mg/L FEU ABG pH (7.35-7.45) ABG pCO2 (35-45) mmHg ABG pO2 (83-108) mmHg ABG HCO3 (21-25) mmol/L ABG O2 Saturation (94-97) % Chloride (98-107) mmol/L Carbon Dioxide (22-30) mmol/L BUN (9-20) mg/dL Creatinine (0.66-1.25) mg/dL Glucose (74-99) mg/dL POC Glucose (mg/dL) 144 H 196 H 118 H (75-99) mg/dL Calcium (8.4-10.2) mg/dL Ferritin (22.0-322.0) ng/mL C-Reactive Protein (<10.0) mg/L Total Protein (6.3-8.2) g/dL Albumin (3.5-5.0) g/dL 10/10/20 10/10/20 10/10/20 Range/Units 05:00 05:00 05:00 WBC 15.9 H (3.8-10.6) k/uL Plt Count 536 H (150-450) k/uL Neutrophils # 14.2 H (1.3-7.7) k/uL Lymphocytes # 0.2 L (1.0-4.8) k/uL Fibrinogen 1009 H (200-500) mg/dL D-Dimer 1.03 H (<0.60) mg/L FEU ABG pH (7.35-7.45) ABG pCO2 (35-45) mmHg ABG pO2 (83-108) mmHg ABG HCO3 (21-25) mmol/L ABG O2 Saturation (94-97) % Chloride 113 H (98-107) mmol/L Carbon Dioxide 18 L (22-30) mmol/L BUN 51 H (9-20) mg/dL Creatinine 1.65 H (0.66-1.25) mg/dL Glucose 140 H (74-99) mg/dL POC Glucose (mg/dL) (75-99) mg/dL Calcium 6.9 L (8.4-10.2) mg/dL Ferritin 1300.5 H (22.0-322.0) ng/mL C-Reactive Protein 157.0 H (<10.0) mg/L Total Protein 5.2 L (6.3-8.2) g/dL Albumin 2.5 L (3.5-5.0) g/dL 10/10/20 10/10/20 10/10/20 Range/Units 05:28 05:52 10:11 WBC (3.8-10.6) k/uL Plt Count (150-450) k/uL Neutrophils # (1.3-7.7) k/uL Lymphocytes # (1.0-4.8) k/uL Fibrinogen (200-500) mg/dL D-Dimer (<0.60) mg/L FEU ABG pH 7.15 L* (7.35-7.45) ABG pCO2 52 H (35-45) mmHg ABG pO2 71 L (83-108) mmHg ABG HCO3 18 L (21-25) mmol/L ABG O2 Saturation 93.8 L (94-97) % Chloride (98-107) mmol/L Carbon Dioxide (22-30) mmol/L BUN (9-20) mg/dL Creatinine (0.66-1.25) mg/dL Glucose (74-99) mg/dL POC Glucose (mg/dL) 125 H 118 H (75-99) mg/dL Calcium (8.4-10.2) mg/dL Ferritin (22.0-322.0) ng/mL C-Reactive Protein (<10.0) mg/L Total Protein (6.3-8.2) g/dL Albumin (3.5-5.0) g/dL Microbiology - Last 24 Hours (Table) 10/07/20 19:50 Gram Stain - Final Sputum Sputum Culture - Final 10/06/20 23:45 Blood Culture - Preliminary Blood No Growth after 72 hours Assessment and Plan Assessment: Assessment #1 acute hypoxic respiratory failure #2 pneumonia related to COVID-19 infection #3 severe cardiomyopathy #4 acute coronary syndrome #5 multiple comorbid conditions Plan #1 continue aspirin as well as a statin #2 consider starting the patient on small dose of metoprolol in the next 24 hours #3 follow-up with the patient
--- NOTE | 2020-10-10 11:08 | P.PN ---
Subjective Progress Note Date: 10/10/20 Principal diagnosis: CoVID 19 pneumonitis This is a 68-year-old male patient, essentially negative medical history, who came into [facility] with worsening shortness of breath and the patient was found to have bilateral pneumonia and further investigation confirmed the pr esence of COVID 19 related pneumonia. The patient was very much hypoxic in the emergency department and the patient was intubated and placed on a mechanical ventilator and following that the patient was transferred to [facility] for further investigation. At the time of the arrival, the patient was already intubated on a mechanical ventilator. A central line was placed and the left IJ and an art line was also established in the right radial artery. Following that, the patient was kept on a mechanical ventilator sedated with propofol and the current vent setting this morning included an assist-control of 20 and tidal volume of 450 FiO2 of 100% with a PEEP of 10. Morning blood gases showed a pH of 7.39 with a pCO2 of 31 and a pO2 of 49. Based on that, I increased the PEEP up to 14 and the tidal volume to 400s. The rate at 20 for now. The chest x-ray showing diffuse bilateral pulmonary infiltrates. A CT angiogram was in the emergency department and there was no evidence of any pulmonary embolism. The CAT scan also showed extensive airspace consolidation and atelectasis in the lower lung naik. A repeat chest x-ray was done today and it showed extensive airspace disease bilaterally especially in the lower lobes. The patient' the LDH was 891, C-reactive protein is 252, lactic acid was at 2.1. The patient has a known BUN and creatinine. white cell count is at 19.6. The patient has lymphopenia. D-dimer is at 3.68 . Overnight, the patient also had to placed on pressors and the patient is currently on norepinephrine infusion running at 0.1 mcg/kg per minute. The patient is currently receiving a bolus of normal saline 1 L and a maintenance fluid to be normal saline at the rate of 100 mL an hour. Enterofeeding will be also initiated. He had a low-grade fever. No nausea. No vomiting. No emesis. No diarrhea. No abdominal distention. No other comp laints otherwise. There was apparently an elevated troponin from the hospital and repeat troponin levels will be obtained. Echocardiogram will be obtained. The patient is seen today 10/08/2020 in follow-up in the intensive care unit. He remains intubated on the mechanical ventilator. Current settings assist- control 26, tidal volume 400, FiO2 80% and a PEEP of 18. Morning blood gases reveal a P O2 of 95, pCO2 56, pH 7.15. These gases were on 100% FiO2 and a respiratory rate of 20. He remains on to propofol at 50 mcg/kg/m. Norepinephrine at 12 mcg/m. 0.9 normal saline at 100 ML's per hour. He is on Nimbex at 1.5 mcg/kg/m He is being nourished with vital 1.2 at 75 mL every 4 hours with free water flushes. He remains on Lovenox and Decadron. He remains on vitamin supplements. He received a loading dose of Remdesivir. No further Remdesivir planned as he is mechanically ventilated. He is currently afebrile. Tachycardic. Sputum culture pending. Blood culture reveals no growth to date. This x-ray continues to revealed mid and lower lung airspace disease with slight improvement. Echocardiogram reveals moderate to severely impaired left ventricular systolic function with ejection fraction 30-35%. White count 15.1. Hemoglobin 13.6. Lymphocytes 0.5. D-dimer 1.21. Sodium 137. Potassium 4.5. Creatinine 1.09. Ferritin 1412. LDH 747. Troponin 1.02, 0.88. C-reactive protein 368. The patient is seen today 10/09/2020 in follow-up in the intensive care unit. He remains intubated on mechanical ventilator currently on assist control rate of 26, tidal volume 400, FiO2 50% and a PEEP of 18. Blood gases reveal a P O2 of 63, pCO2 44, pH 7.22. Chest x-ray reveals stable bilateral lung infiltrates left greater than right. He is and Brovana 50 mcg/kg/m. Norepinephrine at 5.5 mg/m, 0.9 normal saline at 100 ML's per hour. His paralyzed with Nimbex at 2 mcg/kg/m. Being nourished with vital HP at 150 ML's every 4 hours. Blood and sputum cultures reveal no growth. He has received 2 units of convalescent plasma. White count 13.6. Hemoglobin 12.9. Lymphocytes 0.2. D-dimer 0.79. Sodium 138. Potassium 3.9. Bicarb 18. Creatinine 1.42. Glucose 168. Ferritin 1167. LDH 814. C-reactive protein 202. He remains on dexamethasone, Lovenox, Pepcid, melatonin, vitamin supplements. The patient is seen today 10/10/2020 in follow-up in the intensive care unit. He remains intubated on mechanical ventilator with current settings assist- control with a rate of 26, tidal been 400, 60% FiO2 and a PEEP of 18. Morning blood gases revealed a PaO2 of 71, pCO2 52, pH 7.15. He has been on sodium bicarb tablets 650 mg twice a day. He is on 0.9#20 ML's per hour. Norepinephrine at 1.5 mcg/m. Propofol at 50 mcg/kg/m. Nimbex at 0.5 mcg/kg/m. He is being nourished with vital HP with bolus feedings of 150 ML's every 4 hour with free water flushes. Chest x-ray reveals bibasilar reticular nodular infiltrates. No change compared to previous. Blood culture reveals no growth to date. Sputum culture reveals no growth. White count 15.9. Hemoglobin 13.8. D-dimer 1.03. Sodium 140. Potassium 4.2. Bicarb 18. Creatinine 1.65. Glucose 140. Ferritin 1300. C-reactive protein 157. He remains on dexamethasone, Lovenox, Pepcid, melatonin, vitamin supplements. Objective - Vital Signs Vital signs: Vital Signs Temp 98.0 F 10/10/20 08:00 Pulse 114 H 10/10/20 10:45 Resp 27 H 10/10/20 10:45 BP 89/69 10/10/20 10:45 Pulse Ox 95 10/10/20 10:45 Intake & Output 10/09/20 10/10/20 10/10/20 18:59 06:59 18:59 Intake Total 8931.200 3463.172 277.964 Output Total 523 943 15 Balance 517.329 436.172 262.964 Weight 75.8 kg 76.9 kg 76.9 kg Intake: IV 395 433 23 Beatriz Flush 33 3 Piperacillin-Tazobactam 3 200 .375 gm In Sodium Chloride 0.9% 100 ml @ 25 mls/hr IVPB Q8HR [facility] Rx# :[id number] Sodium Chloride 0.9% 1, 395 200 20 000 ml @ 20 mls/hr IV . Q24H [facility] Rx#:[id number] Intake, IV Titration 555.329 266.172 134.964 Amount Cisatracurium 200 mg In 126.84 26.25 Sodium Chloride 0.9% 180 ml @ 1 MCG/KG/MIN 4.2 mls /hr IV .Q24H [facility] Rx#: [id number] Norepinephrine 8 mg In 103.079 72.132 8.714 Sodium Chloride 0.9% 250 ml @ 0.05 MCG/KG/MIN 6. 773 mls/hr IV .Q24H [facility] Rx#:[id number] Piperacillin-Tazobactam 3 200 .375 gm In Sodium Chloride 0.9% 100 ml @ 25 mls/hr IVPB Q8HR [facility] Rx# :[id number] propofoL 1,000 mg In 252.25 67.2 100 Empty Bag 1 bag @ Titrate IV .Q0M [facility] Rx#: [id number] Tube Feeding 90 600 120 Other 80 Output: Urine 523 243 15 Stool 700 Other: Voiding Method Indwelling Catheter Indwelling Catheter # Bowel Movements 1 ABP, PAP, CO, CI - Last Documented Arterial Blood Pressure 107/66 - Exam Gen. appearance: a 70-year-old male patient, intubated on mechanical ventilator. Sedated on propofol. Paralyzed with Nimbex. The patient is synchronous with the mechanical ventilator. Head exam was generally normal. There was no scleral icterus or corneal arcus. Mucous membranes were moist. Neck was supple and without jugular venous distension, thyromegaly, or carotid bruits. Carotids were easily palpable bilaterally. There was no adenopathy. The patient has orogastric and orotracheal tube and both of them are in place. Lungs sounds are diminished and the patient has crackles in the lung bases bilaterally. Cardiac exam revealed the PMI to be normally situated and sized. The rhythm was regular and no extrasystoles were noted during several minutes of auscultation. The first and second heart sounds were normal and physiologic splitting of the second heart sound was noted. There were no murmurs, rubs, clicks, or gallops. Abdominal exam revealed normal bowel sounds. The abdomen was soft, non-tender, and without masses, organomegaly, or appreciable enlargement of the abdominal aorta. Examination of the extremities revealed easily palpable radial, femoral and pedal pulses. There was no cyanosis, clubbing or edema. Examination of the skin revealed no evidence of significant rashes, suspicious appearing nevi or other concerning lesions. Neurologically the patient is sedated, comfortable, withdraws to painful stimulation. Pupils are equal and reactive to light. No focal neurological deficits. - Labs CBC & Chem 7: 10/10/20 05:00 10/10/20 05:00 Labs: Abnormal Lab Results - Last 24 Hours (Table) 10/09/20 10/09/20 10/10/20 Range/Units 11:52 17:11 00:18 WBC (3.8-10.6) k/uL Plt Count (150-450) k/uL Neutrophils # (1.3-7.7) k/uL Lymphocytes # (1.0-4.8) k/uL Fibrinogen (200-500) mg/dL D-Dimer (<0.60) mg/L FEU ABG pH (7.35-7.45) ABG pCO2 (35-45) mmHg ABG pO2 (83-108) mmHg ABG HCO3 (21-25) mmol/L ABG O2 Saturation (94-97) % Chloride (98-107) mmol/L Carbon Dioxide (22-30) mmol/L BUN (9-20) mg/dL Creatinine (0.66-1.25) mg/dL Glucose (74-99) mg/dL POC Glucose (mg/dL) 144 H 196 H 118 H (75-99) mg/dL Calcium (8.4-10.2) mg/dL Ferritin (22.0-322.0) ng/mL C-Reactive Protein (<10.0) mg/L Total Protein (6.3-8.2) g/dL Albumin (3.5-5.0) g/dL 10/10/20 10/10/20 10/10/20 Range/Units 05:00 05:00 05:00 WBC 15.9 H (3.8-10.6) k/uL Plt Count 536 H (150-450) k/uL Neutrophils # 14.2 H (1.3-7.7) k/uL Lymphocytes # 0.2 L (1.0-4.8) k/uL Fibrinogen 1009 H (200-500) mg/dL D-Dimer 1.03 H (<0.60) mg/L FEU ABG pH (7.35-7.45) ABG pCO2 (35-45) mmHg ABG pO2 (83-108) mmHg ABG HCO3 (21-25) mmol/L ABG O2 Saturation (94-97) % Chloride 113 H (98-107) mmol/L Carbon Dioxide 18 L (22-30) mmol/L BUN 51 H (9-20) mg/dL Creatinine 1.65 H (0.66-1.25) mg/dL Glucose 140 H (74-99) mg/dL POC Glucose (mg/dL) (75-99) mg/dL Calcium 6.9 L (8.4-10.2) mg/dL Ferritin 1300.5 H (22.0-322.0) ng/mL C-Reactive Protein 157.0 H (<10.0) mg/L Total Protein 5.2 L (6.3-8.2) g/dL Albumin 2.5 L (3.5-5.0) g/dL 10/10/20 10/10/20 10/10/20 Range/Units 05:28 05:52 10:11 WBC (3.8-10.6) k/uL Plt Count (150-450) k/uL Neutrophils # (1.3-7.7) k/uL Lymphocytes # (1.0-4.8) k/uL Fibrinogen (200-500) mg/dL D-Dimer (<0.60) mg/L FEU ABG pH 7.15 L* (7.35-7.45) ABG pCO2 52 H (35-45) mmHg ABG pO2 71 L (83-108) mmHg ABG HCO3 18 L (21-25) mmol/L ABG O2 Saturation 93.8 L (94-97) % Chloride (98-107) mmol/L Carbon Dioxide (22-30) mmol/L BUN (9-20) mg/dL Creatinine (0.66-1.25) mg/dL Glucose (74-99) mg/dL POC Glucose (mg/dL) 125 H 118 H (75-99) mg/dL Calcium (8.4-10.2) mg/dL Ferritin (22.0-322.0) ng/mL C-Reactive Protein (<10.0) mg/L Total Protein (6.3-8.2) g/dL Albumin (3.5-5.0) g/dL Microbiology - Last 24 Hours (Table) 10/07/20 19:50 Gram Stain - Final Sputum Sputum Culture - Final 10/06/20 23:45 Blood Culture - Preliminary Blood No Growth after 72 hours Assessment and Plan Assessment: 1 Acute bilateral Covid 19 related pneumonia with extensive consolidation and airspace disease bilaterally mainly in the mid and lower lung naik. He did not receive any Remdesivir due to mechanical ventilation. He did receive 2 units of convalescent plasma. Currently on Lovenox, Decadron, Pepcid, melatonin, vitamin supplements. 2 Acute hypoxic respiratory failure secondary to above, requiring intubation mechanical ventilation. Currently sedated on propofol 50 g kilogram per minute. Paralyzed with Nimbex at 0.5 mcg/kg/m 3 Lymphopenia secondary to above 4 Elevated inflammatory markers secondary to above 5 Suspect non-STEMI and the patient's troponin from [facility] was at 1.72. The EKG showed no ST segment elevation. There was poor R-wave progression and is sinus tachycardia. Some Q waves over the anterior leads. Repeat cardiac enzymes reveal a troponin of 1.02, 0.88. 6 Significant hypotension currently on pressors for hemodynamic support 7 Cardiomyopathy with severely impaired left ventricular systolic function ejection fraction 30-35% 8 Hypospadia and a Govea catheter needs to be established Plan The patient was seen and evaluated by Dr. Dean Chest x-ray, ABGs and labs reviewed Increased sodium bicarb tablets to 1300 mg twice a day Continue Lovenox, Decadron, Pepcid, melatonin, vitamin supplement Wean off the pressors as tolerated Wean off the Nimbex as tolerated Repeat chest x-ray, ABGs and labs in a.m. Prognosis is guarded and poor Dr. Dean did speak at length with the patient's Shikha at length The plan is to see how the patient does over the next several days prior to lulu ing any decisions regarding DO NOT RESUSCITATE/comfort care She clearly states there is no intention for tracheostomy or PEG tube placement as the patient would not want any artificial life-sustaining measures We will continue to follow and make further recommendations based on his clinical status Critical care time 38 minutes I, the cosigning physician, performed a history & physical examination of the patient. Lungs sounds bibasilar crackles. Maintaining good O2 saturations in the 90s on 60% FiO2 via the mechanical ventilator. I discussed the assessment and plan of care with my nurse practitioner, Miguelina Robertson. I attest to the above note as dictated by her.
[2020-10-10] MEDS ORDERED: FUROSEMIDE 10 MG/ML 4 ML VIAL IV STA (15:43)
[2020-10-10] MEDS: SODIUM CHLORIDE 0.9% 1,000 ML IV SCH (15:44)
[2020-10-10 17:06] LABS: Glucose,Whole Blood 157 mg/dL (75-99)
[2020-10-10] MEDS: NOREPINEPHRINE 8 MG in SODIUM CHLORIDE 0.9% 250 ML IV SCH (18:34)
[2020-10-10] MEDS ORDERED: SODIUM CHLORIDE 0.9% 1,000 ML IV ONE ×2 (19:34→19:35)
[2020-10-10] MEDS: ATORVASTATIN 80 MG TAB PO SCH (21:35)
[2020-10-10] MEDS: MELATONIN 5 MG TABLET PO SCH (21:35)
[2020-10-11] MEDS: PIPERACILLIN-TAZOBACTAM 3.375 GM in SODIUM CHLORIDE 0.9% 100 ML IVPB SCH ×3 (00:08→20:52)
[2020-10-11] MEDS: ARTIFICIAL TEARS-HYPROMELLOSE DROPS 15 ML BTL BOTH EYES SCH ×6 (00:08→20:54)
[2020-10-11 00:15] LABS: Glucose,Whole Blood 118 mg/dL (75-99)
[2020-10-11] MEDS: INSULIN ASPART (NovoLOG) 100 UNIT/ML VIAL SQ SCH ×4 (02:29→17:11)
[2020-10-11] MEDS: NOREPINEPHRINE 8 MG in SODIUM CHLORIDE 0.9% 250 ML IV SCH ×2 (03:19→10:14)
[2020-10-11 05:37] LABS: ABG Base Excess -15.7 mmol/L; ABG HCO3 14 mmol/L (21-25); ABG Oxygen Saturation 92.1 % (94-97); ABG PCO2 48 mmHg (35-45); ABG PO2 71 mmHg (83-108); ABG TCO2 16 mmol/L (19-24); Allen Test Performed? Yes
[2020-10-11 05:40] LABS: ABG PH 7.08 (7.35-7.45)
[2020-10-11 05:42] LABS: Albumin 2.2 g/dL (3.5-5.0); Potassium 4.9 mmol/L (3.5-5.1); Total Bilirubin 0.6 mg/dL (0.2-1.3); Total Protein 4.8 g/dL (6.3-8.2)
[2020-10-11 05:55] LABS: C Reactive Protein 153.2 mg/L (<10.0)
[2020-10-11 05:57] LABS: Calcium 6.3 mg/dL (8.4-10.2)
[2020-10-11 06:12] LABS: Glucose,Whole Blood 131 mg/dL (75-99)
[2020-10-11] MEDS: DEXTROSE 5% IN WATER 1,000 ML with SODIUM BICARB (1 MEQ/ML) 150 ML IV SCH ×2 (06:37→16:56)
[2020-10-11 06:45] LABS: HCT 41.9 % (39.0-53.0); HGB 12.8 gm/dL (13.0-17.5); Hypochromasia Moderate; MCH 27.7 pg (25.0-35.0); MCHC 30.6 g/dL (31.0-37.0); MCV 90.4 fL (80.0-100.0); Mean Platelet Volume 8.2; Platelet Count 593 k/uL (150-450); Poikilocytosis Slight; RBC 4.64 m/uL (4.30-5.90); RDW 14.8 % (11.5-15.5); WBC 17.3 k/uL (3.8-10.6)
--- NOTE | 2020-10-11 06:52 | XR ---
EXAMINATION TYPE: XR chest 1V portable DATE OF EXAM: 10/11/2020 CLINICAL HISTORY: Difficulty breathing progress study. TECHNIQUE: Single AP portable semiupright view of the chest is obtained. COMPARISON: Chest x-ray from one day earlier and older studies FINDINGS: Stable endotracheal tube, orogastric tube, and left internal jugular central venous cathet er. Old right lateral mid rib fractures redemonstrated. Cardiac silhouette size is stable and upper limit s of normal. Diffuse Reticulonodular opacities bilaterally remain present. Findings most prominent i n the lower lungs increasing in severity in the right lung base. Underlying scoliotic curvature in th e lumbar spine redemonstrated. IMPRESSION: Bilateral reticulonodular infiltrates and/or edema redemonstrated. Worsening consolidatio n in the right lung base noted from one day earlier.
[2020-10-11 07:10] VITALS: BP 93/54
[2020-10-11 07:11] LABS: Band Neutrophils % 1 %; Lymphocytes # (M) 0.87 k/uL (1.0-4.8); Metamyelocytes # (M) 0.52 k/uL (0); Metamyelocytes % 3 %; Monocytes # (M) 1.73 k/uL (0-1.0); Neutrophils % (M) 82 %; Nucleated Red Blood Cells 0 /100 WBC (0-0); Total Cells Counted 200
--- NOTE | 2020-10-11 08:39 | P.PN ---
Subjective Progress Note Date: 10/11/20 Principal diagnosis: Acute coronary syndrome This is a 70-year-old gentleman who was admitted to the hospital with COVID-19 pneumonia complicated by sepsis and also myocarditis. The patient was seen today September 102020. Unfortunately is not doing well. He continues to be intubated on mechanical ventilation. He continues to be hemodynamically unstable and requiring vasopressors. The kidney function is worse. Currently he is only on aspirin as well as statin. Overall the prognosis is very poor and the patient is not doing well. The echocardiogram from a few days ago revealed severe cardiomyopathy. Objective - Vital Signs Vital signs: Vital Signs Temp 99.1 F 10/11/20 04:00 Pulse 109 H 10/11/20 07:00 Resp 26 H 10/11/20 07:00 BP 93/54 10/11/20 07:00 Pulse Ox 94 L 10/11/20 07:00 Intake & Output 10/10/20 10/11/20 10/11/20 18:59 06:59 18:59 Intake Total 5452.035 5329.895 166.058 Output Total 90 54 5 Balance 1761.054 9816.895 161.058 Weight 76.9 kg Intake: IV 486 500 26 0.9 Normal saline 66 60 6 pressure bag Piperacillin-Tazobactam 3 200 200 .375 gm In Sodium Chloride 0.9% 100 ml @ 25 mls/hr IVPB Q8HR [facility] Rx# :[id number] Sodium Chloride 0.9% 1, 220 240 20 000 ml @ 20 mls/hr IV . Q24H [facility] Rx#:[id number] Intake, IV Titration 233.653 5034.895 140.058 Amount Cisatracurium 200 mg In 26.25 0 Sodium Chloride 0.9% 180 ml @ 1 MCG/KG/MIN 4.2 mls /hr IV .Q24H [facility] Rx#: [id number] Norepinephrine 8 mg In 33.506 232.895 42.058 Sodium Chloride 0.9% 250 ml @ 0.05 MCG/KG/MIN 6. 773 mls/hr IV .Q24H [facility] Rx#:[id number] Sodium Chloride 0.9% 1, 999 000 ml @ 999 mls/hr IV . Q1H1M [facility] Rx#:[id number] Sodium Chloride 0.9% 1, 999 000 ml @ 999 mls/hr IV . Q1H1M [facility] Rx#:[id number] propofoL 1,000 mg In 258.55 100 98 Empty Bag 1 bag @ Titrate IV .Q0M [facility] Rx#: [id number] Tube Feeding 600 450 Lipid 20 Sodium Chloride 0.9% 1, 20 000 ml @ 20 mls/hr IV . Q24H [facility] Rx#:[id number] Other 60 140 Output: Urine 90 54 5 Other: Voiding Method Indwelling Catheter Indwelling Catheter ABP, PAP, CO, CI - Last Documented Arterial Blood Pressure 91/52 - Constitutional General appearance: Present: no acute distress - Respiratory Respiratory: bilateral: diminished - Cardiovascular Rhythm: regular Heart sounds: normal: S1, S2 - Labs CBC & Chem 7: 10/11/20 05:00 10/11/20 05:00 Labs: Abnormal Lab Results - Last 24 Hours (Table) 10/10/20 10/10/20 10/10/20 Range/Units 05:00 10:11 17:04 WBC (3.8-10.6) k/uL Hgb (13.0-17.5) gm/dL MCHC (31.0-37.0) g/dL Plt Count (150-450) k/uL Neutrophils # (Manual) (1.3-7.7) k/uL Lymphocytes # (Manual) (1.0-4.8) k/uL Monocytes # (Manual) (0-1.0) k/uL Metamyelocytes # (Man) (0) k/uL D-Dimer (<0.60) mg/L FEU ABG pH (7.35-7.45) ABG pCO2 (35-45) mmHg ABG pO2 (83-108) mmHg ABG HCO3 (21-25) mmol/L ABG Total CO2 (19-24) mmol/L ABG O2 Saturation (94-97) % Chloride (98-107) mmol/L Carbon Dioxide (22-30) mmol/L BUN (9-20) mg/dL Creatinine (0.66-1.25) mg/dL Glucose (74-99) mg/dL POC Glucose (mg/dL) 118 H 157 H (75-99) mg/dL Calcium (8.4-10.2) mg/dL Ferritin 1300.5 H (22.0-322.0) ng/mL AST (17-59) U/L ALT (4-49) U/L C-Reactive Protein (<10.0) mg/L Total Protein (6.3-8.2) g/dL Albumin (3.5-5.0) g/dL 10/11/20 10/11/20 10/11/20 Range/Units 00:13 05:00 05:00 WBC 17.3 H (3.8-10.6) k/uL Hgb 12.8 L (13.0-17.5) gm/dL MCHC 30.6 L (31.0-37.0) g/dL Plt Count 593 H (150-450) k/uL Neutrophils # (Manual) 14.30 H (1.3-7.7) k/uL Lymphocytes # (Manual) 0.87 L (1.0-4.8) k/uL Monocytes # (Manual) 1.73 H (0-1.0) k/uL Metamyelocytes # (Man) 0.52 H (0) k/uL D-Dimer 0.83 H (<0.60) mg/L FEU ABG pH (7.35-7.45) ABG pCO2 (35-45) mmHg ABG pO2 (83-108) mmHg ABG HCO3 (21-25) mmol/L ABG Total CO2 (19-24) mmol/L ABG O2 Saturation (94-97) % Chloride (98-107) mmol/L Carbon Dioxide (22-30) mmol/L BUN (9-20) mg/dL Creatinine (0.66-1.25) mg/dL Glucose (74-99) mg/dL POC Glucose (mg/dL) 118 H (75-99) mg/dL Calcium (8.4-10.2) mg/dL Ferritin (22.0-322.0) ng/mL AST (17-59) U/L ALT (4-49) U/L C-Reactive Protein (<10.0) mg/L Total Protein (6.3-8.2) g/dL Albumin (3.5-5.0) g/dL 10/11/20 10/11/20 10/11/20 Range/Units 05:00 05:31 06:09 WBC (3.8-10.6) k/uL Hgb (13.0-17.5) gm/dL MCHC (31.0-37.0) g/dL Plt Count (150-450) k/uL Neutrophils # (Manual) (1.3-7.7) k/uL Lymphocytes # (Manual) (1.0-4.8) k/uL Monocytes # (Manual) (0-1.0) k/uL Metamyelocytes # (Man) (0) k/uL D-Dimer (<0.60) mg/L FEU ABG pH 7.08 L* (7.35-7.45) ABG pCO2 48 H (35-45) mmHg ABG pO2 71 L (83-108) mmHg ABG HCO3 14 L (21-25) mmol/L ABG Total CO2 16 L (19-24) mmol/L ABG O2 Saturation 92.1 L (94-97) % Chloride 116 H (98-107) mmol/L Carbon Dioxide 15 L (22-30) mmol/L BUN 67 H (9-20) mg/dL Creatinine 3.37 H (0.66-1.25) mg/dL Glucose 147 H (74-99) mg/dL POC Glucose (mg/dL) 131 H (75-99) mg/dL Calcium 6.3 L* (8.4-10.2) mg/dL Ferritin (22.0-322.0) ng/mL AST 638 H (17-59) U/L ALT 296 H (4-49) U/L C-Reactive Protein 153.2 H (<10.0) mg/L Total Protein 4.8 L (6.3-8.2) g/dL Albumin 2.2 L (3.5-5.0) g/dL Microbiology - Last 24 Hours (Table) 10/06/20 23:45 Blood Culture - Preliminary Blood No Growth after 96 hours 10/07/20 19:50 Gram Stain - Final Sputum Sputum Culture - Final Assessment and Plan Assessment: Assessment #1 acute hypoxic respiratory failure #2 pneumonia related to COVID-19 infection #3 severe cardiomyopathy #4 myocarditis #5 multiple comorbid conditions Plan #1 continue aspirin as well as a statin #2 consider starting the patient on small dose of metoprolol in the next 24 hours #3 follow-up with the patient
[2020-10-11] MEDS: ASPIRIN 81 MG PO SCH (08:41)
[2020-10-11] MEDS: ASCORBIC ACID 500 MG TAB PO SCH ×2 (08:41→20:53)
[2020-10-11] MEDS: ENOXAPARIN 40 MG/0.4 ML SYRINGE SQ SCH (08:41)
[2020-10-11] MEDS: CHLORHEXIDINE GLUCONATE 15 ML CUP MUCOUS MEM SCH ×2 (08:41→20:52)
[2020-10-11] MEDS: ZINC SULFATE 220 MG CAP PO SCH (08:42)
[2020-10-11] MEDS: FAMOTIDINE 20 MG/2 ML VIAL IV SCH (08:42)
[2020-10-11] MEDS: DEXAMETHASONE SOD PHOSPHATE 10 MG/ML 1 ML VIAL IV SCH (08:42)
[2020-10-11] MEDS: SODIUM BICARBONATE TAB 650 MG TAB PO SCH ×2 (08:46→20:56)
[2020-10-11] MEDS: CISATRACURIUM 200 MG in SODIUM CHLORIDE 0.9% 180 ML IV SCH (08:59)
[2020-10-11 11:30] LABS: Ferritin 4771.4 ng/mL (22.0-322.0)
[2020-10-11 12:02] LABS: Glucose,Whole Blood 165 mg/dL (75-99)
--- NOTE | 2020-10-11 12:13 | P.PN ---
Subjective Progress Note Date: 10/11/20 Principal diagnosis: CoVID 19 pneumonitis This is a 68-year-old male patient, essentially negative medical history, who came into [facility] with worsening shortness of breath and the patient was found to have bilateral pneumonia and further investigation confirmed the pr esence of COVID 19 related pneumonia. The patient was very much hypoxic in the emergency department and the patient was intubated and placed on a mechanical ventilator and following that the patient was transferred to [facility] for further investigation. At the time of the arrival, the patient was already intubated on a mechanical ventilator. A central line was placed and the left IJ and an art line was also established in the right radial artery. Following that, the patient was kept on a mechanical ventilator sedated with propofol and the current vent setting this morning included an assist-control of 20 and tidal volume of 450 FiO2 of 100% with a PEEP of 10. Morning blood gases showed a pH of 7.39 with a pCO2 of 31 and a pO2 of 49. Based on that, I increased the PEEP up to 14 and the tidal volume to 400s. The rate at 20 for now. The chest x-ray showing diffuse bilateral pulmonary infiltrates. A CT angiogram was in the emergency department and there was no evidence of any pulmonary embolism. The CAT scan also showed extensive airspace consolidation and atelectasis in the lower lung naik. A repeat chest x-ray was done today and it showed extensive airspace disease bilaterally especially in the lower lobes. The patient' the LDH was 891, C-reactive protein is 252, lactic acid was at 2.1. The patient has a known BUN and creatinine. white cell count is at 19.6. The patient has lymphopenia. D-dimer is at 3.68 . Overnight, the patient also had to placed on pressors and the patient is currently on norepinephrine infusion running at 0.1 mcg/kg per minute. The patient is currently receiving a bolus of normal saline 1 L and a maintenance fluid to be normal saline at the rate of 100 mL an hour. Enterofeeding will be also initiated. He had a low-grade fever. No nausea. No vomiting. No emesis. No diarrhea. No abdominal distention. No other comp laints otherwise. There was apparently an elevated troponin from the hospital and repeat troponin levels will be obtained. Echocardiogram will be obtained. The patient is seen today 10/08/2020 in follow-up in the intensive care unit. He remains intubated on the mechanical ventilator. Current settings assist- control 26, tidal volume 400, FiO2 80% and a PEEP of 18. Morning blood gases reveal a P O2 of 95, pCO2 56, pH 7.15. These gases were on 100% FiO2 and a respiratory rate of 20. He remains on to propofol at 50 mcg/kg/m. Norepinephrine at 12 mcg/m. 0.9 normal saline at 100 ML's per hour. He is on Nimbex at 1.5 mcg/kg/m He is being nourished with vital 1.2 at 75 mL every 4 hours with free water flushes. He remains on Lovenox and Decadron. He remains on vitamin supplements. He received a loading dose of Remdesivir. No further Remdesivir planned as he is mechanically ventilated. He is currently afebrile. Tachycardic. Sputum culture pending. Blood culture reveals no growth to date. This x-ray continues to revealed mid and lower lung airspace disease with slight improvement. Echocardiogram reveals moderate to severely impaired left ventricular systolic function with ejection fraction 30-35%. White count 15.1. Hemoglobin 13.6. Lymphocytes 0.5. D-dimer 1.21. Sodium 137. Potassium 4.5. Creatinine 1.09. Ferritin 1412. LDH 747. Troponin 1.02, 0.88. C-reactive protein 368. The patient is seen today 10/09/2020 in follow-up in the intensive care unit. He remains intubated on mechanical ventilator currently on assist control rate of 26, tidal volume 400, FiO2 50% and a PEEP of 18. Blood gases reveal a P O2 of 63, pCO2 44, pH 7.22. Chest x-ray reveals stable bilateral lung infiltrates left greater than right. He is and Brovana 50 mcg/kg/m. Norepinephrine at 5.5 mg/m, 0.9 normal saline at 100 ML's per hour. His paralyzed with Nimbex at 2 mcg/kg/m. Being nourished with vital HP at 150 ML's every 4 hours. Blood and sputum cultures reveal no growth. He has received 2 units of convalescent plasma. White count 13.6. Hemoglobin 12.9. Lymphocytes 0.2. D-dimer 0.79. Sodium 138. Potassium 3.9. Bicarb 18. Creatinine 1.42. Glucose 168. Ferritin 1167. LDH 814. C-reactive protein 202. He remains on dexamethasone, Lovenox, Pepcid, melatonin, vitamin supplements. The patient is seen today 10/10/2020 in follow-up in the intensive care unit. He remains intubated on mechanical ventilator with current settings assist- control with a rate of 26, tidal been 400, 60% FiO2 and a PEEP of 18. Morning blood gases revealed a PaO2 of 71, pCO2 52, pH 7.15. He has been on sodium bicarb tablets 650 mg twice a day. He is on 0.9#20 ML's per hour. Norepinephrine at 1.5 mcg/m. Propofol at 50 mcg/kg/m. Nimbex at 0.5 mcg/kg/m. He is being nourished with vital HP with bolus feedings of 150 ML's every 4 hour with free water flushes. Chest x-ray reveals bibasilar reticular nodular infiltrates. No change compared to previous. Blood culture reveals no growth to date. Sputum culture reveals no growth. White count 15.9. Hemoglobin 13.8. D-dimer 1.03. Sodium 140. Potassium 4.2. Bicarb 18. Creatinine 1.65. Glucose 140. Ferritin 1300. C-reactive protein 157. He remains on dexamethasone, Lovenox, Pepcid, melatonin, vitamin supplements. The patient is seen today 10/11/2020 in follow-up in the intensive care unit. He remains intubated on the mechanical ventilator and not assist-control mode with a rate of 26, tidal been 400, FiO2 60% and a PEEP of 18. Morning blood gases revealed a pO2 of 71, pCO2 40, pH 7.08. He's been initiated on D5W with 3 A of bicarb at 100 ML's per hour. Continued on oral bicarbonate tablets as well. He is paralyzed and Nimbex at 0.5 mcg/kg/m. Sedated with propofol at 45 mcg/kg/m. He is on norepinephrine at 27 mcg/m. He is being nourished with vital AF 1.2 at 150 ML's every 4 hours along with free water flushes. He remains quite acidotic despite additional bicarb. His pressor requirements have increased. He only has Doppler pulses of the lower extremities. Skin is somewhat mottled. All cultures reveal no growth. Sputum culture reveals no growth. He has received 2 units of convalescent plasma. He remains on dexamethasone, Lovenox, Pepcid, melatonin, vitamin supplements. White count 17.3. Hemoglobin 12.8. Platelet count 593. D-dimer 0.83. Sodium 141. Potassium 4.9. Creatinine 3.37. Ferritin 4771. AST 638. ALT 296. C-reactive protein 153. Objective - Vital Signs Vital signs: Vital Signs Temp 99.1 F 10/11/20 04:00 Pulse 109 H 10/11/20 07:00 Resp 26 H 10/11/20 07:00 BP 93/54 10/11/20 07:00 Pulse Ox 94 L 10/11/20 07:00 Intake & Output 10/10/20 10/11/20 10/11/20 18:59 06:59 18:59 Intake Total 4690.635 4094.895 423.412 Output Total 90 54 5 Balance 2126.350 6474.895 418.412 Weight 76.9 kg Intake: IV 486 500 26 0.9 Normal saline 66 60 6 pressure bag Piperacillin-Tazobactam 3 200 200 .375 gm In Sodium Chloride 0.9% 100 ml @ 25 mls/hr IVPB Q8HR [facility] Rx# :[id number] Sodium Chloride 0.9% 1, 220 240 20 000 ml @ 20 mls/hr IV . Q24H [facility] Rx#:[id number] Intake, IV Titration 913.590 7405.895 397.412 Amount Cisatracurium 200 mg In 26.25 0 2.86 Sodium Chloride 0.9% 180 ml @ 1 MCG/KG/MIN 4.2 mls /hr IV .Q24H [facility] Rx#: [id number] Norepinephrine 8 mg In 33.506 232.895 238.102 Sodium Chloride 0.9% 250 ml @ 0.05 MCG/KG/MIN 6. 773 mls/hr IV .Q24H [facility] Rx#:[id number] Sodium Chloride 0.9% 1, 999 000 ml @ 999 mls/hr IV . Q1H1M [facility] Rx#:[id number] Sodium Chloride 0.9% 1, 999 000 ml @ 999 mls/hr IV . Q1H1M [facility] Rx#:[id number] propofoL 1,000 mg In 258.55 100 156.45 Empty Bag 1 bag @ Titrate IV .Q0M [facility] Rx#: [id number] Tube Feeding 600 450 Lipid 20 Sodium Chloride 0.9% 1, 20 000 ml @ 20 mls/hr IV . Q24H [facility] Rx#:[id number] Other 60 140 Output: Urine 90 54 5 Other: Voiding Method Indwelling Catheter Indwelling Catheter ABP, PAP, CO, CI - Last Documented Arterial Blood Pressure 91/52 - Exam Gen. appearance: Reveals a 70-year-old male patient, intubated on mechanical ventilator. Sedated on propofol. Paralyzed with Nimbex. The patient is syn chronous with the mechanical ventilator. Head exam was generally normal. There was no scleral icterus or corneal arcus. Mucous membranes were moist. Neck was supple and without jugular venous distension, thyromegaly, or carotid bruits. Carotids were easily palpable bilaterally. There was no adenopathy. The patient has orogastric and orotracheal tube and both of them are in place. Lungs sounds are diminished and the patient has crackles in the lung bases bilaterally. Cardiac exam revealed the PMI to be normally situated and sized. The rhythm was regular and no extrasystoles were noted during several minutes of auscultation. The first and second heart sounds were normal and physiologic splitting of the second heart sound was noted. There were no murmurs, rubs, clicks, or gallops. Abdominal exam revealed normal bowel sounds. The abdomen was soft, non-tender, and without masses, organomegaly, or appreciable enlargement of the abdominal aorta. Examination of the extremities revealed easily palpable radial, femoral and pedal pulses. There was no cyanosis, clubbing or edema. Examination of the skin revealed no evidence of significant rashes, suspicious appearing nevi or other concerning lesions. Neurologically the patient is sedated, comfortable, withdraws to painful stimulation. Pupils are equal and reactive to light. No focal neurological deficits. - Labs CBC & Chem 7: 10/11/20 05:00 10/11/20 05:00 Labs: Abnormal Lab Results - Last 24 Hours (Table) 10/10/20 10/11/20 10/11/20 Range/Units 17:04 00:13 05:00 WBC 17.3 H (3.8-10.6) k/uL Hgb 12.8 L (13.0-17.5) gm/dL MCHC 30.6 L (31.0-37.0) g/dL Plt Count 593 H (150-450) k/uL Neutrophils # (Manual) 14.30 H (1.3-7.7) k/uL Lymphocytes # (Manual) 0.87 L (1.0-4.8) k/uL Monocytes # (Manual) 1.73 H (0-1.0) k/uL Metamyelocytes # (Man) 0.52 H (0) k/uL D-Dimer (<0.60) mg/L FEU ABG pH (7.35-7.45) ABG pCO2 (35-45) mmHg ABG pO2 (83-108) mmHg ABG HCO3 (21-25) mmol/L ABG Total CO2 (19-24) mmol/L ABG O2 Saturation (94-97) % Chloride (98-107) mmol/L Carbon Dioxide (22-30) mmol/L BUN (9-20) mg/dL Creatinine (0.66-1.25) mg/dL Glucose (74-99) mg/dL POC Glucose (mg/dL) 157 H 118 H (75-99) mg/dL Calcium (8.4-10.2) mg/dL Ferritin (22.0-322.0) ng/mL AST (17-59) U/L ALT (4-49) U/L C-Reactive Protein (<10.0) mg/L Total Protein (6.3-8.2) g/dL Albumin (3.5-5.0) g/dL 10/11/20 10/11/20 10/11/20 Range/Units 05:00 05:00 05:31 WBC (3.8-10.6) k/uL Hgb (13.0-17.5) gm/dL MCHC (31.0-37.0) g/dL Plt Count (150-450) k/uL Neutrophils # (Manual) (1.3-7.7) k/uL Lymphocytes # (Manual) (1.0-4.8) k/uL Monocytes # (Manual) (0-1.0) k/uL Metamyelocytes # (Man) (0) k/uL D-Dimer 0.83 H (<0.60) mg/L FEU ABG pH 7.08 L* (7.35-7.45) ABG pCO2 48 H (35-45) mmHg ABG pO2 71 L (83-108) mmHg ABG HCO3 14 L (21-25) mmol/L ABG Total CO2 16 L (19-24) mmol/L ABG O2 Saturation 92.1 L (94-97) % Chloride 116 H (98-107) mmol/L Carbon Dioxide 15 L (22-30) mmol/L BUN 67 H (9-20) mg/dL Creatinine 3.37 H (0.66-1.25) mg/dL Glucose 147 H (74-99) mg/dL POC Glucose (mg/dL) (75-99) mg/dL Calcium 6.3 L* (8.4-10.2) mg/dL Ferritin 4771.4 H (22.0-322.0) ng/mL AST 638 H (17-59) U/L ALT 296 H (4-49) U/L C-Reactive Protein 153.2 H (<10.0) mg/L Total Protein 4.8 L (6.3-8.2) g/dL Albumin 2.2 L (3.5-5.0) g/dL 10/11/20 Range/Units 06:09 WBC (3.8-10.6) k/uL Hgb (13.0-17.5) gm/dL MCHC (31.0-37.0) g/dL Plt Count (150-450) k/uL Neutrophils # (Manual) (1.3-7.7) k/uL Lymphocytes # (Manual) (1.0-4.8) k/uL Monocytes # (Manual) (0-1.0) k/uL Metamyelocytes # (Man) (0) k/uL D-Dimer (<0.60) mg/L FEU ABG pH (7.35-7.45) ABG pCO2 (35-45) mmHg ABG pO2 (83-108) mmHg ABG HCO3 (21-25) mmol/L ABG Total CO2 (19-24) mmol/L ABG O2 Saturation (94-97) % Chloride (98-107) mmol/L Carbon Dioxide (22-30) mmol/L BUN (9-20) mg/dL Creatinine (0.66-1.25) mg/dL Glucose (74-99) mg/dL POC Glucose (mg/dL) 131 H (75-99) mg/dL Calcium (8.4-10.2) mg/dL Ferritin (22.0-322.0) ng/mL AST (17-59) U/L ALT (4-49) U/L C-Reactive Protein (<10.0) mg/L Total Protein (6.3-8.2) g/dL Albumin (3.5-5.0) g/dL Microbiology - Last 24 Hours (Table) 10/06/20 23:45 Blood Culture - Preliminary Blood No Growth after 96 hours 10/07/20 19:50 Gram Stain - Final Sputum Sputum Culture - Final Assessment and Plan Assessment: 1 Acute bilateral Covid 19 related pneumonia with extensive consolidation and airspace disease bilaterally mainly in the mid and lower lung naik. He did not receive any Remdesivir due to mechanical ventilation. He did receive 2 units of convalescent plasma. Currently on Lovenox, Decadron, Pepcid, melatonin, vitamin supplements. 2 Acute hypoxic respiratory failure secondary to above, requiring intubation mechanical ventilation. Currently sedated on propofol 45 g kilogram per minute. Paralyzed with Nimbex at 0.5 mcg/kg/m 3 Severe respiratory/metabolic acidosis with a pH of 7.08 despite addition of bicarbonate tablets and bicarb drip. 4 Significant hypotension currently on pressors for hemodynamic support, with continued increasing requirements, may need to add vasopressin to norepinephrine 5 Suspect non-STEMI and the patient's troponin from [facility] was at 1.72. The EKG showed no ST segment elevation. There was poor R-wave progres iván and is sinus tachycardia. Some Q waves over the anterior leads. Repeat cardiac enzymes reveal a troponin of 1.02, 0.88. 6 Cardiomyopathy with severely impaired left ventricular systolic function ejection fraction 30-35% 7 Hypospadia and a Govea catheter was established Plan The patient was seen and evaluated by Dr. Dean Chest x-ray, ABGs and labs reviewed Added bicarb drip Has required increased pressor support may need vasopressin in addition He remains on sedation and paralytics keep synchronous with the ventilator Prognosis is guarded and poor Dr. Dean did speak at length with the patient's Shikha at length Nursing staff updated her again today The plan is to see how the patient does over the next few days prior to making any decisions regarding DO NOT RESUSCITATE/comfort care She clearly states there is no intention for tracheostomy or PEG tube placement as the patient would not want any artificial life-sustaining measures We will continue to follow and make further recommendations based on his clinical status Critical care time 36 minutes I, the cosigning physician, performed a history & physical examination of the patient. Lungs sounds bibasilar crackles. Maintaining good O2 saturations in the 90s on 60% FiO2 and a PEEP of 18 via the mechanical ventilator. I discussed the assessment and plan of care with my nurse practitioner, Miguelina Robertson. I attest to the above note as dictated by her. Time with Patient: Greater than 30
[2020-10-11] MEDS: ACETAMINOPHEN TAB 325 MG TAB PO PRN ×2 (13:24→17:15)
[2020-10-11] MEDS: SODIUM CHLORIDE 0.9% 1,000 ML IV SCH (15:58)
[2020-10-11] MEDS: NOREPINEPHRINE 32 MG in SODIUM CHLORIDE 0.9% 218 ML IV SCH (16:39)
[2020-10-11 17:10] LABS: Glucose,Whole Blood 245 mg/dL (75-99)
[2020-10-11] MEDS: ATORVASTATIN 80 MG TAB PO SCH (20:53)
[2020-10-11] MEDS: MELATONIN 5 MG TABLET PO SCH (20:56)
[2020-10-11 21:12] LABS: Glucose,Whole Blood 194 mg/dL (75-99)
--- NOTE | 2020-10-11 22:46 | P.PN ---
Subjective Progress Note Date: 10/09/20 Principal diagnosis: Acute hypoxic respiratory failure requiring mechanical ventilation Acute bilateral COVID-19 pneumonia Patient is a 68-year-old male with a past medical history of GIB - duodenal ulcer 2011, hypospadia and hx of smoking initially presented to [facility] due to worsening shortness of breath x1 week and was hypoxic in the ER. Patient was intubated and placed on mechanical ventilator and transferred to [facility] for further management. Patient was tested positive for COVID-19 pneumonia. Chest x-ray showed NG tube in position. There is increased infiltrate and atelectasis in the lung naik compared to exam [address] angiogram of the chest was done in the ER showed no evidence of pulmonary embolism. No aortic dissection or aneurysm. Extensive airspace consolidation and atelectasis in the lower lung naik. Laboratory data showed WBC 17.1, hemoglobin 16.2 and lymphocytes 0.6 ABG showed PCO2 29 and PO2 43 and pH 7.43 Sodium 132, potassium 4.9, BUN 23 and creatinine 0.89 lactic acid level is 2.2 on admission Ferritin 1306.7, LDH 1033, CRP 247.2 and pro calcitonin level is 5.27 Troponin 2.670 and 1.370 10/08/2020 Patient is currently in the MICU and on mechanical ventilator. Currently FiO2 80% and PEEP of 18. Continue Lovenox, Decadron and remdesivir. Patient has been afebrile. Still tachycardic and tachypneic. Chest x-ray showed mid and lower lung airspace disease persists but improving. Patient was started on antibiotics in the form of Zosyn. 2D echocardiogram showed severe cardiomyopathy. Cardiology recommends medical management at this time with aspirin and statins. Cardiology and pulmonary is following. 10/09/2020 Patient is currently in the MICU intubated and sedated. FiO2 50% and PEEP of 18. Chest x-ray showed bilateral lung infiltrates left greater than right. Patient is on Levophed drip as well. Continued on antibiotics in form of Zosyn. Otherwise patient remains on dexamethasone, Lovenox, vitamin supplementation. Pulmonary and cardiology on board. Current medications reviewed. Objective - Vital Signs Vital signs: Vital Signs Temp 98.0 F 10/09/20 16:00 Pulse 105 H 10/09/20 19:00 Resp 26 H 10/09/20 19:00 BP 116/71 10/09/20 19:00 Pulse Ox 95 10/09/20 19:00 Intake & Output 10/09/20 10/09/20 10/10/20 06:59 18:59 06:59 Intake Total 3352.798 940.329 Output Total 350 523 Balance 3002.798 417.329 Weight 75.8 kg 75.8 kg Intake: IV 2100 395 Sodium Chloride 0.9% 1, 1100 395 000 ml @ 20 mls/hr IV . Q24H [facility] Rx#:[id number] Sodium Chloride 0.9% 1, 1000 000 ml @ 999 mls/hr IV . Q1H1M [facility] Rx#:[id number] Intake, IV Titration 682.798 455.329 Amount Cisatracurium 200 mg In 132.58 Sodium Chloride 0.9% 180 ml @ 1 MCG/KG/MIN 4.2 mls /hr IV .Q24H [facility] Rx#: [id number] Norepinephrine 8 mg In 170.918 103.079 Sodium Chloride 0.9% 250 ml @ 0.05 MCG/KG/MIN 6. 773 mls/hr IV .Q24H [facility] Rx#:[id number] Piperacillin-Tazobactam 3 100 200 .375 gm In Sodium Chloride 0.9% 100 ml @ 25 mls/hr IVPB Q8HR [facility] Rx# :[id number] propofoL 1,000 mg In 279.3 152.25 Empty Bag 1 bag @ Titrate IV .Q0M [facility] Rx#: [id number] Tube Feeding 480 90 Other 90 Output: Urine 350 523 Other: Voiding Method Indwelling Catheter Indwelling Catheter # Bowel Movements 1 ABP, PAP, CO, CI - Last Documented Arterial Blood Pressure 112/68 - Exam PHYSICAL EXAMINATION: Patient is on mechanical ventilator. sedated. HEENT: Normocephalic. Neck is supple. Pupils reactive. Nostrils clear. Oral cavity is moist. Ears reveal no drainage. Neck reveals no JVD, carotid bruits, or thyromegaly. CHEST EXAMINATION: Trachea is central. Symmetrical expansion. Coarse breath sounds and diminished air entry in the lung bases.. CARDIAC: Normal S1, S2 with no gallops. No murmurs ABDOMEN: Soft. Bowel sounds present, non distendedl. No organomegaly. No abdomin al bruits. Extremities: 2+ edema. No clubbing or cyanosis Neurologically pt. is on ventilator. No gross focal deficits noted Skin: No rash or skin lesions. Psychiatric: could not be assesed Musculoskeletal: No joint swelling or deformity. - Labs CBC & Chem 7: 10/11/20 05:00 10/11/20 05:00 Labs: Abnormal Lab Results - Last 24 Hours (Table) 10/08/20 10/09/20 10/09/20 Range/Units 23:48 04:00 04:00 WBC 13.6 H (3.8-10.6) k/uL Hgb 12.9 L (13.0-17.5) gm/dL Neutrophils # 12.1 H (1.3-7.7) k/uL Lymphocytes # 0.2 L (1.0-4.8) k/uL Fibrinogen (200-500) mg/dL D-Dimer (<0.60) mg/L FEU ABG pH (7.35-7.45) ABG pO2 (83-108) mmHg ABG HCO3 (21-25) mmol/L ABG O2 Saturation (94-97) % Chloride 115 H (98-107) mmol/L Carbon Dioxide 18 L (22-30) mmol/L BUN 41 H (9-20) mg/dL Creatinine 1.42 H (0.66-1.25) mg/dL Glucose 168 H (74-99) mg/dL POC Glucose (mg/dL) 173 H (75-99) mg/dL Calcium 6.6 L (8.4-10.2) mg/dL Ferritin 1167.5 H (22.0-322.0) ng/mL Lactate Dehydrogenase 814 H (313-618) U/L C-Reactive Protein 202.1 H (<10.0) mg/L 10/09/20 10/09/20 10/09/20 Range/Units 04:00 05:16 05:35 WBC (3.8-10.6) k/uL Hgb (13.0-17.5) gm/dL Neutrophils # (1.3-7.7) k/uL Lymphocytes # (1.0-4.8) k/uL Fibrinogen 791 H (200-500) mg/dL D-Dimer 0.79 H (<0.60) mg/L FEU ABG pH 7.22 L (7.35-7.45) ABG pO2 63 L (83-108) mmHg ABG HCO3 18 L (21-25) mmol/L ABG O2 Saturation 91.2 L (94-97) % Chloride (98-107) mmol/L Carbon Dioxide (22-30) mmol/L BUN (9-20) mg/dL Creatinine (0.66-1.25) mg/dL Glucose (74-99) mg/dL POC Glucose (mg/dL) 175 H (75-99) mg/dL Calcium (8.4-10.2) mg/dL Ferritin (22.0-322.0) ng/mL Lactate Dehydrogenase (313-618) U/L C-Reactive Protein (<10.0) mg/L 10/09/20 10/09/20 Range/Units 11:52 17:11 WBC (3.8-10.6) k/uL Hgb (13.0-17.5) gm/dL Neutrophils # (1.3-7.7) k/uL Lymphocytes # (1.0-4.8) k/uL Fibrinogen (200-500) mg/dL D-Dimer (<0.60) mg/L FEU ABG pH (7.35-7.45) ABG pO2 (83-108) mmHg ABG HCO3 (21-25) mmol/L ABG O2 Saturation (94-97) % Chloride (98-107) mmol/L Carbon Dioxide (22-30) mmol/L BUN (9-20) mg/dL Creatinine (0.66-1.25) mg/dL Glucose (74-99) mg/dL POC Glucose (mg/dL) 144 H 196 H (75-99) mg/dL Calcium (8.4-10.2) mg/dL Ferritin (22.0-322.0) ng/mL Lactate Dehydrogenase (313-618) U/L C-Reactive Protein (<10.0) mg/L Microbiology - Last 24 Hours (Table) 10/06/20 23:45 Blood Culture - Preliminary Blood No Growth after 48 hours Assessment and Plan Assessment: Acute hypoxic respiratory failure requiring mechanical ventilation Acute bilateral COVID-19 pneumonia Left lower lobe consolidation possible Pneumonia. Sepsis secondary to above Elevated inflammatory markers and pro calcitonin level. Elevated troponin level possible non-ST elevated MO DVT prophylaxis patient is on Lovenox. Plan: Patient will be continued mechanical ventilator and pulmonary is on board. Started on dexamethasone and remdesivir course. Patient was also given 2 units of convalescent plasma. Continue with vitamin supplementation. Patient was given antibiotics in the form of ceftriaxone and azithromycin for possible left lower lobe pneumonia/consolidation. currently started on Zosyn Continue with pressor support. Cardiology is folowing. 2D echocardiogram was ordered. Further recommendations based on clinical course. Prognosis is guarded at this time. Time with Patient: Greater than 30
--- NOTE | 2020-10-11 22:49 | P.PN ---
Subjective Progress Note Date: 10/10/20 Principal diagnosis: Acute hypoxic respiratory failure requiring mechanical ventilation Acute bilateral COVID-19 pneumonia Patient is a 68-year-old male with a past medical history of GIB - duodenal ulcer 2011, hypospadia and hx of smoking initially presented to [facility] due to worsening shortness of breath x1 week and was hypoxic in the ER. Patient was intubated and placed on mechanical ventilator and transferred to [facility] for further management. Patient was tested positive for COVID-19 pneumonia. Chest x-ray showed NG tube in position. There is increased infiltrate and atelectasis in the lung naik compared to exam [address] angiogram of the chest was done in the ER showed no evidence of pulmonary embolism. No aortic dissection or aneurysm. Extensive airspace consolidation and atelectasis in the lower lung naki. Laboratory data showed WBC 17.1, hemoglobin 16.2 and lymphocytes 0.6 ABG showed PCO2 29 and PO2 43 and pH 7.43 Sodium 132, potassium 4.9, BUN 23 and creatinine 0.89 lactic acid level is 2.2 on admission Ferritin 1306.7, LDH 1033, CRP 247.2 and pro calcitonin level is 5.27 Troponin 2.670 and 1.370 10/08/2020 Patient is currently in the MICU and on mechanical ventilator. Currently FiO2 80% and PEEP of 18. Continue Lovenox, Decadron and remdesivir. Patient has been afebrile. Still tachycardic and tachypneic. Chest x-ray showed mid and lower lung airspace disease persists but improving. Patient was started on antibiotics in the form of Zosyn. 2D echocardiogram showed severe cardiomyopathy. Cardiology recommends medical management at this time with aspirin and statins. Cardiology and pulmonary is following. 10/09/2020 Patient is currently in the MICU intubated and sedated. FiO2 50% and PEEP of 18. Chest x-ray showed bilateral lung infiltrates left greater than right. Patient is on Levophed drip as well. Continued on antibiotics in form of Zosyn. Otherwise patient remains on dexamethasone, Lovenox, vitamin supplementation. Pulmonary and cardiology on board. 10/10/2020 Patient is currently in the MICU. Sedated and on mechanical ventilator. Patient is being continued on dexamethasone and Lovenox. Patient was started on metoprolol due to persistent tachycardia. Continued on pressor support. Chest x-ray showed bibasilar reticular nodular infiltrates. Cultures showed no growth. Laboratory data reviewed. WBC 15.9, hemoglobin 13.8 and platelets 536 BUN 51 and creatinine 1.65 Inflammatory markers are still elevated. Patient did complete remdesivir course. Current medications reviewed. Objective - Vital Signs Vital signs: Vital Signs Temp 97.5 F L 10/10/20 16:00 Pulse 112 H 10/10/20 19:15 Resp 33 H 10/10/20 19:15 BP 97/62 10/10/20 19:15 Pulse Ox 93 L 10/10/20 19:15 Intake & Output 10/10/20 10/10/20 10/11/20 06:59 18:59 06:59 Intake Total 6749.197 7592.306 26 Output Total 943 90 5 Balance 668.629 8028.306 21 Weight 76.9 kg 76.9 kg Intake: IV 433 486 26 0.9 Normal saline 33 66 6 pressure bag Piperacillin-Tazobactam 3 200 200 .375 gm In Sodium Chloride 0.9% 100 ml @ 25 mls/hr IVPB Q8HR [facility] Rx# :[id number] Sodium Chloride 0.9% 1, 200 220 20 000 ml @ 20 mls/hr IV . Q24H [facility] Rx#:[id number] Intake, IV Titration 266.172 318.306 0 Amount Cisatracurium 200 mg In 126.84 26.25 0 Sodium Chloride 0.9% 180 ml @ 1 MCG/KG/MIN 4.2 mls /hr IV .Q24H [facility] Rx#: [id number] Norepinephrine 8 mg In 72.132 33.506 Sodium Chloride 0.9% 250 ml @ 0.05 MCG/KG/MIN 6. 773 mls/hr IV .Q24H [facility] Rx#:[id number] propofoL 1,000 mg In 67.2 258.55 Empty Bag 1 bag @ Titrate IV .Q0M [facility] Rx#: [id number] Tube Feeding 600 600 Lipid 20 Sodium Chloride 0.9% 1, 20 000 ml @ 20 mls/hr IV . Q24H [facility] Rx#:[id number] Other 80 60 Output: Urine 243 90 5 Stool 700 Other: Voiding Method Indwelling Catheter Indwelling Catheter ABP, PAP, CO, CI - Last Documented Arterial Blood Pressure 102/60 - Exam PHYSICAL EXAMINATION: Patient is on mechanical ventilator. sedated. HEENT: Normocephalic. Neck is supple. Pupils reactive. Nostrils clear. Oral cavity is moist. Ears reveal no drainage. Neck reveals no JVD, carotid bruits, or thyromegaly. CHEST EXAMINATION: Trachea is central. Symmetrical expansion. Coarse breath sounds and diminished air entry in the lung bases.. CARDIAC: Normal S1, S2 with no gallops. No murmurs ABDOMEN: Soft. Bowel sounds present, non distendedl. No organomegaly. No abdominal bruits. Extremities: 2+ edema. No clubbing or cyanosis Neurologically pt. is on ventilator. No gross focal deficits noted Skin: No rash or skin lesions. Psychiatric: could not be assesed Musculoskeletal: No joint swelling or deformity. - Labs CBC & Chem 7: 10/11/20 05:00 10/11/20 05:00 Labs: Abnormal Lab Results - Last 24 Hours (Table) 10/10/20 10/10/20 10/10/20 Range/Units 00:18 05:00 05:00 WBC 15.9 H (3.8-10.6) k/uL Plt Count 536 H (150-450) k/uL Neutrophils # 14.2 H (1.3-7.7) k/uL Lymphocytes # 0.2 L (1.0-4.8) k/uL Fibrinogen 1009 H (200-500) mg/dL D-Dimer 1.03 H (<0.60) mg/L FEU ABG pH (7.35-7.45) ABG pCO2 (35-45) mmHg ABG pO2 (83-108) mmHg ABG HCO3 (21-25) mmol/L ABG O2 Saturation (94-97) % Chloride (98-107) mmol/L Carbon Dioxide (22-30) mmol/L BUN (9-20) mg/dL Creatinine (0.66-1.25) mg/dL Glucose (74-99) mg/dL POC Glucose (mg/dL) 118 H (75-99) mg/dL Calcium (8.4-10.2) mg/dL Ferritin (22.0-322.0) ng/mL C-Reactive Protein (<10.0) mg/L Total Protein (6.3-8.2) g/dL Albumin (3.5-5.0) g/dL 10/10/20 10/10/20 10/10/20 Range/Units 05:00 05:28 05:52 WBC (3.8-10.6) k/uL Plt Count (150-450) k/uL Neutrophils # (1.3-7.7) k/uL Lymphocytes # (1.0-4.8) k/uL Fibrinogen (200-500) mg/dL D-Dimer (<0.60) mg/L FEU ABG pH 7.15 L* (7.35-7.45) ABG pCO2 52 H (35-45) mmHg ABG pO2 71 L (83-108) mmHg ABG HCO3 18 L (21-25) mmol/L ABG O2 Saturation 93.8 L (94-97) % Chloride 113 H (98-107) mmol/L Carbon Dioxide 18 L (22-30) mmol/L BUN 51 H (9-20) mg/dL Creatinine 1.65 H (0.66-1.25) mg/dL Glucose 140 H (74-99) mg/dL POC Glucose (mg/dL) 125 H (75-99) mg/dL Calcium 6.9 L (8.4-10.2) mg/dL Ferritin 1300.5 H (22.0-322.0) ng/mL C-Reactive Protein 157.0 H (<10.0) mg/L Total Protein 5.2 L (6.3-8.2) g/dL Albumin 2.5 L (3.5-5.0) g/dL 10/10/20 10/10/20 Range/Units 10:11 17:04 WBC (3.8-10.6) k/uL Plt Count (150-450) k/uL Neutrophils # (1.3-7.7) k/uL Lymphocytes # (1.0-4.8) k/uL Fibrinogen (200-500) mg/dL D-Dimer (<0.60) mg/L FEU ABG pH (7.35-7.45) ABG pCO2 (35-45) mmHg ABG pO2 (83-108) mmHg ABG HCO3 (21-25) mmol/L ABG O2 Saturation (94-97) % Chloride (98-107) mmol/L Carbon Dioxide (22-30) mmol/L BUN (9-20) mg/dL Creatinine (0.66-1.25) mg/dL Glucose (74-99) mg/dL POC Glucose (mg/dL) 118 H 157 H (75-99) mg/dL Calcium (8.4-10.2) mg/dL Ferritin (22.0-322.0) ng/mL C-Reactive Protein (<10.0) mg/L Total Protein (6.3-8.2) g/dL Albumin (3.5-5.0) g/dL Microbiology - Last 24 Hours (Table) 10/07/20 19:50 Gram Stain - Final Sputum Sputum Culture - Final 10/06/20 23:45 Blood Culture - Preliminary Blood No Growth after 72 hours Assessment and Plan Assessment: Acute hypoxic respiratory failure requiring mechanical ventilation Acute bilateral COVID-19 pneumonia Left lower lobe consolidation possible Pneumonia. Sepsis secondary to above Elevated inflammatory markers and pro calcitonin level. Elevated troponin level possible non-ST elevated [place] DVT prophylaxis patient is on Lovenox. Plan: Patient will be continued mechanical ventilator and pulmonary is on board. Started on dexamethasone and completed remdesivir course. Patient was also given 2 units of convalescent plasma. Continue with vitamin supplementation. Patient was given antibiotics in the form of ceftriaxone and azithromycin for possible left lower lobe pneumonia/consolidation. currently started on Zosyn Continue with pressor support. Cardiology is folowing. 2D echocardiogram was ordered. Further recommendations based on clinical course. Prognosis is guarded at this time. Time with Patient: Greater than 30
--- NOTE | 2020-10-11 22:53 | P.PN ---
Subjective Progress Note Date: 10/11/20 Principal diagnosis: Acute hypoxic respiratory failure requiring mechanical ventilation Acute bilateral COVID-19 pneumonia Patient is a 68-year-old male with a past medical history of GIB - duodenal ulcer 2011, hypospadia and hx of smoking initially presented to [facility] due to worsening shortness of breath x1 week and was hypoxic in the ER. Patient was intubated and placed on mechanical ventilator and transferred to [facility] for further management. Patient was tested positive for COVID-19 pneumonia. Chest x-ray showed NG tube in position. There is increased infiltrate and atelectasis in the lung naik compared to exam [address] angiogram of the chest was done in the ER showed no evidence of pulmonary embolism. No aortic dissection or aneurysm. Extensive airspace consolidation and atelectasis in the lower lung naik. Laboratory data showed WBC 17.1, hemoglobin 16.2 and lymphocytes 0.6 ABG showed PCO2 29 and PO2 43 and pH 7.43 Sodium 132, potassium 4.9, BUN 23 and creatinine 0.89 lactic acid level is 2.2 on admission Ferritin 1306.7, LDH 1033, CRP 247.2 and pro calcitonin level is 5.27 Troponin 2.670 and 1.370 10/08/2020 Patient is currently in the MICU and on mechanical ventilator. Currently FiO2 80% and PEEP of 18. Continue Lovenox, Decadron and remdesivir. Patient has been afebrile. Still tachycardic and tachypneic. Chest x-ray showed mid and lower lung airspace disease persists but improving. Patient was started on antibiotics in the form of Zosyn. 2D echocardiogram showed severe cardiomyopathy. Cardiology recommends medical management at this time with aspirin and statins. Cardiology and pulmonary is following. 10/09/2020 Patient is currently in the MICU intubated and sedated. FiO2 50% and PEEP of 18. Chest x-ray showed bilateral lung infiltrates left greater than right. Patient is on Levophed drip as well. Continued on antibiotics in form of Zosyn. Otherwise patient remains on dexamethasone, Lovenox, vitamin supplementation. Pulmonary and cardiology on board. 10/10/2020 Patient is currently in the MICU. Sedated and on mechanical ventilator. Patient is being continued on dexamethasone and Lovenox. Patient was started on metoprolol due to persistent tachycardia. Continued on pressor support. Chest x-ray showed bibasilar reticular nodular infiltrates. Cultures showed no growth. Laboratory data reviewed. WBC 15.9, hemoglobin 13.8 and platelets 536 BUN 51 and creatinine 1.65 Inflammatory markers are still elevated. Patient did complete remdesivir course. 10/11/2020 patient remains on her current ventilator. Still requiring pressor support and very minimal urine output. Patient does have regular collecting system. Patient is on Levophed drip and sedated with propofol. Patient was started on bicarb drip due to severe acidosis. Cultures show no growth. Remains on anti biotics now on Zosyn. Patient is on 60% FiO2 and PEEP of 18. Inflammatory markers are still elevated and leukocytosis worsening with WBC count 17.3 and hemoglobin 12.8 neutrophils 14.3 and absolute lymphocyte count BUN 67 creatinine 3.37, calcium 6.3 , Prognosis poor at this time. Current medications reviewed. Objective - Vital Signs Vital signs: Vital Signs Temp 100.7 F H 10/11/20 16:00 Pulse 114 H 10/11/20 19:00 Resp 30 H 10/11/20 19:00 BP 93/54 10/11/20 07:00 Pulse Ox 94 L 10/11/20 19:00 Intake & Output 10/11/20 10/11/20 10/12/20 06:59 18:59 06:59 Intake Total 3420.895 1914.718 30 Output Total 54 110 0 Balance 3366.895 1804.718 30 Weight 85.5 kg Intake: IV 500 356 30 0.9 Normal saline 60 116 10 pressure bag Piperacillin-Tazobactam 3 200 .375 gm In Sodium Chloride 0.9% 100 ml @ 25 mls/hr IVPB Q8HR [facility] Rx# :[id number] Sodium Chloride 0.9% 1, 240 240 20 000 ml @ 20 mls/hr IV . Q24H [facility] Rx#:[id number] Intake, IV Titration 2330.895 688.718 Amount Cisatracurium 200 mg In 0 2.86 Sodium Chloride 0.9% 180 ml @ 1 MCG/KG/MIN 4.2 mls /hr IV .Q24H [facility] Rx#: [id number] Norepinephrine 32 mg In 18.144 Sodium Chloride 0.9% 218 ml @ 0.05 MCG/KG/MIN 1. 802 mls/hr IV .Q24H [facility] Rx#:[id number] Norepinephrine 8 mg In 232.895 411.264 Sodium Chloride 0.9% 250 ml @ 0.05 MCG/KG/MIN 6. 773 mls/hr IV .Q24H [facility] Rx#:[id number] Sodium Chloride 0.9% 1, 999 000 ml @ 999 mls/hr IV . Q1H1M ONE Rx#:[id number] Sodium Chloride 0.9% 1, 999 000 ml @ 999 mls/hr IV . Q1H1M ONE Rx#:[id number] propofoL 1,000 mg In 100 256.45 Empty Bag 1 bag @ Titrate IV .Q0M [facility] Rx#: [id number] Tube Feeding 450 600 Other 140 270 Output: Urine 54 20 0 Stool 90 Other: Voiding Method Indwelling Catheter Indwelling Catheter # Voids 20 ABP, PAP, CO, CI - Last Documented Arterial Blood Pressure 108/61 - Exam PHYSICAL EXAMINATION: Patient is on mechanical ventilator. sedated. HEENT: Normocephalic. Neck is supple. Pupils reactive. Nostrils clear. Oral cavity is moist. Ears reveal no drainage. Neck reveals no JVD, carotid bruits, or thyromegaly. CHEST EXAMINATION: Trachea is central. Symmetrical expansion. Coarse breath sounds and diminished air entry in the lung bases.. CARDIAC: Normal S1, S2 with no gallops. No murmurs ABDOMEN: Soft. Bowel sounds present, non distendedl. No organomegaly. No abdominal bruits. Extremities: 2+ edema. No clubbing or cyanosis Neurologically pt. is on ventilator. No gross focal deficits noted Skin: Mottled skin. Psychiatric: could not be assesed Musculoskeletal: No joint swelling or deformity. - Labs CBC & Chem 7: 10/11/20 05:00 10/11/20 05:00 Labs: Abnormal Lab Results - Last 24 Hours (Table) 10/11/20 10/11/20 10/11/20 Range/Units 00:13 05:00 05:00 WBC 17.3 H (3.8-10.6) k/uL Hgb 12.8 L (13.0-17.5) gm/dL MCHC 30.6 L (31.0-37.0) g/dL Plt Count 593 H (150-450) k/uL Neutrophils # (Manual) 14.30 H (1.3-7.7) k/uL Lymphocytes # (Manual) 0.87 L (1.0-4.8) k/uL Monocytes # (Manual) 1.73 H (0-1.0) k/uL Metamyelocytes # (Man) 0.52 H (0) k/uL D-Dimer 0.83 H (<0.60) mg/L FEU ABG pH (7.35-7.45) ABG pCO2 (35-45) mmHg ABG pO2 (83-108) mmHg ABG HCO3 (21-25) mmol/L ABG Total CO2 (19-24) mmol/L ABG O2 Saturation (94-97) % Chloride (98-107) mmol/L Carbon Dioxide (22-30) mmol/L BUN (9-20) mg/dL Creatinine (0.66-1.25) mg/dL Glucose (74-99) mg/dL POC Glucose (mg/dL) 118 H (75-99) mg/dL Calcium (8.4-10.2) mg/dL Ferritin (22.0-322.0) ng/mL AST (17-59) U/L ALT (4-49) U/L C-Reactive Protein (<10.0) mg/L Total Protein (6.3-8.2) g/dL Albumin (3.5-5.0) g/dL 10/11/20 10/11/20 10/11/20 Range/Units 05:00 05:31 06:09 WBC (3.8-10.6) k/uL Hgb (13.0-17.5) gm/dL MCHC (31.0-37.0) g/dL Plt Count (150-450) k/uL Neutrophils # (Manual) (1.3-7.7) k/uL Lymphocytes # (Manual) (1.0-4.8) k/uL Monocytes # (Manual) (0-1.0) k/uL Metamyelocytes # (Man) (0) k/uL D-Dimer (<0.60) mg/L FEU ABG pH 7.08 L* (7.35-7.45) ABG pCO2 48 H (35-45) mmHg ABG pO2 71 L (83-108) mmHg ABG HCO3 14 L (21-25) mmol/L ABG Total CO2 16 L (19-24) mmol/L ABG O2 Saturation 92.1 L (94-97) % Chloride 116 H (98-107) mmol/L Carbon Dioxide 15 L (22-30) mmol/L BUN 67 H (9-20) mg/dL Creatinine 3.37 H (0.66-1.25) mg/dL Glucose 147 H (74-99) mg/dL POC Glucose (mg/dL) 131 H (75-99) mg/dL Calcium 6.3 L* (8.4-10.2) mg/dL Ferritin 4771.4 H (22.0-322.0) ng/mL AST 638 H (17-59) U/L ALT 296 H (4-49) U/L C-Reactive Protein 153.2 H (<10.0) mg/L Total Protein 4.8 L (6.3-8.2) g/dL Albumin 2.2 L (3.5-5.0) g/dL 10/11/20 10/11/20 Range/Units 12:00 17:09 WBC (3.8-10.6) k/uL Hgb (13.0-17.5) gm/dL MCHC (31.0-37.0) g/dL Plt Count (150-450) k/uL Neutrophils # (Manual) (1.3-7.7) k/uL Lymphocytes # (Manual) (1.0-4.8) k/uL Monocytes # (Manual) (0-1.0) k/uL Metamyelocytes # (Man) (0) k/uL D-Dimer (<0.60) mg/L FEU ABG pH (7.35-7.45) ABG pCO2 (35-45) mmHg ABG pO2 (83-108) mmHg ABG HCO3 (21-25) mmol/L ABG Total CO2 (19-24) mmol/L ABG O2 Saturation (94-97) % Chloride (98-107) mmol/L Carbon Dioxide (22-30) mmol/L BUN (9-20) mg/dL Creatinine (0.66-1.25) mg/dL Glucose (74-99) mg/dL POC Glucose (mg/dL) 165 H 245 H (75-99) mg/dL Calcium (8.4-10.2) mg/dL Ferritin (22.0-322.0) ng/mL AST (17-59) U/L ALT (4-49) U/L C-Reactive Protein (<10.0) mg/L Total Protein (6.3-8.2) g/dL Albumin (3.5-5.0) g/dL Microbiology - Last 24 Hours (Table) 10/06/20 23:45 Blood Culture - Preliminary Blood No Growth after 96 hours Assessment and Plan Assessment: Acute hypoxic respiratory failure requiring mechanical ventilation Acute bilateral COVID-19 pneumonia Left lower lobe consolidation possible Pneumonia. Sepsis secondary to above Acute kidney injury secondary ATN Elevated inflammatory markers and pro calcitonin level. Elevated troponin level possible non-ST elevated [place] DVT prophylaxis patient is on Lovenox. Plan: Patient will be continued mechanical ventilator and pulmonary is on board. Started on dexamethasone and completed remdesivir course. Patient was also given 2 units of convalescent plasma. Continue with vitamin supplementation. Patient was given antibiotics in the form of ceftriaxone and azithromycin for possible left lower lobe pneumonia/consolidation. currently started on Zosyn Continue with pressor support.Patient has mottled skin and very minimal urine output. Cardiology is folowing. Further recommendations based on clinical course. Prognosis is poor at this time. Time with Patient: Greater than 30
[2020-10-12 00:08] LABS: Glucose,Whole Blood 211 mg/dL (75-99)
[2020-10-12] MEDS: ARTIFICIAL TEARS-HYPROMELLOSE DROPS 15 ML BTL BOTH EYES SCH ×6 (00:31→20:49)
[2020-10-12] MEDS: INSULIN ASPART (NovoLOG) 100 UNIT/ML VIAL SQ SCH ×6 (00:31→20:40)
[2020-10-12 01:20] LABS: ABG Base Excess -11.8 mmol/L; ABG HCO3 17 mmol/L (21-25); ABG Oxygen Saturation 84.9 % (94-97); ABG PCO2 47 mmHg (35-45); ABG TCO2 18 mmol/L (19-24); Allen Test Performed? Yes
[2020-10-12 01:23] LABS: ABG PH 7.16 (7.35-7.45); ABG PO2 56 mmHg (83-108)
--- NOTE | 2020-10-12 01:46 | XR ---
EXAM: XR Chest, 1 View CLINICAL HISTORY: Dyspnea. Altered status. TECHNIQUE: Frontal view of the chest. COMPARISON: 10/11/2020, earlier study. FINDINGS: Lungs: Diffuse patchy airspace disease throughout both lungs suggestive of atypical pneumonias, unchanged. Pleural space: Moderate right pleural effusion and small to moderate left pleural effusion. No pneumothorax. Heart: Cardiomegaly per Mediastinum: Unremarkable. Bones/joints: Osteopenia. Tubes, lines and devices: Endotracheal tube is noted in place approximately 3 cm above the aman, in good position per NG tube is noted in place with its tip below the diaphragm in good position. Left internal jugular catheter is noted in place with its tip at the distal superior vena cava. IMPRESSION: 1. No significant change from the earlier study. 2. Findings suggestive of diffuse atypical pneumonia such as Covid-19 pneumonia. 3. Bilateral pleural effusions. 4. Cardiomegaly.
[2020-10-12] MEDS: FUROSEMIDE 100 MG in SODIUM CHLORIDE 0.9% 90 ML IV SCH ×3 (02:55→20:48)
[2020-10-12 03:04] VITALS: RESP 30
[2020-10-12] MEDS: DEXTROSE 5% IN WATER 1,000 ML with SODIUM BICARB (1 MEQ/ML) 150 ML IV SCH ×2 (03:06→17:04)
[2020-10-12 05:37] LABS: Glucose,Whole Blood 231 mg/dL (75-99)
[2020-10-12 05:59] LABS: ABG Base Excess -9.5 mmol/L; ABG HCO3 19 mmol/L (21-25); ABG Oxygen Saturation 90.5 % (94-97); ABG PCO2 52 mmHg (35-45); ABG PO2 71 mmHg (83-108); Allen Test Performed? Yes
[2020-10-12 06:07] LABS: ABG PH 7.18 (7.35-7.45)
[2020-10-12 07:29] LABS: HCT 34.5 % (39.0-53.0); HGB 11.4 gm/dL (13.0-17.5); MCH 28.7 pg (25.0-35.0); MCHC 33.1 g/dL (31.0-37.0); MCV 86.6 fL (80.0-100.0); Mean Platelet Volume 8.1; Platelet Count 496 k/uL (150-450); Poikilocytosis Slight; RBC 3.98 m/uL (4.30-5.90); RDW 14.5 % (11.5-15.5)
[2020-10-12 07:42] LABS: Albumin 2.5 g/dL (3.5-5.0); C Reactive Protein 78.1 mg/L (<10.0); Potassium 4.8 mmol/L (3.5-5.1); Total Bilirubin 0.6 mg/dL (0.2-1.3); Total Protein 5.6 g/dL (6.3-8.2)
[2020-10-12 07:58] LABS: Calcium 6.2 mg/dL (8.4-10.2)
[2020-10-12] MEDS: ZINC SULFATE 220 MG CAP PO SCH ×2 (07:59→10:36)
[2020-10-12] MEDS: FAMOTIDINE 20 MG/2 ML VIAL IV SCH ×2 (08:02→10:38)
[2020-10-12] MEDS: ASPIRIN 81 MG PO SCH ×2 (08:02→10:37)
[2020-10-12] MEDS: ASCORBIC ACID 500 MG TAB PO SCH ×3 (08:02→21:39)
[2020-10-12] MEDS: CHLORHEXIDINE GLUCONATE 15 ML CUP MUCOUS MEM SCH ×2 (08:03→21:39)
[2020-10-12] MEDS: DEXAMETHASONE SOD PHOSPHATE 10 MG/ML 1 ML VIAL IV SCH (08:03)
[2020-10-12] MEDS: PIPERACILLIN-TAZOBACTAM 3.375 GM in SODIUM CHLORIDE 0.9% 100 ML IVPB SCH ×2 (08:04→21:39)
[2020-10-12] MEDS: NOREPINEPHRINE 32 MG in SODIUM CHLORIDE 0.9% 218 ML IV SCH ×2 (08:05→17:16)
[2020-10-12 08:09] LABS: Band Neutrophils % 2 %; Lymphocytes # (M) 0.59 k/uL (1.0-4.8); Metamyelocytes # (M) 0.59 k/uL (0); Metamyelocytes % 3 %; Monocytes # (M) 1.18 k/uL (0-1.0); Myelocytes # (M) 0.59 k/uL (0); Myelocytes % 3 %; Neutrophils % (M) 84 %; Nucleated Red Blood Cells 2 /100 WBC (0-0); Total Cells Counted 200; WBC 19.7 k/uL (3.8-10.6)
[2020-10-12 08:10] LABS: Poikilocytosis (M) Present
[2020-10-12 08:14] LABS: Glucose,Whole Blood 215 mg/dL (75-99)
--- NOTE | 2020-10-12 08:45 | P.PN ---
Subjective Progress Note Date: 10/12/20 Principal diagnosis: Acute coronary syndrome This is a 70-year-old gentleman who was admitted to the hospital with COVID-19 pneumonia complicated by sepsis and also myocarditis. The patient was seen today September 112020. Unfortunately he is not doing well. He is more tachycardic and more hypotensive. He is requiring higher doses of norepinephrine. The chest x-ray did not show any improvement. The kidney function is worse. The patient is in multi-organ failure. It would be a discussion with the family regarding discomfort measurements. The echo showed severe cardiomyopathy. With the above, we'll follow-up with the patient on when necessary case Objective - Vital Signs Vital signs: Vital Signs Temp 100.8 F H 10/12/20 08:00 Pulse 112 H 10/12/20 08:15 Resp 30 H 10/12/20 08:00 BP 93/54 10/11/20 07:00 Pulse Ox 93 L 10/12/20 08:15 Intake & Output 10/11/20 10/12/20 10/12/20 18:59 06:59 18:59 Intake Total 7848.320 2149.219 245.621 Output Total 110 40 0 Balance 9461.127 3426.219 245.621 Weight 86.4 kg Intake: IV 356 360 156 0.9 Normal saline 116 120 16 pressure bag Piperacillin-Tazobactam 3 100 .375 gm In Sodium Chloride 0.9% 100 ml @ 25 mls/hr IVPB Q8HR [facility] Rx# :[id number] Sodium Chloride 0.9% 1, 240 240 40 000 ml @ 20 mls/hr IV . Q24H [facility] Rx#:[id number] Intake, IV Titration 688.718 438.219 89.621 Amount Cisatracurium 200 mg In 2.86 Sodium Chloride 0.9% 180 ml @ 1 MCG/KG/MIN 4.2 mls /hr IV .Q24H [facility] Rx#: [id number] Norepinephrine 32 mg In 18.144 162.269 26.981 Sodium Chloride 0.9% 218 ml @ 0.05 MCG/KG/MIN 1. 802 mls/hr IV .Q24H [facility] Rx#:[id number] Norepinephrine 8 mg In 411.264 Sodium Chloride 0.9% 250 ml @ 0.05 MCG/KG/MIN 6. 773 mls/hr IV .Q24H [facility] Rx#:[id number] propofoL 1,000 mg In 256.45 275.95 62.64 Empty Bag 1 bag @ Titrate IV .Q0M [facility] Rx#: [id number] Tube Feeding 600 300 Other 270 60 Output: Urine 20 0 0 Stool 90 40 Other: Voiding Method Indwelling Catheter Indwelling Catheter # Voids 20 ABP, PAP, CO, CI - Last Documented Arterial Blood Pressure 129/68 - Constitutional General appearance: Present: no acute distress - Labs CBC & Chem 7: 10/12/20 07:12 10/12/20 07:12 Labs: Abnormal Lab Results - Last 24 Hours (Table) 10/11/20 10/11/20 10/11/20 Range/Units 05:00 12:00 17:09 WBC (3.8-10.6) k/uL RBC (4.30-5.90) m/uL Hgb (13.0-17.5) gm/dL Hct (39.0-53.0) % Plt Count (150-450) k/uL Neutrophils # (Manual) (1.3-7.7) k/uL Lymphocytes # (Manual) (1.0-4.8) k/uL Monocytes # (Manual) (0-1.0) k/uL Metamyelocytes # (Man) (0) k/uL Myelocytes # (Manual) (0) k/uL Nucleated RBCs (0-0) /100 WBC D-Dimer (<0.60) mg/L FEU ABG pH (7.35-7.45) ABG pCO2 (35-45) mmHg ABG pO2 (83-108) mmHg ABG HCO3 (21-25) mmol/L ABG Total CO2 (19-24) mmol/L ABG O2 Saturation (94-97) % Chloride (98-107) mmol/L Carbon Dioxide (22-30) mmol/L BUN (9-20) mg/dL Creatinine (0.66-1.25) mg/dL Glucose (74-99) mg/dL POC Glucose (mg/dL) 165 H 245 H (75-99) mg/dL Calcium (8.4-10.2) mg/dL Ferritin 4771.4 H (22.0-322.0) ng/mL AST (17-59) U/L ALT (4-49) U/L C-Reactive Protein (<10.0) mg/L Total Protein (6.3-8.2) g/dL Albumin (3.5-5.0) g/dL 10/11/20 10/12/20 10/12/20 Range/Units 21:10 00:04 01:15 WBC (3.8-10.6) k/uL RBC (4.30-5.90) m/uL Hgb (13.0-17.5) gm/dL Hct (39.0-53.0) % Plt Count (150-450) k/uL Neutrophils # (Manual) (1.3-7.7) k/uL Lymphocytes # (Manual) (1.0-4.8) k/uL Monocytes # (Manual) (0-1.0) k/uL Metamyelocytes # (Man) (0) k/uL Myelocytes # (Manual) (0) k/uL Nucleated RBCs (0-0) /100 WBC D-Dimer (<0.60) mg/L FEU ABG pH 7.16 L* (7.35-7.45) ABG pCO2 47 H (35-45) mmHg ABG pO2 56 L* (83-108) mmHg ABG HCO3 17 L (21-25) mmol/L ABG Total CO2 18 L (19-24) mmol/L ABG O2 Saturation 84.9 L (94-97) % Chloride (98-107) mmol/L Carbon Dioxide (22-30) mmol/L BUN (9-20) mg/dL Creatinine (0.66-1.25) mg/dL Glucose (74-99) mg/dL POC Glucose (mg/dL) 194 H 211 H (75-99) mg/dL Calcium (8.4-10.2) mg/dL Ferritin (22.0-322.0) ng/mL AST (17-59) U/L ALT (4-49) U/L C-Reactive Protein (<10.0) mg/L Total Protein (6.3-8.2) g/dL Albumin (3.5-5.0) g/dL 10/12/20 10/12/20 10/12/20 Range/Units 05:33 05:50 07:12 WBC 19.7 H (3.8-10.6) k/uL RBC 3.98 L (4.30-5.90) m/uL Hgb 11.4 L (13.0-17.5) gm/dL Hct 34.5 L (39.0-53.0) % Plt Count 496 H (150-450) k/uL Neutrophils # (Manual) 16.90 H (1.3-7.7) k/uL Lymphocytes # (Manual) 0.59 L (1.0-4.8) k/uL Monocytes # (Manual) 1.18 H (0-1.0) k/uL Metamyelocytes # (Man) 0.59 H (0) k/uL Myelocytes # (Manual) 0.59 H (0) k/uL Nucleated RBCs 2 H (0-0) /100 WBC D-Dimer (<0.60) mg/L FEU ABG pH 7.18 L* (7.35-7.45) ABG pCO2 52 H (35-45) mmHg ABG pO2 71 L (83-108) mmHg ABG HCO3 19 L (21-25) mmol/L ABG Total CO2 (19-24) mmol/L ABG O2 Saturation 90.5 L (94-97) % Chloride (98-107) mmol/L Carbon Dioxide (22-30) mmol/L BUN (9-20) mg/dL Creatinine (0.66-1.25) mg/dL Glucose (74-99) mg/dL POC Glucose (mg/dL) 231 H (75-99) mg/dL Calcium (8.4-10.2) mg/dL Ferritin (22.0-322.0) ng/mL AST (17-59) U/L ALT (4-49) U/L C-Reactive Protein (<10.0) mg/L Total Protein (6.3-8.2) g/dL Albumin (3.5-5.0) g/dL 10/12/20 10/12/20 10/12/20 Range/Units 07:12 07:12 08:12 WBC (3.8-10.6) k/uL RBC (4.30-5.90) m/uL Hgb (13.0-17.5) gm/dL Hct (39.0-53.0) % Plt Count (150-450) k/uL Neutrophils # (Manual) (1.3-7.7) k/uL Lymphocytes # (Manual) (1.0-4.8) k/uL Monocytes # (Manual) (0-1.0) k/uL Metamyelocytes # (Man) (0) k/uL Myelocytes # (Manual) (0) k/uL Nucleated RBCs (0-0) /100 WBC D-Dimer 0.98 H (<0.60) mg/L FEU ABG pH (7.35-7.45) ABG pCO2 (35-45) mmHg ABG pO2 (83-108) mmHg ABG HCO3 (21-25) mmol/L ABG Total CO2 (19-24) mmol/L ABG O2 Saturation (94-97) % Chloride 110 H (98-107) mmol/L Carbon Dioxide 19 L (22-30) mmol/L BUN 87 H (9-20) mg/dL Creatinine 5.37 H (0.66-1.25) mg/dL Glucose 222 H (74-99) mg/dL POC Glucose (mg/dL) 215 H (75-99) mg/dL Calcium 6.2 L* (8.4-10.2) mg/dL Ferritin (22.0-322.0) ng/mL AST 1463 H (17-59) U/L ALT 737 H (4-49) U/L C-Reactive Protein 78.1 H (<10.0) mg/L Total Protein 5.6 L (6.3-8.2) g/dL Albumin 2.5 L (3.5-5.0) g/dL Microbiology - Last 24 Hours (Table) 10/06/20 23:45 Blood Culture - Preliminary Blood No Growth after 120 hours Assessment and Plan Assessment: Assessment #1 acute hypoxic respiratory failure #2 pneumonia related to COVID-19 infection #3 severe cardiomyopathy #4 myocarditis #5 acute renal failure #6 multi-organ failure Plan #1 cardiac-boyce we'll continue the current medical regimen #2 very poor prognosis #3 we will follow-up with the patient on when necessary case
[2020-10-12] MEDS ORDERED: ENOXAPARIN 40 MG/0.4 ML SYRINGE SQ SCH (09:00)
--- NOTE | 2020-10-12 10:20 | XR ---
EXAMINATION TYPE: XR abdomen 1V DATE OF EXAM: 10/12/2020 10:15 AM CLINICAL HISTORY: Distended belly. Dark particles and OG tube TECHNIQUE: Single upright KUB image of the abdomen is obtained. COMPARISON: None. FINDINGS: Orogastric tube terminates in the gastric antrum below diaphragm. Right greater than left b ibasilar opacities. Possibility of bowel gas. Visualized gas seen in nondistended loops. No pneumoper itoneum. Old posterior lateral right mid to lower rib fractures. Underlying scoliosis. IMPRESSION: Overall nonspecific bowel gas pattern.
[2020-10-12] MEDS: SODIUM BICARBONATE TAB 650 MG TAB PO SCH ×2 (10:37→21:40)
--- NOTE | 2020-10-12 11:27 | P.PN ---
Subjective Progress Note Date: 10/12/20 Principal diagnosis: CoVID 19 pneumonitis This is a 68-year-old male patient, essentially negative medical history, who came into [facility] with worsening shortness of breath and the patient was found to have bilateral pneumonia and further investigation confirmed the pr esence of COVID 19 related pneumonia. The patient was very much hypoxic in the emergency department and the patient was intubated and placed on a mechanical ventilator and following that the patient was transferred to [facility] for further investigation. At the time of the arrival, the patient was already intubated on a mechanical ventilator. A central line was placed and the left IJ and an art line was also established in the right radial artery. Following that, the patient was kept on a mechanical ventilator sedated with propofol and the current vent setting this morning included an assist-control of 20 and tidal volume of 450 FiO2 of 100% with a PEEP of 10. Morning blood gases showed a pH of 7.39 with a pCO2 of 31 and a pO2 of 49. Based on that, I increased the PEEP up to 14 and the tidal volume to 400s. The rate at 20 for now. The chest x-ray showing diffuse bilateral pulmonary infiltrates. A CT angiogram was in the emergency department and there was no evidence of any pulmonary embolism. The CAT scan also showed extensive airspace consolidation and atelectasis in the lower lung naik. A repeat chest x-ray was done today and it showed extensive airspace disease bilaterally especially in the lower lobes. The patient' the LDH was 891, C-reactive protein is 252, lactic acid was at 2.1. The patient has a known BUN and creatinine. white cell count is at 19.6. The patient has lymphopenia. D-dimer is at 3.68 . Overnight, the patient also had to placed on pressors and the patient is currently on norepinephrine infusion running at 0.1 mcg/kg per minute. The patient is currently receiving a bolus of normal saline 1 L and a maintenance fluid to be normal saline at the rate of 100 mL an hour. Enterofeeding will be also initiated. He had a low-grade fever. No nausea. No vomiting. No emesis. No diarrhea. No abdominal distention. No other comp laints otherwise. There was apparently an elevated troponin from the hospital and repeat troponin levels will be obtained. Echocardiogram will be obtained. The patient is seen today 10/08/2020 in follow-up in the intensive care unit. He remains intubated on the mechanical ventilator. Current settings assist- control 26, tidal volume 400, FiO2 80% and a PEEP of 18. Morning blood gases reveal a P O2 of 95, pCO2 56, pH 7.15. These gases were on 100% FiO2 and a respiratory rate of 20. He remains on to propofol at 50 mcg/kg/m. Norepinephrine at 12 mcg/m. 0.9 normal saline at 100 ML's per hour. He is on Nimbex at 1.5 mcg/kg/m He is being nourished with vital 1.2 at 75 mL every 4 hours with free water flushes. He remains on Lovenox and Decadron. He remains on vitamin supplements. He received a loading dose of Remdesivir. No further Remdesivir planned as he is mechanically ventilated. He is currently afebrile. Tachycardic. Sputum culture pending. Blood culture reveals no growth to date. This x-ray continues to revealed mid and lower lung airspace disease with slight improvement. Echocardiogram reveals moderate to severely impaired left ventricular systolic function with ejection fraction 30-35%. White count 15.1. Hemoglobin 13.6. Lymphocytes 0.5. D-dimer 1.21. Sodium 137. Potassium 4.5. Creatinine 1.09. Ferritin 1412. LDH 747. Troponin 1.02, 0.88. C-reactive protein 368. The patient is seen today 10/09/2020 in follow-up in the intensive care unit. He remains intubated on mechanical ventilator currently on assist control rate of 26, tidal volume 400, FiO2 50% and a PEEP of 18. Blood gases reveal a P O2 of 63, pCO2 44, pH 7.22. Chest x-ray reveals stable bilateral lung infiltrates left greater than right. He is and Brovana 50 mcg/kg/m. Norepinephrine at 5.5 mg/m, 0.9 normal saline at 100 ML's per hour. His paralyzed with Nimbex at 2 mcg/kg/m. Being nourished with vital HP at 150 ML's every 4 hours. Blood and sputum cultures reveal no growth. He has received 2 units of convalescent plasma. White count 13.6. Hemoglobin 12.9. Lymphocytes 0.2. D-dimer 0.79. Sodium 138. Potassium 3.9. Bicarb 18. Creatinine 1.42. Glucose 168. Ferritin 1167. LDH 814. C-reactive protein 202. He remains on dexamethasone, Lovenox, Pepcid, melatonin, vitamin supplements. The patient is seen today 10/10/2020 in follow-up in the intensive care unit. He remains intubated on mechanical ventilator with current settings assist- control with a rate of 26, tidal been 400, 60% FiO2 and a PEEP of 18. Morning blood gases revealed a PaO2 of 71, pCO2 52, pH 7.15. He has been on sodium bicarb tablets 650 mg twice a day. He is on 0.9#20 ML's per hour. Norepinephrine at 1.5 mcg/m. Propofol at 50 mcg/kg/m. Nimbex at 0.5 mcg/kg/m. He is being nourished with vital HP with bolus feedings of 150 ML's every 4 hour with free water flushes. Chest x-ray reveals bibasilar reticular nodular infiltrates. No change compared to previous. Blood culture reveals no growth to date. Sputum culture reveals no growth. White count 15.9. Hemoglobin 13.8. D-dimer 1.03. Sodium 140. Potassium 4.2. Bicarb 18. Creatinine 1.65. Glucose 140. Ferritin 1300. C-reactive protein 157. He remains on dexamethasone, Lovenox, Pepcid, melatonin, vitamin supplements. The patient is seen today 10/11/2020 in follow-up in the intensive care unit. He remains intubated on the mechanical ventilator and not assist-control mode with a rate of 26, tidal been 400, FiO2 60% and a PEEP of 18. Morning blood gases revealed a pO2 of 71, pCO2 40, pH 7.08. He's been initiated on D5W with 3 A of bicarb at 100 ML's per hour. Continued on oral bicarbonate tablets as well. He is paralyzed and Nimbex at 0.5 mcg/kg/m. Sedated with propofol at 45 mcg/kg/m. He is on norepinephrine at 27 mcg/m. He is being nourished with vital AF 1.2 at 150 ML's every 4 hours along with free water flushes. He remains quite acidotic despite additional bicarb. His pressor requirements have increased. He only has Doppler pulses of the lower extremities. Skin is somewhat mottled. All cultures reveal no growth. Sputum culture reveals no growth. He has received 2 units of convalescent plasma. He remains on dexamethasone, Lovenox, Pepcid, melatonin, vitamin supplements. White count 17.3. Hemoglobin 12.8. Platelet count 593. D-dimer 0.83. Sodium 141. Potassium 4.9. Creatinine 3.37. Ferritin 4771. AST 638. ALT 296. C-reactive protein 153. The patient is seen today 10/12/2020 in follow-up in the intensive care unit. He remains intubated on the mechanical ventilator. Currently in assist-control mode at a rate of 30, tidal volume 400, FiO2 80% and a PEEP of 18. Arterial blood gases revealed a pO2 of 71, pCO2 52, pH 7.18. Earlier blood gases on 60% FiO2 revealed a pO2 of 56, pCO2 47, pH 7.16. He remains on a bicarb drip with 3 A and D5W at 100 ML's per hour. Remains on bicarb tablets. He is sedated on propofol at 45 mcg/kg/m. Nimbex at 0.5 mcg/kg/m. Norepinephrine at 35 mcg/m. Being nourished with vital HP 850 ML's every 4 hours with free water flushes. Remains in a positive balance. He was initiated on a Lasix drip at 10 mg per hour as well. White count 19.7. Hemoglobin 11.4. D-dimer 0.98. White count 141. Potassium 4.8. Creatinine 5.37. AST 1400 6D3. ALT 737. Chest x-ray revealed no significant change from earlier study. Consistent with diffuse atypical pneumonia secondary to CoVID 19. Bilateral pleural effusions. Cardiomegaly. NG tube was placed to suction for residuals and there was dark fluid returned. Abdominal x-ray revealed overall nonspecific bowel gas pattern. Sputum cultures reveal no growth. Blood culture revealed no growth. He remains on IV Decadron, Lovenox, Pepcid, melatonin, multiple vitamins. Antibiotics in the form of Zosyn. Objective - Vital Signs Vital signs: Vital Signs Temp 100.8 F H 10/12/20 08:00 Pulse 112 H 10/12/20 10:00 Resp 30 H 10/12/20 10:00 BP 93/54 10/11/20 07:00 Pulse Ox 90 L 10/12/20 10:00 Intake & Output 10/11/20 10/12/20 10/12/20 18:59 06:59 18:59 Intake Total 0408.973 2983.219 491.621 Output Total 110 40 0 Balance 6340.141 0562.219 491.621 Weight 86.4 kg Intake: IV 356 360 202 0.9 Normal saline 116 120 22 pressure bag Piperacillin-Tazobactam 3 100 .375 gm In Sodium Chloride 0.9% 100 ml @ 25 mls/hr IVPB Q8HR MAURISIO Rx# :[id number] Sodium Chloride 0.9% 1, 240 240 80 000 ml @ 20 mls/hr IV . Q24H MAURISIO Rx#:[id number] Intake, IV Titration 688.718 438.219 289.621 Amount Cisatracurium 200 mg In 2.86 Sodium Chloride 0.9% 180 ml @ 1 MCG/KG/MIN 4.2 mls /hr IV .Q24H MAURISIO Rx#: [id number] Dextrose 5% in Water 1, 200 000 ml @ 100 mls/hr IV . [id number] MAURISIO with Sodium Bicarb (1 Meq/ml) 150 ml Rx#:[id number] Norepinephrine 32 mg In 18.144 162.269 26.981 Sodium Chloride 0.9% 218 ml @ 0.05 MCG/KG/MIN 1. 802 mls/hr IV .Q24H MAURISIO Rx#:[id number] Norepinephrine 8 mg In 411.264 Sodium Chloride 0.9% 250 ml @ 0.05 MCG/KG/MIN 6. 773 mls/hr IV .Q24H [facility]URISIO Rx#:[id number] propofoL 1,000 mg In 256.45 275.95 62.64 Empty Bag 1 bag @ Titrate IV .Q0M MAURISIO Rx#: [id number] Tube Feeding 600 300 Other 270 60 Output: Urine 20 0 0 Stool 90 40 Other: Voiding Method Indwelling Catheter Indwelling Catheter Indwelling Catheter # Voids 20 ABP, PAP, CO, CI - Last Documented Arterial Blood Pressure 111/62 - Exam Gen. appearance: Reveals a 70-year-old male patient, intubated on mechanical ventilator. Sedated on propofol. Paralyzed with Nimbex. The patient is synchronous with the mechanical ventilator. Head exam was generally normal. There was no scleral icterus or corneal arcus. Mucous membranes were moist. Neck was supple and without jugular venous distension, thyromegaly, or carotid bruits. Carotids were easily palpable bilaterally. There was no adenopathy. The patient has orogastric and orotracheal tube and both of them are in place. Lungs sounds are diminished and the patient has crackles in the lung bases bilaterally. Cardiac exam revealed the PMI to be normally situated and sized. The rhythm was regular and no extrasystoles were noted during several minutes of auscultation. The first and second heart sounds were normal and physiologic splitting of the second heart sound was noted. There were no murmurs, rubs, clicks, or gallops. Abdominal exam revealed normal bowel sounds. The abdomen was soft, non-tender, and without masses, organomegaly, or appreciable enlargement of the abdominal aorta. Examination of the extremities revealed easily palpable radial, femoral and pedal pulses. There was no cyanosis, clubbing or edema. Examination of the skin revealed no evidence of significant rashes, suspicious appearing nevi or other concerning lesions. Neurologically the patient is sedated, comfortable, withdraws to painful stimulation. Pupils are equal and reactive to light. - Labs CBC & Chem 7: 10/12/20 07:12 10/12/20 07:12 Labs: Abnormal Lab Results - Last 24 Hours (Table) 10/11/20 10/11/20 10/11/20 Range/Units 05:00 12:00 17:09 WBC (3.8-10.6) k/uL RBC (4.30-5.90) m/uL Hgb (13.0-17.5) gm/dL Hct (39.0-53.0) % Plt Count (150-450) k/uL Neutrophils # (Manual) (1.3-7.7) k/uL Lymphocytes # (Manual) (1.0-4.8) k/uL Monocytes # (Manual) (0-1.0) k/uL Metamyelocytes # (Man) (0) k/uL Myelocytes # (Manual) (0) k/uL Nucleated RBCs (0-0) /100 WBC D-Dimer (<0.60) mg/L FEU ABG pH (7.35-7.45) ABG pCO2 (35-45) mmHg ABG pO2 (83-108) mmHg ABG HCO3 (21-25) mmol/L ABG Total CO2 (19-24) mmol/L ABG O2 Saturation (94-97) % Chloride (98-107) mmol/L Carbon Dioxide (22-30) mmol/L BUN (9-20) mg/dL Creatinine (0.66-1.25) mg/dL Glucose (74-99) mg/dL POC Glucose (mg/dL) 165 H 245 H (75-99) mg/dL Calcium (8.4-10.2) mg/dL Ferritin 4771.4 H (22.0-322.0) ng/mL AST (17-59) U/L ALT (4-49) U/L C-Reactive Protein (<10.0) mg/L Total Protein (6.3-8.2) g/dL Albumin (3.5-5.0) g/dL 10/11/20 10/12/20 10/12/20 Range/Units 21:10 00:04 01:15 WBC (3.8-10.6) k/uL RBC (4.30-5.90) m/uL Hgb (13.0-17.5) gm/dL Hct (39.0-53.0) % Plt Count (150-450) k/uL Neutrophils # (Manual) (1.3-7.7) k/uL Lymphocytes # (Manual) (1.0-4.8) k/uL Monocytes # (Manual) (0-1.0) k/uL Metamyelocytes # (Man) (0) k/uL Myelocytes # (Manual) (0) k/uL Nucleated RBCs (0-0) /100 WBC D-Dimer (<0.60) mg/L FEU ABG pH 7.16 L* (7.35-7.45) ABG pCO2 47 H (35-45) mmHg ABG pO2 56 L* (83-108) mmHg ABG HCO3 17 L (21-25) mmol/L ABG Total CO2 18 L (19-24) mmol/L ABG O2 Saturation 84.9 L (94-97) % Chloride (98-107) mmol/L Carbon Dioxide (22-30) mmol/L BUN (9-20) mg/dL Creatinine (0.66-1.25) mg/dL Glucose (74-99) mg/dL POC Glucose (mg/dL) 194 H 211 H (75-99) mg/dL Calcium (8.4-10.2) mg/dL Ferritin (22.0-322.0) ng/mL AST (17-59) U/L ALT (4-49) U/L C-Reactive Protein (<10.0) mg/L Total Protein (6.3-8.2) g/dL Albumin (3.5-5.0) g/dL 10/12/20 10/12/20 10/12/20 Range/Units 05:33 05:50 07:12 WBC 19.7 H (3.8-10.6) k/uL RBC 3.98 L (4.30-5.90) m/uL Hgb 11.4 L (13.0-17.5) gm/dL Hct 34.5 L (39.0-53.0) % Plt Count 496 H (150-450) k/uL Neutrophils # (Manual) 16.90 H (1.3-7.7) k/uL Lymphocytes # (Manual) 0.59 L (1.0-4.8) k/uL Monocytes # (Manual) 1.18 H (0-1.0) k/uL Metamyelocytes # (Man) 0.59 H (0) k/uL Myelocytes # (Manual) 0.59 H (0) k/uL Nucleated RBCs 2 H (0-0) /100 WBC D-Dimer (<0.60) mg/L FEU ABG pH 7.18 L* (7.35-7.45) ABG pCO2 52 H (35-45) mmHg ABG pO2 71 L (83-108) mmHg ABG HCO3 19 L (21-25) mmol/L ABG Total CO2 (19-24) mmol/L ABG O2 Saturation 90.5 L (94-97) % Chloride (98-107) mmol/L Carbon Dioxide (22-30) mmol/L BUN (9-20) mg/dL Creatinine (0.66-1.25) mg/dL Glucose (74-99) mg/dL POC Glucose (mg/dL) 231 H (75-99) mg/dL Calcium (8.4-10.2) mg/dL Ferritin (22.0-322.0) ng/mL AST (17-59) U/L ALT (4-49) U/L C-Reactive Protein (<10.0) mg/L Total Protein (6.3-8.2) g/dL Albumin (3.5-5.0) g/dL 10/12/20 10/12/20 10/12/20 Range/Units 07:12 07:12 08:12 WBC (3.8-10.6) k/uL RBC (4.30-5.90) m/uL Hgb (13.0-17.5) gm/dL Hct (39.0-53.0) % Plt Count (150-450) k/uL Neutrophils # (Manual) (1.3-7.7) k/uL Lymphocytes # (Manual) (1.0-4.8) k/uL Monocytes # (Manual) (0-1.0) k/uL Metamyelocytes # (Man) (0) k/uL Myelocytes # (Manual) (0) k/uL Nucleated RBCs (0-0) /100 WBC D-Dimer 0.98 H (<0.60) mg/L FEU ABG pH (7.35-7.45) ABG pCO2 (35-45) mmHg ABG pO2 (83-108) mmHg ABG HCO3 (21-25) mmol/L ABG Total CO2 (19-24) mmol/L ABG O2 Saturation (94-97) % Chloride 110 H (98-107) mmol/L Carbon Dioxide 19 L (22-30) mmol/L BUN 87 H (9-20) mg/dL Creatinine 5.37 H (0.66-1.25) mg/dL Glucose 222 H (74-99) mg/dL POC Glucose (mg/dL) 215 H (75-99) mg/dL Calcium 6.2 L* (8.4-10.2) mg/dL Ferritin (22.0-322.0) ng/mL AST 1463 H (17-59) U/L ALT 737 H (4-49) U/L C-Reactive Protein 78.1 H (<10.0) mg/L Total Protein 5.6 L (6.3-8.2) g/dL Albumin 2.5 L (3.5-5.0) g/dL Microbiology - Last 24 Hours (Table) 10/06/20 23:45 Blood Culture - Preliminary Blood No Growth after 120 hours Assessment and Plan Assessment: 1 Acute bilateral Covid 19 related pneumonia with extensive consolidation and airspace disease bilaterally mainly in the mid and lower lung naik. He did not receive any Remdesivir due to mechanical ventilation. He did receive 2 units of convalescent plasma. Currently on Lovenox, Decadron, Pepcid, melatonin, vitamin supplements. 2 Acute hypoxic respiratory failure secondary to above, requiring intubation mechanical ventilation. Currently sedated on propofol 45 g kilogram per minute. Paralyzed with Nimbex at 0.5 mcg/kg/m 3 Severe respiratory/metabolic acidosis with a pH of 7.18 despite addition of bicarbonate tablets and bicarb drip. 4 Significant hypotension currently on pressors for hemodynamic support, with continued increasing requirements, may need to add vasopressin to norepinephrine 5 Suspect non-STEMI and the patient's troponin from [facility] was at 1.72. The EKG showed no ST segment elevation. There was poor R-wave progression and is sinus tachycardia. Some Q waves over the anterior leads. Repeat cardiac enzymes reveal a troponin of 1.02, 0.88. 6 Cardiomyopathy with severely impaired left ventricular systolic function ejection fraction 30-35%. Currently on a Lasix drip. Poor urine output. 7 Hypospadia and a Govea catheter was established Plan The patient was seen and evaluated by Dr. Dean Chest x-ray, ABGs and labs reviewed Admitted a Lasix drip at 10 mg per hour He remains on sedation and paralytics keep synchronous with the ventilator Remains on pressors Remains on bicarbonate drip and tablets with pH still 7.18 Flat plate of the abdomen revealed nonspecific bowel gas pattern. Prognosis is guarded and poor We will continue to follow and make further recommendations based on his clinical status Critical care time 39 minutes I, the cosigning physician, performed a history & physical examination of the patient. Lungs sounds bibasilar crackles. Maintaining good O2 saturations in the 90s on 80% FiO2 and a PEEP of 18 via the mechanical ventilator. I discussed the assessment and plan of care with my nurse practitioner, Miguelina Robertson. I attest to the above note as dictated by her. Time with Patient: Greater than 30
[2020-10-12 12:17] LABS: Glucose,Whole Blood 237 mg/dL (75-99)
[2020-10-12] MEDS: SODIUM CHLORIDE 0.9% 150 ML with VASOPRESSIN 60 UNIT IV SCH ×6 (13:29→22:40)
[2020-10-12 17:16] LABS: Glucose,Whole Blood 237 mg/dL (75-99)
[2020-10-12] MEDS: CISATRACURIUM 200 MG in SODIUM CHLORIDE 0.9% 180 ML IV SCH (17:17)
[2020-10-12] MEDS: ACETAMINOPHEN TAB 325 MG TAB PO PRN (17:30)
[2020-10-12] MEDS: SODIUM CHLORIDE 0.9% 1,000 ML IV SCH (17:40)
[2020-10-12 20:57] LABS: Glucose,Whole Blood 227 mg/dL (75-99)
[2020-10-12] MEDS: ATORVASTATIN 80 MG TAB PO SCH (21:40)
[2020-10-12] MEDS: MELATONIN 5 MG TABLET PO SCH (21:40)
[2020-10-12 23:41] LABS: Glucose,Whole Blood 203 mg/dL (75-99)
[2020-10-13] MEDS: INSULIN ASPART (NovoLOG) 100 UNIT/ML VIAL SQ SCH (00:05)
[2020-10-13] MEDS: ARTIFICIAL TEARS-HYPROMELLOSE DROPS 15 ML BTL BOTH EYES SCH (00:06)
[2020-10-13 00:14] VITALS: TEMP 99.8
--- NOTE | 2020-10-13 00:17 | P.PN ---
Subjective Progress Note Date: 10/12/20 Principal diagnosis: Acute hypoxic respiratory failure requiring mechanical ventilation Acute bilateral COVID-19 pneumonia Patient is a 68-year-old male with a past medical history of GIB - duodenal ulcer 2011, hypospadia and hx of smoking initially presented to [facility] due to worsening shortness of breath x1 week and was hypoxic in the ER. Patient was intubated and placed on mechanical ventilator and transferred to [facility] for further management. Patient was tested positive for COVID-19 pneumonia. Chest x-ray showed NG tube in position. There is increased infiltrate and atelectasis in the lung naik compared to exam [address] angiogram of the chest was done in the ER showed no evidence of pulmonary embolism. No aortic dissection or aneurysm. Extensive airspace consolidation and atelectasis in the lower lung naik. Laboratory data showed WBC 17.1, hemoglobin 16.2 and lymphocytes 0.6 ABG showed PCO2 29 and PO2 43 and pH 7.43 Sodium 132, potassium 4.9, BUN 23 and creatinine 0.89 lactic acid level is 2.2 on admission Ferritin 1306.7, LDH 1033, CRP 247.2 and pro calcitonin level is 5.27 Troponin 2.670 and 1.370 10/08/2020 Patient is currently in the MICU and on mechanical ventilator. Currently FiO2 80% and PEEP of 18. Continue Lovenox, Decadron and remdesivir. Patient has been afebrile. Still tachycardic and tachypneic. Chest x-ray showed mid and lower lung airspace disease persists but improving. Patient was started on antibiotics in the form of Zosyn. 2D echocardiogram showed severe cardiomyopathy. Cardiology recommends medical management at this time with aspirin and statins. Cardiology and pulmonary is following. 10/09/2020 Patient is currently in the MICU intubated and sedated. FiO2 50% and PEEP of 18. Chest x-ray showed bilateral lung infiltrates left greater than right. Patient is on Levophed drip as well. Continued on antibiotics in form of Zosyn. Otherwise patient remains on dexamethasone, Lovenox, vitamin supplementation. Pulmonary and cardiology on board. 10/10/2020 Patient is currently in the MICU. Sedated and on mechanical ventilator. Patient is being continued on dexamethasone and Lovenox. Patient was started on metoprolol due to persistent tachycardia. Continued on pressor support. Chest x-ray showed bibasilar reticular nodular infiltrates. Cultures showed no growth. Laboratory data reviewed. WBC 15.9, hemoglobin 13.8 and platelets 536 BUN 51 and creatinine 1.65 Inflammatory markers are still elevated. Patient did complete remdesivir course. 10/11/2020 patient remains on her current ventilator. Still requiring pressor support and very minimal urine output. Patient does have regular collecting system. Patient is on Levophed drip and sedated with propofol. Patient was started on bicarb drip due to severe acidosis. Cultures show no growth. Remains on anti biotics now on Zosyn. Patient is on 60% FiO2 and PEEP of 18. Inflammatory markers are still elevated and leukocytosis worsening with WBC count 17.3 and hemoglobin 12.8 neutrophils 14.3 and absolute lymphocyte count BUN 67 creatinine 3.37, calcium 6.3 , Prognosis poor at this time. 10/12/2019 Patient is currently in the MICU. Intubated and on mechanical ventilator. Patient is sedated and also on Esthela Caballero. Patient is requiring pressor support with norepinephrine. Currently on 100% FiO2 and PEEP of 18. ABGs this morning showed pH of 7.18 PCO2 52 and PO2 71 Laboratory showed BUN 87 creatinine 5.37. Patient does have minimal urine output and also has fecal collecting system. WBC 19.7 hemoglobin 11.4 and platelets 496 Patient is on Zosyn. Culture showed no growth. Chest x-ray showed no significant change from the earlier study. Findings suggestive of diffuse atypical pneumonia such as COVID-19 pneumonia. Bilateral pleural effusions. Cardiomegaly. Patient is being continued Lovenox and Pepcid and vitamins. Prognosis is poor at this time. Current medications reviewed. Objective - Vital Signs Vital signs: Vital Signs Temp 101.6 F H 10/12/20 17:00 Pulse 115 H 10/12/20 18:00 Resp 30 H 10/12/20 18:00 BP 93/54 10/11/20 07:00 Pulse Ox 93 L 10/12/20 18:00 Intake & Output 10/12/20 10/12/20 10/13/20 06:59 18:59 06:59 Intake Total 5593.780 9196.008 Output Total 40 0 Balance 8590.661 6770.008 Weight 86.4 kg Intake: IV 360 386 0.9 Normal saline 120 46 pressure bag Piperacillin-Tazobactam 3 100 .375 gm In Sodium Chloride 0.9% 100 ml @ 25 mls/hr IVPB Q8HR [facility] Rx# :[id number] Sodium Chloride 0.9% 1, 240 240 000 ml @ 20 mls/hr IV . Q24H [facility] Rx#:[id number] Intake, IV Titration 354.834 7132.008 Amount Dextrose 5% in Water 1, 800 000 ml @ 100 mls/hr IV . [id number] MAURISIO with Sodium Bicarb (1 Meq/ml) 150 ml Rx#:[id number] Furosemide 100 mg In 92.667 Sodium Chloride 0.9% 90 ml @ 10 MG/HR 10 mls/hr IV .Q10H [facility] Rx#: [id number] Norepinephrine 32 mg In 162.269 162.701 Sodium Chloride 0.9% 218 ml @ 0.05 MCG/KG/MIN 1. 802 mls/hr IV .Q24H [facility] Rx#:[id number] propofoL 1,000 mg In 275.95 162.64 Empty Bag 1 bag @ Titrate IV .Q0M [facility] Rx#: [id number] Tube Feeding 300 300 Other 60 30 Output: Urine 0 0 Stool 40 Other: Voiding Method Indwelling Catheter Indwelling Catheter ABP, PAP, CO, CI - Last Documented Arterial Blood Pressure 108/63 - Exam PHYSICAL EXAMINATION: Patient is on mechanical ventilator. sedated. HEENT: Normocephalic. Neck is supple. Pupils reactive. Nostrils clear. Oral cavity is moist. Ears reveal no drainage. Neck reveals no JVD, carotid bruits, or thyromegaly. CHEST EXAMINATION: Trachea is central. Symmetrical expansion. Coarse breath sounds and diminished air entry in the lung bases.. CARDIAC: Normal S1, S2 with no gallops. No murmurs ABDOMEN: Soft. Bowel sounds present, non distendedl. No organomegaly. No abdominal bruits. Extremities: 2+ edema. No clubbing or cyanosis Neurologically pt. is on ventilator. No gross focal deficits noted Skin: Mottled skin. Psychiatric: could not be assesed Musculoskeletal: No joint swelling or deformity. - Labs CBC & Chem 7: 10/12/20 07:12 10/12/20 07:12 Labs: Abnormal Lab Results - Last 24 Hours (Table) 10/11/20 10/12/20 10/12/20 Range/Units 21:10 00:04 01:15 WBC (3.8-10.6) k/uL RBC (4.30-5.90) m/uL Hgb (13.0-17.5) gm/dL Hct (39.0-53.0) % Plt Count (150-450) k/uL Neutrophils # (Manual) (1.3-7.7) k/uL Lymphocytes # (Manual) (1.0-4.8) k/uL Monocytes # (Manual) (0-1.0) k/uL Metamyelocytes # (Man) (0) k/uL Myelocytes # (Manual) (0) k/uL Nucleated RBCs (0-0) /100 WBC D-Dimer (<0.60) mg/L FEU ABG pH 7.16 L* (7.35-7.45) ABG pCO2 47 H (35-45) mmHg ABG pO2 56 L* (83-108) mmHg ABG HCO3 17 L (21-25) mmol/L ABG Total CO2 18 L (19-24) mmol/L ABG O2 Saturation 84.9 L (94-97) % Chloride (98-107) mmol/L Carbon Dioxide (22-30) mmol/L BUN (9-20) mg/dL Creatinine (0.66-1.25) mg/dL Glucose (74-99) mg/dL POC Glucose (mg/dL) 194 H 211 H (75-99) mg/dL Calcium (8.4-10.2) mg/dL AST (17-59) U/L ALT (4-49) U/L C-Reactive Protein (<10.0) mg/L Total Protein (6.3-8.2) g/dL Albumin (3.5-5.0) g/dL 10/12/20 10/12/20 10/12/20 Range/Units 05:33 05:50 07:12 WBC 19.7 H (3.8-10.6) k/uL RBC 3.98 L (4.30-5.90) m/uL Hgb 11.4 L (13.0-17.5) gm/dL Hct 34.5 L (39.0-53.0) % Plt Count 496 H (150-450) k/uL Neutrophils # (Manual) 16.90 H (1.3-7.7) k/uL Lymphocytes # (Manual) 0.59 L (1.0-4.8) k/uL Monocytes # (Manual) 1.18 H (0-1.0) k/uL Metamyelocytes # (Man) 0.59 H (0) k/uL Myelocytes # (Manual) 0.59 H (0) k/uL Nucleated RBCs 2 H (0-0) /100 WBC D-Dimer (<0.60) mg/L FEU ABG pH 7.18 L* (7.35-7.45) ABG pCO2 52 H (35-45) mmHg ABG pO2 71 L (83-108) mmHg ABG HCO3 19 L (21-25) mmol/L ABG Total CO2 (19-24) mmol/L ABG O2 Saturation 90.5 L (94-97) % Chloride (98-107) mmol/L Carbon Dioxide (22-30) mmol/L BUN (9-20) mg/dL Creatinine (0.66-1.25) mg/dL Glucose (74-99) mg/dL POC Glucose (mg/dL) 231 H (75-99) mg/dL Calcium (8.4-10.2) mg/dL AST (17-59) U/L ALT (4-49) U/L C-Reactive Protein (<10.0) mg/L Total Protein (6.3-8.2) g/dL Albumin (3.5-5.0) g/dL 10/12/20 10/12/20 10/12/20 Range/Units 07:12 07:12 08:12 WBC (3.8-10.6) k/uL RBC (4.30-5.90) m/uL Hgb (13.0-17.5) gm/dL Hct (39.0-53.0) % Plt Count (150-450) k/uL Neutrophils # (Manual) (1.3-7.7) k/uL Lymphocytes # (Manual) (1.0-4.8) k/uL Monocytes # (Manual) (0-1.0) k/uL Metamyelocytes # (Man) (0) k/uL Myelocytes # (Manual) (0) k/uL Nucleated RBCs (0-0) /100 WBC D-Dimer 0.98 H (<0.60) mg/L FEU ABG pH (7.35-7.45) ABG pCO2 (35-45) mmHg ABG pO2 (83-108) mmHg ABG HCO3 (21-25) mmol/L ABG Total CO2 (19-24) mmol/L ABG O2 Saturation (94-97) % Chloride 110 H (98-107) mmol/L Carbon Dioxide 19 L (22-30) mmol/L BUN 87 H (9-20) mg/dL Creatinine 5.37 H (0.66-1.25) mg/dL Glucose 222 H (74-99) mg/dL POC Glucose (mg/dL) 215 H (75-99) mg/dL Calcium 6.2 L* (8.4-10.2) mg/dL AST 1463 H (17-59) U/L ALT 737 H (4-49) U/L C-Reactive Protein 78.1 H (<10.0) mg/L Total Protein 5.6 L (6.3-8.2) g/dL Albumin 2.5 L (3.5-5.0) g/dL 10/12/20 10/12/20 Range/Units 12:16 17:14 WBC (3.8-10.6) k/uL RBC (4.30-5.90) m/uL Hgb (13.0-17.5) gm/dL Hct (39.0-53.0) % Plt Count (150-450) k/uL Neutrophils # (Manual) (1.3-7.7) k/uL Lymphocytes # (Manual) (1.0-4.8) k/uL Monocytes # (Manual) (0-1.0) k/uL Metamyelocytes # (Man) (0) k/uL Myelocytes # (Manual) (0) k/uL Nucleated RBCs (0-0) /100 WBC D-Dimer (<0.60) mg/L FEU ABG pH (7.35-7.45) ABG pCO2 (35-45) mmHg ABG pO2 (83-108) mmHg ABG HCO3 (21-25) mmol/L ABG Total CO2 (19-24) mmol/L ABG O2 Saturation (94-97) % Chloride (98-107) mmol/L Carbon Dioxide (22-30) mmol/L BUN (9-20) mg/dL Creatinine (0.66-1.25) mg/dL Glucose (74-99) mg/dL POC Glucose (mg/dL) 237 H 237 H (75-99) mg/dL Calcium (8.4-10.2) mg/dL AST (17-59) U/L ALT (4-49) U/L C-Reactive Protein (<10.0) mg/L Total Protein (6.3-8.2) g/dL Albumin (3.5-5.0) g/dL Microbiology - Last 24 Hours (Table) 10/06/20 23:45 Blood Culture - Preliminary Blood No Growth after 120 hours Assessment and Plan Assessment: Acute hypoxic respiratory failure requiring mechanical ventilation Acute bilateral COVID-19 pneumonia Left lower lobe consolidation possible Pneumonia. Sepsis secondary to above Acute kidney injury secondary ATN Elevated inflammatory markers and pro calcitonin level. Elevated troponin level possible non-ST elevated MS DVT prophylaxis patient is on Lovenox. Plan: Patient will be continued mechanical ventilator and pulmonary is on board. Started on dexamethasone and completed remdesivir course. Patient was also given 2 units of convalescent plasma. Continue with vitamin supplementation. Patient was given antibiotics in the form of ceftriaxone and azithromycin for possible left lower lobe pneumonia/consolidation. currently started on Zosyn Continue with pressor support.Patient has mottled skin and very minimal urine output. Cardiology is folowing. Further recommendations based on clinical course. Prognosis is poor at this time. Time with Patient: Greater than 30
[2020-10-13 03:02] VITALS: PULSE 104
[2020-10-13] MEDS ORDERED: INSULIN DETEMIR (LEVEMIR) 100 UNIT/ML SYR SQ SCH (09:00)
[2020-10-15 01:39] LABS: LD Isoenzymes 1 24 % (19-38); LD Isoenzymes 2 33 % (30-43); LD Isoenzymes 3 17 % (16-26); LD Isoenzymes 4 10 % (3-12); LD Isoenzymes 5 16 % (3-14); Lactacte Dehydrogenase(LD) ISO 331 U/L (120-250)
--- NOTE | 2020-10-16 12:37 | CDI ---
Documentation Clarification Form Date: 10/16/2020 12:25:40 PM From: Esme Del Rio RN, CCDS Admit Date: 10/06/2020 10:59:00 PM Patient Name: Shaquille Adam Visit Number: [id number] Discharge Date: 10/13/2020 06:30:00 AM ATTENTION: The Clinical Documentation Specialists (CDI) and [facility] Coding Staff appreciate your assistance in clarifying documentation. Please respond to the clarification below the line at the bottom and electronically sign. The CDI & [facility] Coding staff will review the response and follow-up if needed. Please note: Queries are made part of the Legal Health Record. If you have any questions, please contact the author of this message via ITS. Dr. Rachel Figueroa "Significant hypotension currently on pressors for hemodynamic support, with continued increasing requirements, may need to add vasopressin to norepinephrine", is documented and requires further clarification to accurately reflect SOI/ROM. Patient history/risk factors: Covid 19 pneumonia with Sepsis, CARLOS with ATN, NSTEMI, duodenal ulcer Clinical Indicators: 10/11-10/12 Pulmonary progress notes: "Significant hypotension currently on pressors for hemodynamic support, with continued increasing requirements, may need to add vasopressin to norepinephrine." 10/07-10/10 Pulmonary progress note: "Significant hypotension currently pressors for hemodynamic support." 10/07 0845 Vitals: RR 31, B/P 81/57, CVP 11, Spo2 88% on 100% MV Treatment: IV Levophed Gtt titrate for B/P 10/11-10/12 IV Vasopressin Gtt @ 0.03 units/min 10/06-10/09 1L IVF bolus 0.9% NS daily 10/10 2L 0.9% NS IVF Bolus In your professional opinion, can you please further specify the hypotension requiring vasopressors if known? Septic Shock Suspected or known causative organism Any associated organ failure Cardiogenic Shock Cause Hypovolemic Shock Cause Other, please specify Unable to determine (Last Revision: July 2017) Septic Shock MTDD
--- NOTE | 2020-10-26 23:27 | P.DS ---
Providers Date of admission: 10/06/20 22:59 Expected date of discharge: 10/13/20 Attending physician: Jason Oh MD Consults: 10/06/20 22:16 Consult Physician Routine Consulting Provider: Jessica Blood Consult Reason/Comments: icu patient Do you want consulting provider notified?: Yes 10/06/20 22:59 Consult Physician Routine Consulting Provider: David Quezada Consult Reason/Comments: elevated troponin Do you want consulting provider notified?: Yes 10/07/20 03:34 Consult Physician Routine Consulting Provider: Rob Harmon Consult Reason/Comments: hypospadia, unable to insert catheter Do you want consulting provider notified?: Yes, Notify in am Primary care physician: Stated None Hospital Course: diagnosis Acute hypoxic respiratory failure requiring mechanical ventilation Acute bilateral COVID-19 pneumonia Left lower lobe consolidation possible Pneumonia. Sepsis secondary to above Acute kidney injury secondary ATN Elevated inflammatory markers and pro calcitonin level. Elevated troponin level possible non-ST elevated NM DVT prophylaxis patient is on Lovenox. Hospital course Patient is a 68-year-old male with a past medical history of GIB - duodenal ulcer 2011, hypospadia and hx of smoking initially presented to [facility] due to worsening shortness of breath x1 week and was hypoxic in the ER. Patient was intubated and placed on mechanical ventilator and transferred to [facility] for further management. Patient was tested positive for COVID-19 pneumonia. Chest x-ray showed NG tube in position. There is increased infiltrate and atelectasis in the lung naik compared to exam [address] angiogram of the chest was done in the ER showed no evidence of pulmonary embolism. No aortic dissection or aneurysm. Extensive airspace consolidation and atelectasis in the lower lung naik. Laboratory data showed WBC 17.1, hemoglobin 16.2 and lymphocytes 0.6 ABG showed PCO2 29 and PO2 43 and pH 7.43 Sodium 132, potassium 4.9, BUN 23 and creatinine 0.89 lactic acid level is 2.2 on admission Ferritin 1306.7, LDH 1033, CRP 247.2 and pro calcitonin level is 5.27 Troponin 2.670 and 1.370 10/08/2020 Patient is currently in the MICU and on mechanical ventilator. Currently FiO2 80% and PEEP of 18. Continue Lovenox, Decadron and remdesivir. Patient has been afebrile. Still tachycardic and tachypneic. Chest x-ray showed mid and lower lung airspace disease persists but improving. Patient was started on antibiotics in the form of Zosyn. 2D echocardiogram showed severe cardiomyopathy. Cardiology recommends medical management at this time with aspirin and statins. Cardiology and pulmonary is following. 10/09/2020 Patient is currently in the MICU intubated and sedated. FiO2 50% and PEEP of 18. Chest x-ray showed bilateral lung infiltrates left greater than right. Patient is on Levophed drip as well. Continued on antibiotics in form of Zosyn. Otherwise patient remains on dexamethasone, Lovenox, vitamin supplementation. Pulmonary and cardiology on board. 10/10/2020 Patient is currently in the MICU. Sedated and on mechanical ventilator. Patient is being continued on dexamethasone and Lovenox. Patient was started on metoprolol due to persistent tachycardia. Continued on pressor support. Chest x-ray showed bibasilar reticular nodular infiltrates. Cultures showed no growth. Laboratory data reviewed. WBC 15.9, hemoglobin 13.8 and platelets 536 BUN 51 and creatinine 1.65 Inflammatory markers are still elevated. Patient did complete remdesivir course. 10/11/2020 patient remains on her current ventilator. Still requiring pressor support and very minimal urine output. Patient does have regular collecting system. Patient is on Levophed drip and sedated with propofol. Patient was started on bicarb drip due to severe acidosis. Cultures show no growth. Remains on antibiotics now on Zosyn. Patient is on 60% FiO2 and PEEP of 18. Inflammatory markers are still elevated and leukocytosis worsening with WBC count 17.3 and hemoglobin 12.8 neutrophils 14.3 and absolute lymphocyte count BUN 67 creatinine 3.37, calcium 6.3 , Prognosis poor at this time. 10/12/2019 Patient is currently in the MICU. Intubated and on mechanical ventilator. Patient is sedated and also on Esthela Caballero. Patient is requiring pressor support with norepinephrine. Currently on 100% FiO2 and PEEP of 18. ABGs this morning showed pH of 7.18 PCO2 52 and PO2 71 Laboratory showed BUN 87 creatinine 5.37. Patient does have minimal urine output and also has fecal collecting system. WBC 19.7 hemoglobin 11.4 and platelets 496 Patient is on Zosyn. Culture showed no growth. Chest x-ray showed no significant change from the earlier study. Findings suggestive of diffuse atypical pneumonia such as COVID-19 pneumonia. Bilateral pleural effusions. Cardiomegaly. Patient is being continued Lovenox and Pepcid and vitamins. Prognosis is poor at this time. 10/13/2020 Patient's breathing status worsened overnight. Family has been notified and given the option to come to the hospital to see the patient. Patient's requested to call her back if the clinical status changes. Patient on 10/13/2020 at 3:13 AM. Family has been notified. Patient Condition at Discharge: Undetermined Plan - Discharge Summary Discharge Rx Participant: Yes New Discharge Prescriptions: No Action Lansoprazole [Prevacid] 15 mg PO DAILY Discharge Medication List Lansoprazole [Prevacid] 15 mg PO DAILY 10/06/20 [History] Follow up Appointment(s)/Referral(s): None,Stated [Primary Care Provider] - 1-2 days Discharge Disposition: - Preliminary Cause of Preliminary Cause of : Acute hypoxic respiratory failure secondary to Covid pneumonia.
== END 2020-10-13 06:30 | disposition expired | DRG 870 ==
LOC: EC 21:29 → 2SICU 22:59
PROVIDERS: ADMIT Internal Medicine; ATTEND Internal Medicine
PROC: 0BH17EZ Insertion of Endotracheal Airway into Trachea, Via Natural or Artificial Opening (ICD-10-PCS; principal; 2020-10-06)
PROC: 5A1955Z Respiratory Ventilation, Greater than 96 Consecutive Hours (ICD-10-PCS; principal; 2020-10-06)
PROC: 02HV33Z Insertion of Infusion Device into Superior Vena Cava, Percutaneous Approach (ICD-10-PCS; 2020-10-06)
PROC: 03HY32Z Insertion of Monitoring Device into Upper Artery, Percutaneous Approach (ICD-10-PCS; 2020-10-07)
PROC: 4A133B1 Monitoring of Arterial Pressure, Peripheral, Percutaneous Approach (ICD-10-PCS; 2020-10-07)
PROC: 4A133J1 Monitoring of Arterial Pulse, Peripheral, Percutaneous Approach (ICD-10-PCS; 2020-10-07)
PROC: XW13325 Transfusion of Convalescent Plasma (Nonautologous) into Peripheral Vein, Percutaneous Approach, New Technology Group 5 (ICD-10-PCS; 2020-10-07)
PROC: XW033E5 Introduction of Remdesivir Anti-infective into Peripheral Vein, Percutaneous Approach, New Technology Group 5 (ICD-10-PCS; 2020-10-07)
PROC: 3E033XZ Introduction of Vasopressor into Peripheral Vein, Percutaneous Approach (ICD-10-PCS; 2020-10-07)
DX: A41.89 Other specified sepsis (principal); J96.01 Acute respiratory failure with hypoxia; U07.1 COVID-19; J12.89 Other viral pneumonia; N17.0 Acute kidney failure with tubular necrosis; I21.4 Non-ST elevation (NSTEMI) myocardial infarction; J12.82 Pneumonia due to coronavirus disease 2019; R65.21 Severe sepsis with septic shock; I50.23 Acute on chronic systolic (congestive) heart failure; I42.9 Cardiomyopathy, unspecified; J90 Pleural effusion, not elsewhere classified; J98.11 Atelectasis; E87.4 Mixed disorder of acid-base balance; I24.9 Acute ischemic heart disease, unspecified; I95.9 Hypotension, unspecified; N35.911 Unspecified urethral stricture, male, meatal; I51.4 Myocarditis, unspecified; D72.810 Lymphocytopenia; Z79.01 Long term (current) use of anticoagulants; Z87.891 Personal history of nicotine dependence; Z87.11 Personal history of peptic ulcer disease; Q54.9 Hypospadias, unspecified
CPT/HCPCS: 36415; 36556; 36600; 71045; 71275; 74018; 80048; 80053; 81001; 82550; 82553; 82728; 82805; 83605; 83615; 83625; 83735; 84145; 84484; 85025; 85379; 85384; 85610; 85730; 86140; 86850; 86900; 86901; 87040; 87070; 87205; 93005; 93306; 94002; 94003; 96365; 96368; 96375; 99291